=== PATIENT | male | born 1940 | race Caucasian/White ===

== ENCOUNTER 2019-09-15 11:15 | Inpatient (IN) | payer MEDICARE, OTHER, SELFPAY ==
[2019-09-15] VITALS (8 sets, daily range): BP systolic 120–158; BP diastolic 60–86; PULSE 70–95; RESP 17–22; TEMP 36.4–36.8; O2SAT 94–100; BMI 31.4; BMI 30.2
--- NOTE | 2019-09-15 12:03 | CT_ITS ---
STUDY: CT ABDOMEN AND PELVIS WITHOUT CONTRAST REASON FOR EXAM: Male, 79 years old. ABD PAIN, DISTENTION, WEAKNESS -- DIARRHEA X1 WEEK AGO, NOW HAS CONSTIPATION X3 DAYS -- FELL X1 WEEK AGO- LARGE CONTUSION MID BACK -- HX-TIA,AFIB,HTN,DIAB,GERD RADIATION DOSAGE (If Supplied By Facility): CTDIvol = ( 17.98 ) mGy, DLP = ( 875.73 ) mGycm TECHNIQUE: Transaxial images were obtained from the dome of the diaphragm to the symphysis pubis without oral contrast, and without intravenous contrast. Sagittal and coronal images were reconstructed. Individualized dose optimization techniques were used for this CT. COMPARISON: None. FINDINGS: The visualized lung bases are unremarkable. The visualized portions of the heart are within normal limits. Normal liver. There are multiple gallstones. Normal spleen. Normal pancreas. Normal bilateral adrenal glands. There is moderate to severe by the hydronephrosis is more prominent on the left side most likely due to urinary bladder outlet obstruction. There is peritoneal fat stranding bilaterally more prominent on the left side suggesting pyelonephritis. Normal visualized stomach. Normal small intestine. There are multiple colonic diverticula consistent with diverticulosis. There is non-visualization of the appendix. There is diffuse atherosclerotic calcification of the abdominal aorta, without a demonstrated aneurysm. Normal inferior vena cava. Normal retroperitoneum. Normal urinary bladder. Normal abdominal wall. There are diffuse degenerative changes of the visualized lumbar spine. CT/Abdomen/Pelvis without Cont IMPRESSION: There is moderate to severe by the hydronephrosis is more prominent on the left side most likely due to urinary bladder outlet obstruction. There is peritoneal fat stranding bilaterally more prominent on the left side suggesting pyelonephritis. Cholelithiasis. Electronically Signed: Benjamín Young, at 13:08 EDT Tel , Service support ,
--- NOTE | 2019-09-15 12:04 | EKG12_ITS ---
Test Reason : SYNC Blood Pressure : / mmHG Vent. Rate : 082 BPM Atrial Rate : 090 BPM P-R Int : 000 ms QRS Dur : 082 ms QT Int : 382 ms P-R-T Axes : 000 052 059 degrees QTc Int : 446 ms Atrial fibrillation with premature ventricular or aberrantly conducted complexes Abnormal ECG Confirmed by FRANK CLARKE, KYLEE ([id number]), editor in chief newspaper ERICK RED ([id number]) on 09/16/2019 3:43:40 PM Referred By: DORIAN Confirmed By:KYLEE MARIE MD
--- NOTE | 2019-09-15 12:04 | ED.VIS.GEN ---
History of Present Illness Chief Complaint: Weakness Informant: Patient Onset: Days - 4- Context: Gradual Onset Timing: Continuous Quality: weak Location: all over, nonfocal Current Severity: Severe Maximum Severity: Severe Worsened by: nothing in particular Relieved by: nothing Associated Symptoms: abd distension, no BM x 4d Narrative: Patient states he started having diarrhea about a week ago, it lasted 3 or 4 days and was fairly intense, he had some nausea but no vomiting. Afterward she started having abdominal distention and feeling weaker and weaker despite resolution of the diarrhea. He has had 3 falls recently as a result, 1 of them was today just prior to arrival, after getting out of the shower. He states he never felt lightheaded or had any near syncopal or syncopal episodes, simply just weakness in his legs to the point of falling. He states he sustained a scrape to his left knee but no other injuries. He states weakness is the same bilaterally and in his lower and upper extremities, no back pain associated with this or any of the falls. - Past Medical History (1) GERD (gastroesophageal reflux disease) Status: Chronic (2) Osteoarthritis Status: Chronic (3) HTN (hypertension) Status: Chronic (4) Hyperlipidemia Status: Chronic (5) Type 2 diabetes mellitus with diabetic nephropathy, without long-term current use of insulin Status: Chronic (6) BPH (benign prostatic hyperplasia) Status: Chronic (7) GOLDEN treated with BiPAP Status: Chronic (8) CVA (cerebral vascular accident) Status: Chronic (9) Multiple thyroid nodules Status: Chronic (10) Periodic limb movement disorder Status: Chronic (11) PAF (paroxysmal atrial fibrillation) Status: Chronic Past Medical History - Allergies and Home Meds Allergies/Adverse Reactions: Allergies Penicillins Allergy (Verified 09/15/19 11:16) Hives Primary Care Physician: Brady Drake MD [Primary Care Provider] - Smoking Status: Former smoker Review of Systems General: Reports: Malaise. Denies: Chills, Fever, Sweats Eyes: Denies: Visual changes - bilaterally, Diplopia ENT: Denies: Rhinorrhea, Sore throat Cardiovascular: Denies: Chest pain, Palpitations Respiratory: Denies: Dyspnea, Cough, Dyspnea on exertion Gastrointestinal: Reports: Abdominal pain, Constipation - ? -- no BM in 4d. Denies: Nausea, Vomiting, Diarrhea, Melena, Hematochezia Genitourinary: Denies: Dysuria, Hematuria, Frequency Musculoskeletal: Denies: Neck pain, Back pain, Swelling, Extremity Pain Skin: Reports: Abrasions - left knee. Denies: Rash Neurological: Reports: Weakness - all over, nonfocal, including BUE, Parasthesia - BLE chronic. Denies: Headache Physical Exam Vital Signs/Narrative: Vital Signs Temp Pulse Resp BP Pulse Ox 09/15/19 11:17 97.6 F L 70 17 120/71 100 Inital Vital Signs reviewed: Yes General: Well nourished, Well developed, No Acute Distress - keenly alert, conversive, GCS 15 Head: Normocephalic, Atraumatic Eyes: Perrl, EOMI ENT: Moist mucous membranes, No rhinorrhea, TM's clear Neck: Supple, Nontender, No lymphadenopathy Cardiovascular: Regular rate, Regular rhythm, No murmurs Respiratory: No distress, CTA bilaterally, Chest nontender Abdomen: Soft, Normal bowel sounds, No masses, Tender - LLQ, - - Distended. Negative for: Guarding, Rebound tenderness Back: Nontender, Normal Inspection. Negative for: CVA tenderness Extremities: Nontender, No edema. Negative for: Calf Tenderness Skin: Normal color, No rash, No Trauma Neurological: Alert, Oriented x3, Cranial nerves II-XII grossly intact, Normal Strength, Parasthesia - both feet Psychological: Normal affect, Normal Mood Diagnostic/Tx/Re-eval Impressions Abdomen/Pelvis CT 09/15/19 12:03 IMPRESSION: There is moderate to severe by the hydronephrosis is more prominent on the left side most likely due to urinary bladder outlet obstruction. There is peritoneal fat stranding bilaterally more prominent on the left side suggesting pyelonephritis. Cholelithiasis. Electronically Signed: Benjamín Young, at 13:08 EDT Tel , Service support , 09/15/19 12:03 Abdomen/Pelvis without Cont [CT] Stat Laboratory Results 09/15/19 09/15/19 09/15/19 11:20 11:20 12:25 WBC 13.7 H RBC 3.49 L Hgb 10.7 L Hct 31.6 L MCV 90.5 MCH 30.7 MCHC 33.9 RDW Std Deviation 41.1 RDW Coeff of Vera 12.6 Plt Count 298 MPV 10.0 Immature Gran % (Auto) 0.300 Neut % (Auto) 74.5 H Lymph % (Auto) 11.3 L [place] % (Auto) 13.7 H Eos % (Auto) 0.1 Baso % (Auto) 0.1 Absolute Neuts (auto) 10.2 H Absolute Lymphs (auto) 1.55 Nucleated RBC % 0 Differential Comment COMMENT Diff Path Review May foll Sodium 130 L Potassium 5.2 H Chloride 99 Carbon Dioxide 16.0 L Anion Gap 15 BUN 98 H Creatinine 5.72 H Estim Creat Clear Calc 10.81 Est GFR (MDRD) Af Amer 12 L Est GFR (MDRD) Non-Af 10 L BUN/Creatinine Ratio 17.1 Glucose 122 H Calcium 8.5 Total Bilirubin 0.40 AST 31 ALT 42 Alkaline Phosphatase 151 H Troponin I 0.129 H Total Protein 7.8 Albumin 3.3 Globulin 4.5 H Albumin/Globulin Ratio 0.7 L Lipase 1035 H Urine Color Yellow Urine Clarity Sl. Cloudy Urine pH 6.0 Ur Specific [place] 1.010 Urine Protein 30 H Urine Glucose (UA) Normal Urine Ketones Negative Urine Occult Blood 25 H Urine Nitrite Negative Urine Bilirubin Negative Urine Urobilinogen Normal Ur Leukocyte Esterase Negative Urine RBC 0-5 SEEN Urine WBC 0 SEEN Ur Squamous Epith Cells 0 SEEN Urine Bacteria 1+ Urine Mucus 0 SEEN - Rhythm Strip Rhythm Strip: A-fib Rate: 80 Ectopy: None - EKG Initial EKG Interpretation: No Acute Injury Pattern, Atrial Fibrillation - Rate controlled in the 80s - Medical Decision Making Patient has significant renal failure. He does not have any old labs here available for comparison, but he has a list of diagnoses from the [facility], and there is no renal issues there. This may be why he is feeling so poorly, in addition to the fact that he is borderline uremic. His troponin is nonspecifically elevated. He has a leukocytosis of unknown significance, he has an elevated lipase around the thousand. His abdominal CT does not show obvious etiology of the lipase elevation, he has findings that are consistent with bladder outlet obstruction and possibly bilateral pyelonephritis but his urine does not show signs of infection and he does not have CVA tenderness, also of unknown significance. I discussed with Dr. toth who looked at his scan. It appears he may have a mass in his bladder, and he likely has urinary retention since he is urinating frequently, relatively small amounts, and looks like he has a liter or more of urine in his bladder. He recommends a Hernandes catheter which is placed after we bladder scanned him post void for over 1000 cc. I suspect his elevated troponin is due to his renal failure, he does not have any symptoms of angina or signs of injury on the EKG which shows chronic rate controlled atrial fibrillation. Plan is for admission and further evaluation/testing/treatment. ED Disposition - Plan for ED Patient: Disposition: Acute Care Hospital [facility] Diagnosis: Acute renal failure, Elevated lipase, Atrial fibrillation, Acute urinary retention Referrals: Brady Drake MD [Primary Care Provider] -
[2019-09-15 12:27] LABS: Absolute Lymphocyte Count 1.55 X10^3/uL (0.83-4.51); Absolute Neutrophil Count 10.2 X10^3/uL (2.0-7.7); Basophil# 0.02 X10^3/uL; Basophil% 0.1 % (0-1); Eosinophil# 0.01 X10^3/uL; Eosinophils% 0.1 % (0-5); Hematocrit 31.6 % (40-54); Hemoglobin 10.7 g/dL (13.0-16.5); Lymphocyte # 1.55 X10^3/ul (4.0); Lymphocyte % 11.3 % (19-41); Mean Corp Hgb Conc 33.9 g/dL (32-36); Mean Corpuscular Hgb 30.7 pg (27.0-32.0); Mean Corpuscular Volume 90.5 fL (80-94); Monocyte# 1.87 X10^3/uL; Monocyte% 13.7 % (0-10); NRBC Flagged by Analyzer 0 % (0-5); Neutrophil # 10.17 X10^3/uL (2.7-7.7); Neutrophil % 74.5 % (47-70); POSITIVE DIFFERENTIAL YES; Platelet Count 298 K/mm3 (150-450); RBC Distribution Width CV 12.6 % (11.6-14.6); RBC Distribution Width SD 41.1 fl (35.1-43.9); Red Blood Count 3.49 M/mm3 (4.6-6.2); White Blood Count 13.7 K/mm3 (4.4-11.0)
[2019-09-15] MEDS: 0.9% Normal Saline 1,000 ML 125 ML IV ×2 (12:31→20:08)
[2019-09-15 12:35] LABS: Differential Indicated SCAN CRITERIA MET
[2019-09-15 12:41] LABS: Mucous, Urine 0 SEEN /hpf (<or=2+); Squamous Epithelial Cells - UA 0 SEEN /hpf (0-5); White Blood Cells 0 SEEN /hpf (0-5)
[2019-09-15 12:41] LABS: Albumin, Serum 3.3 g/dL (3.2-5.0); BUN 98 mg/dL (7-18); BUN/Creat Ratio 17.1 RATIO (10-20); Creatinine, Serum 5.72 mg/dL (0.70-1.30); EST Glomerular Filtration Rate 10 mL/min (>60); Est Glom Filt Rate - Afr Amer 12 mL/min (>60); Estimated Creatinine Clearance 10.81 ml/min; Glucose 122 mg/dL (74-106); Protein, Total 7.8 g/dL (6.4-8.2)
[2019-09-15 12:42] LABS: ALB/GLOB Ratio 0.7 RATIO (0.9-2.4); AST(SGOT) 31 U/L (15-37); Alanine Aminotransfer ALT/SGPT 42 U/L (16-61); Alkaline Phosphatase 151 U/L (45-117); Anion Gap 15 (5-15); Calcium,Total 8.5 mg/dL (8.5-10.1); Chloride 99 mmol/L (98-107); Globulin 4.5 g/dL (2.2-4.2); Lipase 1035 U/L (73-393); Potassium 5.2 mmol/L (3.5-5.1); Sodium Level 130 mmol/L (136-145)
[2019-09-15 12:44] LABS: Color, Urine Yellow (Yellow); Glucose, Dipstick Normal (Normal); Ketone-Dipstick Negative (Negative); Leukocyte Esterase-Dipstick Negative /ul (Negative); Nitrite-Dipstick Negative (Negative); Occult Blood-Urine 25 /ul (Negative); Protein-Dipstick 30 mg/dl (Negative); Urine Bilirubin Dipstick Negative (Negative); Urine Clarity Sl. Cloudy (Clear); Urine Urobilinogen Normal (Normal)
[2019-09-15 12:49] LABS: Bacteria 1+ /hpf (None Seen); Red Blood Cells-Urine 0-5 SEEN /hpf (0-5)
--- NOTE | 2019-09-15 15:04 | HP.PCM_ITS ---
Problem List (1) Acute pancreatitis Status: Acute (2) Bladder outlet obstruction Status: Acute (3) Acute kidney injury Status: Acute (4) GERD (gastroesophageal reflux disease) Status: Chronic (5) Osteoarthritis Status: Chronic (6) HTN (hypertension) Status: Chronic (7) Hyperlipidemia Status: Chronic (8) Type 2 diabetes mellitus with diabetic nephropathy, without long-term current use of insulin Status: Chronic (9) BPH (benign prostatic hyperplasia) Status: Chronic (10) GOLDEN treated with BiPAP Status: Chronic (11) CVA (cerebral vascular accident) Status: Chronic (12) Multiple thyroid nodules Status: Chronic (13) Periodic limb movement disorder Status: Chronic (14) PAF (paroxysmal atrial fibrillation) Status: Chronic (15) Acute urinary retention Status: Acute History of Present Illness Date of Admission: 09/15/19 Chief Complaint: Abdominal distention and diarrhea for 4 days The patient is a 79 year old M with multiple comorbidities as listed above for abdominal distention. Prior to that he had diarrhea about a week ago for which he took [id number] Lomotil which resulted into constipation and he did not move bowel for 3 to 4 days. Patient had distention along with mid abdominal pain which migrated to flanks and on the back mainly on left upper back. Patient denies fever, chills, cough, chest pain or pressure. Denies GI bleed. Patient has increased frequency and urgency with incomplete emptying of bladder. Has chronic bladder incontinence and BPH. Denies burning micturition or fever. In ED, vitals are stable. Initial labs in ER shows BUN/creatinine 98/5.72, leukocytosis with left shift. Sodium 130, K5.2, bicarb 16 with anion gap 15. UA 0 WBC, negative nitrite and leukocyte esterase. CT abdomen and pelvis without contrast was done. Reported moderate to severe bilateral hydronephrosis left more than right due to bladder outlet obstruction. [] 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) BPH (benign prostatic hyperplasia) (Chronic) GOLDEN treated with BiPAP (Chronic) CVA (cerebral vascular accident) (Chronic) Multiple thyroid nodules (Chronic) Periodic limb movement disorder (Chronic) PAF (paroxysmal atrial fibrillation) (Chronic) Allergies Penicillins Allergy (Verified 09/15/19 11:16) Hives Home Medications: Ambulatory Orders Medication Instructions Recorded Apixaban [Eliquis] 5 mg PO BID 09/15/19 Hydrochlorothiazide 12.5 mg PO DAILY 09/15/19 Lisinopril [Zestril] 20 mg PO DAILY 09/15/19 Metformin HCl 500 mg PO DAILY 09/15/19 Pantoprazole Sodium [Protonix] 20 mg PO DAILY 09/15/19 Rosuvastatin Calcium [Crestor] 40 mg PO DAILY 09/15/19 Tamsulosin HCl 0.4 mg PO QHS 09/15/19 Smoking Status: Former smoker Review of Systems Constitutional: Reports: Anorexia, Malaise, Weakness. Denies: Chills, Fever HEENT: Denies: Head Aches, Sinus Congestion, Sinus Drainage Cardiovascular: Denies: Chest Pain, Palpitations Respiratory: Reports: Shortness of breath upon exertion. Denies: Cough, Shortness of breath at rest, Sputum production Gastrointestinal: Denies: Abdominal Pain, Nausea, Vomiting Genitourinary: Reports: Frequency, Hesitancy, Incontinence, Retention, Urgency. Denies: Dysuria Musculoskeletal: Reports: Joint Pain. Denies: Joint Tenderness Skin: Denies: Rash, Wounds Neurological: Reports: Balance problems. Denies: Focal weakness, Numbness, Tingling Psychiatric: Denies: Anxiety, Depression, Homicidal Ideations, Suicidal Ideations Hematologic/ Lymphatic: Denies: Easy Bruising, Easy Bleeding VTE Information - Inpt Only VTE Present on Admission: No VTE Mechan Device Prophylaxis: None VTE Pharm Prophylaxis ordered?: Yes Patient Problems: Active and Suspected Problems Acute urinary retention (Acute) Acute pancreatitis (Acute) Bladder outlet obstruction (Acute) Acute kidney injury (Acute) - Physical Exam Vitals/I&O's: Vital Signs Temp Pulse Resp BP Pulse Ox 97.6 F L 82 22 H 158/74 H 96 09/15/19 11:17 09/15/19 13:25 09/15/19 13:25 09/15/19 13:25 09/15/19 13:25 Oxygen Delivery Method Room Air Weight: 222 lb 7.143 oz Body Mass Index (BMI) 31.4 General: Alert, Oriented x3, Cooperative HEENT: Atraumatic, PERRLA, EOMI, Normocephalic Oral: No Gingival or Mucosal Lesions/ Ulcerations, Dry Mucosa Neck: Supple, No JVD, Negative Carotid Bruits Lungs: Clear to auscultation, Normal air movement, No rhonchi, No wheeze, No rales Cardiovascular: Regular rate, No murmurs Abdomen: Bowel Sounds Present, Soft, Hypoactive Bowel Sounds, Distended - Generalized abdominal distention mainly in the mid abdomen., Tender - Mild tenderness present around mid abdomen. Tenderness also present on the left renal angle/left paravertebral region Extremities: No edema, Capillary Refill Less than 3 Seconds Skin: No rashes, No breakdown Musculoskeletal: No Tenderness to Palpation of Joints or Extremities Neurological: Cranial nerves II-XII grossly intact Psych/Mental Status: Normal Affect, Appropriate Laboratory Results 09/15/19 11:20: WBC 13.7 H, RBC 3.49 L, Hgb 10.7 L, Hct 31.6 L, MCV 90.5, MCH 30.7, MCHC 33.9, RDW Std Deviation 41.1, RDW Coeff of Vera 12.6, Plt Count 298, MPV 10.0, Immature Gran % (Auto) 0.300, Neut % (Auto) 74.5 H, Lymph % (Auto) 11.3 L, [place] % (Auto) 13.7 H, Eos % (Auto) 0.1, Baso % (Auto) 0.1, Absolute Neuts (auto) 10.2 H, Absolute Lymphs (auto) 1.55, Nucleated RBC % 0, Differential Comment COMMENT, Diff Path Review August09/15/19 11:20: Sodium 130 L, Potassium 5.2 H, Chloride 99, Carbon Dioxide 16.0 L, Anion Gap 15, BUN 98 H, Creatinine 5.72 H, Estim Creat Clear Calc 10.81, Est GFR (MDRD) Af Amer 12 L, Est GFR (MDRD) Non-Af 10 L, BUN/Creatinine Ratio 17.1, Glucose 122 H, Calcium 8.5, Total Bilirubin 0.40, AST 31, ALT 42, Alkaline Phosphatase 151 H, Troponin I 0.129 H, Total Protein 7.8, Albumin 3.3, Globulin 4.5 H, Albumin/Globulin Ratio 0.7 L, Lipase 1035 H 09/15/19 12:25: Urine Color Yellow, Urine Clarity Sl. Cloudy, Urine pH 6.0, Ur Specific [place] 1.010, Urine Protein 30 H, Urine Glucose (UA) Normal, Urine Ketones Negative, Urine Occult Blood 25 H, Urine Nitrite Negative, Urine Bilirubin Negative, Urine Urobilinogen Normal, Ur Leukocyte Esterase Negative, Urine RBC 0-5 SEEN, Urine WBC 0 SEEN, Ur Squamous Epith Cells 0 SEEN, Urine Ba cteria 1+, Urine Mucus 0 SEEN Current Medications Sodium Chloride () 1,000 mls @ 125 mls/hr IV .Q8H SANDER Last Admin: 09/15/19 12:31 Dose: 125 mls/hr Documented by: Assessment/Plan All Active Problems Acute urinary retention (Acute) Acute pancreatitis (Acute) Bladder outlet obstruction (Acute) Acute kidney injury (Acute) The patient is a 79 year old M with multiple comorbidities as listed above for abdominal distention and abdominal pain. Patient has increased frequency and urgency with incomplete emptying of bladder. Has chronic bladder incontinence and BPH. Denies burning micturition or fever. In ED, vitals are stable. Initial labs in ER shows BUN/creatinine 98/5.72, leukocytosis with left shift. Sodium 130, K5.2, bicarb 16 with anion gap 15. UA 0 WBC, negative nitrite and leukocyte esterase. CT abdomen and pelvis without contrast was done. Reported moderate to severe bilateral hydronephrosis left more than right due to bladder outlet obstruction. 1. Acute kidney injury on CKD stage III secondary to bladder outlet obstruction/BPH/neurogenic bladder and bilateral pyelonephritis predominantly left-sided: Patient is being admitted in PCU. IV fluid normal saline 125 mils per hour. Monitor intake and output, electrolytes and kidney function. Patient had Hernandes catheter inserted in the ED. 1000 mL clear urine came out spontaneously. Urologist Dr. Couch is been consulted from ER physician. CT reported mild peritoneal fat stranding bilaterally more prominent left side suggesting pyonephritis. UA is bland.. Urine culture ordered. Empirically started on IV ceftriaxone. Patient had hives many years ago after penicillin. Solu-Medrol 60 mg IV 1 dose half an hour prior to ceftriaxone. Hold nephrotoxic medications including HCTZ, metformin, lisinopril and Crestor. 2. Acute pancreatitis, exact etiology unclear: Lipase is elevated. CT abdomen shows multiple gallstones probably asymptomatic as patient does not have right upper quadrant or epigastric tenderness. Patient has retroperitoneal inflammation/infiltrates on the CT abdomen probably from left pyelonephritis. Discussed with the surgeon. He agreed to see patient. Keep the patient n.p.o. except medications IV fluid normal saline. 3. Electrolyte abnormality: Hyponatremia and hypokalemia most likely secondary to hypovolemia/volume depletion: IV fluid normal saline. Repeat electrolytes. EKG shows A. fib with PVCs at 82 bpm. 4. Paroxysmal A. fib on heart rate is controlled. Hold Eliquis as creatinine clearance about 10 mL/min. 5. Type 2 diabetes mellitus with diabetic nephropathy: Accu-Chek SHS cover with blood sliding scale. 6. Old CVA with residual gait disorder cream: PT and OT ordered. 7. Other comorbidities include hypertension, dyslipidemia, obstructive sleep apnea on BiPAP, periodic limb movement disorder: Patient abdominal distention may be partially from BiPAP. Hold on BiPAP for few days until abdominal distention resolved. Multiple comorbidities complicates the present care and expect difficult and delay recovery DVT prophylaxis: On heparin 5000 units cutaneous twice daily Living will/advanced directive/end of life care: Patient does have living will or advanced directive. After discussion of procedures involved with full code, DNR CC arrest and DNR CC, the patient opted for DNR-CC Arrest Patient does not want artificial life support including intubation, tube feed, ventilator and/chest compression, central venous catheter, vasopressor and DC shock if needed DNR CC arrest. Total time spent in [id number] encounter in discussion of advanced directive 16 minutes. Clinical Impression(s) from Imaging Studies Abdomen/Pelvis CT 09/15/19 12:03 IMPRESSION: There is moderate to severe by the hydronephrosis is more prominent on the left side most likely due to urinary bladder outlet obstruction. There is peritoneal fat stranding bilaterally more prominent on the left side suggesting pyelonephritis. Cholelithiasis. Inpatient E&M: 50724 Init Hosp L3 Procedures: 38994 Advncd Care Plan 30 Min
--- NOTE | 2019-09-15 16:47 | PCM.CONS.U ---
Problem List (1) BPH (benign prostatic hyperplasia) Status: Chronic Qualifiers: Lower urinary tract symptom detail: urinary retention Qualified Code(s): N40.1 - Benign prostatic hyperplasia with lower urinary tract symptoms; R33.8 - Other retention of urine Comment: Bilateral hydronephrosis Reason for Consult Date of Consultation: 09/15/19 Reason for Consultation: Bilateral hydronephrosis acute urinary retention and BPH with obstruction History of Present Illness: The patient is a 79 year old male who presented to the hospital with abdominal pain and had been urinating frequently small volumes now for quite some time could not really remember how long, he did see a urologist long time ago but has not seen one in a while. No history of prostate cancer. No history of prior prostate surgery. Presented with abdominal pain CAT scan was done that demonstrated bilateral hydronephrosis and a distended bladder catheter was put in a significant volume of urine was drained out another urine is slightly bloody but clearing. He does have an elevated creatinine on admission with acute kidney injury. 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) BPH (benign prostatic hyperplasia) (Chronic) Bilateral hydronephrosis GOLDEN treated with BiPAP (Chronic) CVA (cerebral vascular accident) (Chronic) Multiple thyroid nodules (Chronic) Periodic limb movement disorder (Chronic) PAF (paroxysmal atrial fibrillation) (Chronic) Allergies Penicillins Allergy (Verified 09/15/19 11:16) Hives Home Medications: Ambulatory Orders Medication Instructions Recorded Apixaban [Eliquis] 5 mg PO BID 09/15/19 Hydrochlorothiazide 12.5 mg PO DAILY 09/15/19 Lisinopril [Zestril] 20 mg PO DAILY 09/15/19 Metformin HCl 500 mg PO DAILY 09/15/19 Pantoprazole Sodium [Protonix] 20 mg PO DAILY 09/15/19 Rosuvastatin Calcium [Crestor] 40 mg PO DAILY 09/15/19 Tamsulosin HCl 0.4 mg PO QHS 09/15/19 Surgical History: no surgical history Smoking Status: Former smoker Review of Systems Constitutional: Denies: Chills, Fever, Weight Change HEENT: Denies: Head Aches, Sinus Congestion, Sinus Drainage Cardiovascular: Denies: Chest Pain, Palpitations Respiratory: Denies: Cough, Shortness of breath at rest, Sputum production Gastrointestinal: Denies: Abdominal Pain, Nausea, Vomiting Genitourinary: Denies: Dysuria Musculoskeletal: Denies: Joint Pain, Joint Tenderness Skin: Denies: Rash, Wounds Neurological: Denies: Numbness, Tingling, Focal weakness Psychiatric: Denies: Anxiety, Depression, Homicidal Ideations, Suicidal Ideations Hematologic/ Lymphatic: Denies: Easy Bruising, Easy Bleeding Physical Exam - Physical Exam Vital Signs Temp 98 F 09/15/19 15:40 Pulse 77 09/15/19 16:00 Resp 18 09/15/19 15:40 BP 153/71 H 09/15/19 15:40 Pulse Ox 94 09/15/19 15:40 Intake & Output 09/13/19 09/14/19 09/15/19 23:59 23:59 23:59 Weight: 95.5 kg General: Alert, Oriented x3 HEENT: Atraumatic Oral: Moist Mucosa Neck: Supple Lungs: Normal air movement Cardiovascular: Regular Rhythm Abdomen: Soft, Obese Laboratory Tests Past 24 Hrs 09/15/19 09/15/19 09/15/19 11:20 11:20 12:25 WBC 13.7 H RBC 3.49 L Hgb 10.7 L Hct 31.6 L MCV 90.5 MCH 30.7 MCHC 33.9 RDW Std Deviation 41.1 RDW Coeff of Vera 12.6 Plt Count 298 MPV 10.0 Immature Gran % (Auto) 0.300 Neut % (Auto) 74.5 H Lymph % (Auto) 11.3 L [place] % (Auto) 13.7 H Eos % (Auto) 0.1 Baso % (Auto) 0.1 Absolute Neuts (auto) 10.2 H Absolute Lymphs (auto) 1.55 Nucleated RBC % 0 Differential Comment COMMENT Diff Path Review May foll Sodium 130 L Potassium 5.2 H Chloride 99 Carbon Dioxide 16.0 L Anion Gap 15 BUN 98 H Creatinine 5.72 H Estim Creat Clear Calc 10.81 Est GFR (MDRD) Af Amer 12 L Est GFR (MDRD) Non-Af 10 L BUN/Creatinine Ratio 17.1 Glucose 122 H Calcium 8.5 Total Bilirubin 0.40 GGT AST 31 ALT 42 Alkaline Phosphatase 151 H Troponin I 0.129 H Total Protein 7.8 Albumin 3.3 Globulin 4.5 H Albumin/Globulin Ratio 0.7 L Lipase 1035 H Urine Color Yellow Urine Clarity Sl. Cloudy Urine pH 6.0 Ur Specific [place] 1.010 Urine Protein 30 H Urine Glucose (UA) Normal Urine Ketones Negative Urine Occult Blood 25 H Urine Nitrite Negative Urine Bilirubin Negative Urine Urobilinogen Normal Ur Leukocyte Esterase Negative Urine RBC 0-5 SEEN Urine WBC 0 SEEN Ur Squamous Epith Cells 0 SEEN Urine Bacteria 1+ Urine Mucus 0 SEEN 09/15/19 09/15/19 15:57 15:57 WBC RBC Hgb Hct MCV MCH MCHC RDW Std Deviation RDW Coeff of Vera Plt Count MPV Immature Gran % (Auto) Neut % (Auto) Lymph % (Auto) [place] % (Auto) Eos % (Auto) Baso % (Auto) Absolute Neuts (auto) Absolute Lymphs (auto) Nucleated RBC % Differential Comment Diff Path Review Sodium Potassium Chloride Carbon Dioxide Anion Gap BUN Creatinine Estim Creat Clear Calc Est GFR (MDRD) Af Amer Est GFR (MDRD) Non-Af BUN/Creatinine Ratio Glucose Calcium Total Bilirubin GGT Pending AST ALT Alkaline Phosphatase Troponin I 0.147 H Total Protein Albumin Globulin Albumin/Globulin Ratio Lipase Urine Color Urine Clarity Urine pH Ur Specific [place] Urine Protein Urine Glucose (UA) Urine Ketones Urine Occult Blood Urine Nitrite Urine Bilirubin Urine Urobilinogen Ur Leukocyte Esterase Urine RBC Urine WBC Ur Squamous Epith Cells Urine Bacteria Urine Mucus Assessment/Plan All Active Problems Acute urinary retention (Acute) Acute pancreatitis (Acute) Bladder outlet obstruction (Acute) Acute kidney injury (Acute) 79-year-old male who presents with bladder outlet obstruction, BPH with obstruction, distended urinary bladder retention of urine, bilateral hydronephrosis. Very large prostate. He will need to continue with Hernandes catheter drainage. The urine slightly bloody today so continue with gentle irrigation manually as needed also gentle hydration. Follow creatinines hopefully his kidney function will improve to normal but will see where it nadirs at. I spoke to the patient regarding this condition today I told him most likely he will need prostate surgery and a prostate biopsy make sure he does not prostate cancer. For now continue with catheter drainage. I will follow him while he is in the hospital.
[2019-09-15 17:00] LABS: GGTP 185 U/L (15-85)
[2019-09-15 18:15] LABS: Bedside Glucose 98 mg/dL (70-110)
[2019-09-15] MEDS: Tamsulosin HCl 0.4 MG Capsule PO (22:09)
[2019-09-15] MEDS: Heparin Injection (Vial) 5,000 UNIT/ML VIAL 5000 UNIT SC (22:09)
[2019-09-16] VITALS (14 sets, daily range): BP systolic 76–104; BP diastolic 41–60; PULSE 63–87; RESP 16–18; TEMP 36.2–36.9; O2SAT 95–100
[2019-09-16 00:01] LABS: Bedside Glucose 120 mg/dL (70-110)
[2019-09-16 05:25] LABS: Absolute Lymphocyte Count 0.72 X10^3/uL (0.83-4.51); Absolute Neutrophil Count 7.7 X10^3/uL (2.0-7.7); Basophil# 0.01 X10^3/uL; Basophil% 0.1 % (0-1); Hematocrit 30.4 % (40-54); Lymphocyte # 0.72 X10^3/ul (4.0); Lymphocyte % 8.1 % (19-41); Mean Corp Hgb Conc 32.9 g/dL (32-36); Mean Corpuscular Hgb 30.5 pg (27.0-32.0); Mean Corpuscular Volume 92.7 fL (80-94); Mean Platelet Vol. 9.9 fl (6.2-12.0); Monocyte# 0.43 X10^3/uL; Monocyte% 4.8 % (0-10); NRBC Flagged by Analyzer 0 % (0-5); Neutrophil # 7.72 X10^3/uL (2.7-7.7); Neutrophil % 86.6 % (47-70); POSITIVE MORPHOLOGY YES; Platelet Count 280 K/mm3 (150-450); RBC Distribution Width CV 12.9 % (11.6-14.6); RBC Distribution Width SD 43.4 fl (35.1-43.9); Red Blood Count 3.28 M/mm3 (4.6-6.2); White Blood Count 8.9 K/mm3 (4.4-11.0)
[2019-09-16 05:30] LABS: Differential Indicated SCAN CRITERIA MET
[2019-09-16 05:46] LABS: ALB/GLOB Ratio 0.6 RATIO (0.9-2.4); AST(SGOT) 33 U/L (15-37); Alanine Aminotransfer ALT/SGPT 42 U/L (16-61); Albumin, Serum 2.7 g/dL (3.2-5.0); Alkaline Phosphatase 142 U/L (45-117); Anion Gap 16 (5-15); BUN 96 mg/dL (7-18); BUN/Creat Ratio 18.8 RATIO (10-20); Calcium,Total 7.7 mg/dL (8.5-10.1); Chloride 109 mmol/L (98-107); Creatinine, Serum 5.12 mg/dL (0.70-1.30); EST Glomerular Filtration Rate 12 mL/min (>60); Est Glom Filt Rate - Afr Amer 14 mL/min (>60); Estimated Creatinine Clearance 12.08 ml/min; Globulin 4.2 g/dL (2.2-4.2); Glucose 127 mg/dL (74-106); Lipase 660 U/L (73-393); Magnesium 1.2 mg/dL (1.6-2.6); Phosphorus 6.2 mg/dL (2.5-4.9); Potassium 5.5 mmol/L (3.5-5.1); Protein, Total 6.9 g/dL (6.4-8.2); Sodium Level 135 mmol/L (136-145)
[2019-09-16 06:41] LABS: Bedside Glucose 118 mg/dL (70-110)
--- NOTE | 2019-09-16 07:10 | PCM.PROGNOTE ---
Patient Problems: Active and Suspected Problems Acute urinary retention (Acute) Acute pancreatitis (Acute) Bladder outlet obstruction (Acute) Acute kidney injury (Acute) Subjective: 79-year-old male admitted for retention of urine bilateral hydronephrosis elevated creatinine, creatinine today is still fairly high at 5.1 he still making urine, the urine is clearing and less bloody today. Is hoping that the creatinine would come down little further but still fairly high. Also in reviewing his records his troponin was elevated I explained to the patient probably would not be able to do any surgery on him until he gets cardiac clearance with an elevated troponin. He denies any chest pain or shortness of breath etc. but may be prudent to have him see cardiology here for clearance. He is in agreement with that. - Physical Exam Vitals/I&O's: Vital Signs Temp Pulse Resp BP Pulse Ox 98.2 F 77 18 95/60 99 09/16/19 03:40 09/16/19 03:40 09/16/19 03:40 09/16/19 03:40 09/16/19 03:40 Oxygen Delivery Method Room Air Weight: 95.5 kg Body Mass Index (BMI) 30.2 Intake and Output for Last 24 Hours 09/14/19 09/15/19 09/16/19 23:59 23:59 23:59 Intake Total 1070.41 / 1070.41 1000 / 1000 Output Total 3050 / 3050 1000 / 1000 Balance -1978.59 / -1978.59 0 / 0 General: Alert, Oriented x3, Cooperative HEENT: Atraumatic, PERRLA, EOMI, Normocephalic Neck: Supple, No JVD, Negative Carotid Bruits Lungs: Clear to auscultation, Normal air movement Cardiovascular: Regular rate, No murmurs Abdomen: Bowel Sounds Present, Soft, Non Tender Extremities: No edema, Capillary Refill Less than 3 Seconds Skin: No rashes, No breakdown Musculoskeletal: No Tenderness to Palpation of Joints or Extremities Neurological: Cranial nerves II-XII grossly intact Psych/Mental Status: Normal Affect, Appropriate Laboratory Results 09/15/19 11:20: WBC 13.7 H, RBC 3.49 L, Hgb 10.7 L, Hct 31.6 L, MCV 90.5, MCH 30.7, MCHC 33.9, RDW Std Deviation 41.1, RDW Coeff of Vera 12.6, Plt Count 298, MPV 10.0, Immature Gran % (Auto) 0.300, Neut % (Auto) 74.5 H, Lymph % (Auto) 11.3 L, [place] % (Auto) 13.7 H, Eos % (Auto) 0.1, Baso % (Auto) 0.1, Absolute Neuts (auto) 10.2 H, Absolute Lymphs (auto) 1.55, Nucleated RBC % 0, Differential Comment COMMENT, Diff Path Review August09/15/19 11:20: Sodium 130 L, Potassium 5.2 H, Chloride 99, Carbon Dioxide 16.0 L, Anion Gap 15, BUN 98 H, Creatinine 5.72 H, Estim Creat Clear Calc 10.81, Est GFR (MDRD) Af Amer 12 L, Est GFR (MDRD) Non-Af 10 L, BUN/Creatinine Ratio 17.1, Glucose 122 H, Calcium 8.5, Total Bilirubin 0.40, AST 31, ALT 42, Alkaline Phosphatase 151 H, Troponin I 0.129 H, Total Protein 7.8, Albumin 3.3, Globulin 4.5 H, Albumin/Globulin Ratio 0.7 L, Lipase 1035 H 09/15/19 12:25: Urine Color Yellow, Urine Clarity Sl. Cloudy, Urine pH 6.0, Ur Specific [place] 1.010, Urine Protein 30 H, Urine Glucose (UA) Normal, Urine Ketones Negative, Urine Occult Blood 25 H, Urine Nitrite Negative, Urine Bilirubin Negative, Urine Urobilinogen Normal, Ur Leukocyte Esterase Negative, Urine RBC 0-5 SEEN, Urine WBC 0 SEEN, Ur Squamous Epith Cells 0 SEEN, Urine Bacteria 1+, Urine Mucus 0 SEEN 09/15/19 15:57: Troponin I 0.147 H 09/15/19 15:57: GGT 185 H 09/15/19 18:10: POC Glucose 98 09/15/19 18:40: Troponin I 0.134 H 09/15/19 23:53: POC Glucose 120 H 09/16/19 05:00: WBC 8.9, RBC 3.28 L, Hgb 10.0 L, Hct 30.4 L, MCV 92.7, MCH 30.5, MCHC 32.9, RDW Std Deviation 43.4, RDW Coeff of Vera 12.9, Plt Count 280, MPV 9.9, Immature Gran % (Auto) 0.400, Neut % (Auto) 86.6 H, Lymph % (Auto) 8.1 L, [place] % (Auto) 4.8, Eos % (Auto) 0.0, Baso % (Auto) 0.1, Absolute Neuts (auto) 7.7, Absolute Lymphs (auto) 0.72 L, Nucleated RBC % 0, Differential Comment COMMENT 09/16/19 05:00: Sodium 135 L, Potassium 5.5 H, Chloride 109 H, Carbon Dioxide 10.0 L, Anion Gap 16 H, BUN 96 H, Creatinine 5.12 H, Estim Creat Clear Calc 12.08, Est GFR (MDRD) Af Amer 14 L, Est GFR (MDRD) Non-Af 12 L, BUN/Creatinine Ratio 18.8, Glucose 127 H, Calcium 7.7 L, Phosphorus 6.2 H, Magnesium 1.2 L, Total Bilirubin 0.30, AST 33, ALT 42, Alkaline Phosphatase 142 H, Total Protein 6.9, Albumin 2.7 L, Globulin 4.2, Albumin/Globulin Ratio 0.6 L, Lipase 660 H 09/16/19 05:50: POC Glucose 118 H Current Medications Acetaminophen (Tylenol) 650 mg PO Q6H PRN PRN PRN Reason: Pain Score 1-10/Temp > 100.7 F Albuterol Sulfate (Ventolin Aerosols) 2.5 mg INHALATION Q2H PRN PRN PRN Reason: SOB/Wheezing Dextrose (D50w Syringe) 0 gm IV X1 PRN; Protocol PRN Reason: Hypoglycemia Glucagon () 1 mg IM .X1 PRN PRN Reason: Hypoglycemia Heparin Sodium (Porcine) (Heparin Na) 5,000 unit SC Q12 [facility] Last Admin: 09/15/19 22:09 Dose: 5,000 unit Documented by: Sodium Chloride () 250 mls @ 15 mls/hr IV .[id number] PRN PRN Reason: Saline Flush Sodium Chloride () 250 mls @ 15 mls/hr IV .[id number] PRN PRN Reason: Additional IVPB Infusion Ceftriaxone Sodium 2 gm/ (Sodium Chloride) 50 mls @ 100 mls/hr IV Q24 [facility] Last Infusion: 09/15/19 18:31 Dose: Infused Documented by: Pantoprazole Sodium 40 mg/ (Sodium Chloride) 110 mls @ 330 mls/hr IV Q24 [facility] Last Infusion: 09/15/19 18:27 Dose: Infused Documented by: Insulin Human Lispro (Humalog Kwikpen (Bkc)) 0 unit SC Q6 [facility]; Protocol Last Admin: 09/16/19 06:17 Dose: Not Given Documented by: Morphine Sulfate () 2 mg IV Q3H PRN PRN PRN Reason: Pain Score 4-10/10 Nitroglycerin (Nitrostat) 0.4 mg SUBLINGUAL Q5M PRN PRN Reason: CARDIAC/CHEST PAIN Nutritional Formula (Lactose Free) (Glucerna Shake) 120 ml PO TIDCM [facility] Last Admin: 09/15/19 17:18 Dose: Not Given Documented by: Ondansetron HCl (Zofran) 4 mg IV Q8H PRN PRN PRN Reason: NAUSEA/VOMITING Prochlorperazine Edisylate (Compazine Iv) 5 mg IV Q4H PRN PRN PRN Reason: Breakthrough Nausea/Vomiting Sodium Chloride () 10 - 40 ml IV UD PRN PRN Reason: SALINE FLUSH Tamsulosin HCl (Flomax) 0.4 mg PO QHS [facility] Last Admin: 09/15/19 22:09 Dose: 0.4 mg Documented by: Medical Necessity - Tobacco Use Smoking Status: Former smoker Assessment/Plan All Active Problems Acute urinary retention (Acute) Acute pancreatitis (Acute) Bladder outlet obstruction (Acute) Acute kidney injury (Acute) 79-year-old male multiple medical problems presented to hospital with retention of urine bilateral hydronephrosis elevated creatinine acute kidney injury, hopefully his creatinine will improve with constant drainage some little improvement but not as much as I would anticipate he may have chronic renal sufficiency but time will tell as he continues to recover from his obstruction. He did have an elevated troponin on admission and explained to the patient that I will need cardiac clearance before considering prostate surgery we will see if hospitalist will be willing to do a work-up for him cardiology plasencia? Continue with catheter drainage the urine is clearing and after discharge he can follow-up with me.
--- NOTE | 2019-09-16 07:50 | CON.PCM_ITS ---
Problem List (1) Acute pancreatitis Status: Acute Reason for Consult Date of Consultation: 09/16/19 History of Present Illness: The patient is a 79 year old M who presented with obstructive uropathy. The patient was admitted with abdominal pain and found to have bladder outlet obstruction with elevated creatinine and he was found to have an elevated lipase at 1000. The patient was having pain yesterday but currently is having no abdominal pain. He is having no nausea or vomiting. 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) BPH (benign prostatic hyperplasia) (Chronic) Bilateral hydronephrosis GOLDEN treated with BiPAP (Chronic) CVA (cerebral vascular accident) (Chronic) Multiple thyroid nodules (Chronic) Periodic limb movement disorder (Chronic) PAF (paroxysmal atrial fibrillation) (Chronic) Allergies Penicillins Allergy (Verified 09/15/19 11:16) Hives Home Medications: Ambulatory Orders Medication Instructions Recorded Apixaban [Eliquis] 5 mg PO BID 09/15/19 Hydrochlorothiazide 12.5 mg PO DAILY 09/15/19 Lisinopril [Zestril] 20 mg PO DAILY 09/15/19 Metformin HCl 500 mg PO DAILY 09/15/19 Pantoprazole Sodium [Protonix] 20 mg PO DAILY 09/15/19 Rosuvastatin Calcium [Crestor] 40 mg PO DAILY 09/15/19 Tamsulosin HCl 0.4 mg PO QHS 09/15/19 Surgical History: no surgical history Smoking Status: Former smoker Review of Systems Constitutional: Denies: Anorexia, Fever Eyes: Denies: Blurred vision Cardiovascular: Denies: Chest Pain Respiratory: Denies: Cough, Shortness of Breath Gastrointestinal: Denies: Abdominal Pain, Nausea, Vomiting Genitourinary: Reports: Retention Skin: Denies: Jaundice Hematologic/ Lymphatic: Denies: Anemia Patient Problems: Active and Suspected Problems Acute urinary retention (Acute) Acute pancreatitis (Acute) Bladder outlet obstruction (Acute) Acute kidney injury (Acute) - Physical Exam Vitals/I&O's: Vital Signs Temp Pulse Resp BP Pulse Ox 98.2 F 77 18 95/60 99 09/16/19 03:40 09/16/19 03:40 09/16/19 03:40 09/16/19 03:40 09/16/19 03:40 Oxygen Delivery Method Room Air Weight: 210 lb 8.663 oz Body Mass Index (BMI) 30.2 Intake and Output for Last 24 Hours 09/14/19 09/15/19 09/16/19 23:59 23:59 23:59 Intake Total 1070.41 / 1070.41 1000 / 1000 Output Total 3050 / 3050 1000 / 1000 Balance -1978.59 / - 0 / 0 General: Alert, Oriented x3, Cooperative HEENT: PERRLA Lungs: Normal air movement Cardiovascular: Regular rate, Regular Rhythm Abdomen: Soft, Non Tender, Non-Distended Extremities: No clubbing Musculoskeletal: No Muscle Wasting Laboratory Results 09/15/19 11:20: WBC 13.7 H, RBC 3.49 L, Hgb 10.7 L, Hct 31.6 L, MCV 90.5, MCH 30.7, MCHC 33.9, RDW Std Deviation 41.1, RDW Coeff of Vera 12.6, Plt Count 298, MPV 10.0, Immature Gran % (Auto) 0.300, Neut % (Auto) 74.5 H, Lymph % (Auto) 11.3 L, [place] % (Auto) 13.7 H, Eos % (Auto) 0.1, Baso % (Auto) 0.1, Absolute Neuts (auto) 10.2 H, Absolute Lymphs (auto) 1.55, Nucleated RBC % 0, Differential Comment COMMENT, Diff Path Review August09/15/19 11:20: Sodium 130 L, Potassium 5.2 H, Chloride 99, Carbon Dioxide 16.0 L, Anion Gap 15, BUN 98 H, Creatinine 5.72 H, Estim Creat Clear Calc 10.81, Est GFR (MDRD) Af Amer 12 L, Est GFR (MDRD) Non-Af 10 L, BUN/Creatinine Ratio 17.1, Glucose 122 H, Calcium 8.5, Total Bilirubin 0.40, AST 31, ALT 42, Alkaline Phosphatase 151 H, Troponin I 0.129 H, Total Protein 7.8, Albumin 3.3, Globulin 4.5 H, Albumin/Globulin Ratio 0.7 L, Lipase 1035 H 09/15/19 12:25: Urine Color Yellow, Urine Clarity Sl. Cloudy, Urine pH 6.0, Ur Specific [place] 1.010, Urine Protein 30 H, Urine Glucose (UA) Normal, Urine Ketones Negative, Urine Occult Blood 25 H, Urine Nitrite Negative, Urine Bilirubin Negative, Urine Urobilinogen Normal, Ur Leukocyte Esterase Negative, Urine RBC 0-5 SEEN, Urine WBC 0 SEEN, Ur Squamous Epith Cells 0 SEEN, Urine Bacteria 1+, Urine Mucus 0 SEEN 09/15/19 15:57: Troponin I 0.147 H 09/15/19 15:57: GGT 185 H 09/15/19 18:10: POC Glucose 98 09/15/19 18:40: Troponin I 0.134 H 09/15/19 23:53: POC Glucose 120 H 09/16/19 05:00: WBC 8.9, RBC 3.28 L, Hgb 10.0 L, Hct 30.4 L, MCV 92.7, MCH 30.5, MCHC 32.9, RDW Std Deviation 43.4, RDW Coeff of Vera 12.9, Plt Count 280, MPV 9.9, Immature Gran % (Auto) 0.400, Neut % (Auto) 86.6 H, Lymph % (Auto) 8.1 L, [place] % (Auto) 4.8, Eos % (Auto) 0.0, Baso % (Auto) 0.1, Absolute Neuts (auto) 7.7, Absolute Lymphs (auto) 0.72 L, Nucleated RBC % 0, Differential Comment COMMENT 09/16/19 05:00: Sodium 135 L, Potassium 5.5 H, Chloride 109 H, Carbon Dioxide 10.0 L, Anion Gap 16 H, BUN 96 H, Creatinine 5.12 H, Estim Creat Clear Calc 12.08, Est GFR (MDRD) Af Amer 14 L, Est GFR (MDRD) Non-Af 12 L, BUN/Creatinine Ratio 18.8, Glucose 127 H, Calcium 7.7 L, Phosphorus 6.2 H, Magnesium 1.2 L, Total Bilirubin 0.30, AST 33, ALT 42, Alkaline Phosphatase 142 H, Total Protein 6.9, Albumin 2.7 L, Globulin 4.2, Albumin/Globulin Ratio 0.6 L, Lipase 660 H 09/16/19 05:50: POC Glucose 118 H Current Medications Acetaminophen (Tylenol) 650 mg PO Q6H PRN PRN PRN Reason: Pain Score 1-10/Temp > 100.7 F Albuterol Sulfate (Ventolin Aerosols) 2.5 mg INHALATION Q2H PRN PRN PRN Reason: SOB/Wheezing Dextrose (D50w Syringe) 0 gm IV X1 PRN; Protocol PRN Reason: Hypoglycemia Glucagon () 1 mg IM .X1 PRN PRN Reason: Hypoglycemia Heparin Sodium (Porcine) (Heparin Na) 5,000 unit SC Q12 [facility] Last Admin: 09/15/19 22:09 Dose: 5,000 unit Documented by: Sodium Chloride () 250 mls @ 15 mls/hr IV .[id number] PRN PRN Reason: Saline Flush Sodium Chloride () 250 mls @ 15 mls/hr IV .[id number] PRN PRN Reason: Additional IVPB Infusion Ceftriaxone Sodium 2 gm/ (Sodium Chloride) 50 mls @ 100 mls/hr IV Q24 [facility] Last Infusion: 09/15/19 18:31 Dose: Infused Documented by: Pantoprazole Sodium 40 mg/ (Sodium Chloride) 110 mls @ 330 mls/hr IV Q24 [facility] Last Infusion: 09/15/19 18:27 Dose: Infused Documented by: Insulin Human Lispro (Humalog Kwikpen (Bkc)) 0 unit SC Q6 [facility]; Protocol Last Admin: 09/16/19 06:17 Dose: Not Given Documented by: Morphine Sulfate () 2 mg IV Q3H PRN PRN PRN Reason: Pain Score 4-10/10 Nitroglycerin (Nitrostat) 0.4 mg SUBLINGUAL Q5M PRN PRN Reason: CARDIAC/CHEST PAIN Nutritional Formula (Lactose Free) (Glucerna Shake) 120 ml PO TIDCM [facility] Last Admin: 09/15/19 17:18 Dose: Not Given Documented by: Ondansetron HCl (Zofran) 4 mg IV Q8H PRN PRN PRN Reason: NAUSEA/VOMITING Prochlorperazine Edisylate (Compazine Iv) 5 mg IV Q4H PRN PRN PRN Reason: Breakthrough Nausea/Vomiting Sodium Chloride () 10 - 40 ml IV UD PRN PRN Reason: SALINE FLUSH Tamsulosin HCl (Flomax) 0.4 mg PO QHS [facility] Last Admin: 09/15/19 22:09 Dose: 0.4 mg Documented by: Assessment/Plan All Active Problems Acute urinary retention (Acute) Acute pancreatitis (Acute) Bladder outlet obstruction (Acute) Acute kidney injury (Acute) 79-year-old male with urinary retention 1. The patient had urinary retention which was resolved with a Hernandes catheter. The patient is having red bloody urine. The patient is currently having no abdominal pain and repeat labs show that his lipase is decreasing. He is not having any right upper quadrant pain despite cholelithiasis. On the CT scan the patient did not have any stranding around the gallbladder. I believe that the inflammation around his kidneys is causing inflammation of the pancreas. I do not believe the patient is having any gallstone pancreatitis. 2. Okay for diet from my standpoint if not having any procedures per Dr. Thayer. Desean Luo MD Pager: [facility] [address] [place] [address], [address] [place] [phone] Office:
[2019-09-16] MEDS: Sodium Polystyrene Sulfonate 15 GM/60 ML UDC 30 GM PO (10:11)
[2019-09-16] MEDS: Lactated Ringers 1,000 ML 125 ML IV (10:11)
[2019-09-16] MEDS: 0.9% Saline Lock 10 ML Syringe IV (10:12)
[2019-09-16] MEDS: Heparin Injection (Vial) 5,000 UNIT/ML VIAL 5000 UNIT SC (10:25)
--- NOTE | 2019-09-16 10:30 | CASEMGMT ---
RN CM POEM WRITER CM to room to meet with patient for initial transition planning/care coordination assessment. RN BUBBA introduced self and role at [facility]. Pt voices understanding and consents to assessment at this time. Pt resting in bed in no distress at this time. Pt is A/O at this time and answers all questions appropriately. Care providers, pharmacy, and demographics verified/updated at this time. PCP: Dr Drake Specialists: None Preferred Pharmacy: [facility] Retail Insurance: [facility], [facility] Prescription Benefit: Yes Living Will/HPOA: Has both LW and Deja GUTHRIE, who is his son, Gurdeep Paez. Pt aware these are not on file @ [facility] LNOK: , Chanel. 2 sons and 1 daughter. Living Arrangements: Lives @ home w/his in one-story home. 2 steps to enter. Independent w/ADL's/self care. manages most home tasks. Transportation: Pt states drives self and states no transportation concerns at this time. also drives. DME: States has the following DME: built-in shower seat, cane, walker, grab bars, hand-held shower, BIPAP. Pt states no need for further DME at this time. HHC/SNF: No history of either. Has went to OP therapy in the past @ [facility]. Pt wishes to return home and states has no concerns with going home at time of discharge. Pt states he does not think he will need HHC at discharge, that he prefers to do OP therapy and would want to go to [facility]. Pt made aware, that if he does feel like he would want/need HHC at discharge to ask to talk with CM. CM to follow for any further discharge planning/needs. Pt voices no further concerns/needs at this time. Advised pt to ask for CM if any further questions/concerns/needs arise. Voices understanding. PLAN: Home w/OP therapy @ [facility]. Will need script for OP therapy. PT/OT ginnyals pending. Chani ZHANG RN, CM
[2019-09-16 10:55] LABS: Pathologist Review Reviewed
[2019-09-16] MEDS: levoFLOXacin IV 500 MG/100 ML BAG 100 MG IV (11:17)
[2019-09-16] MEDS: Insulin Lispro 100 UNIT/ML INSULN.PEN SC (11:27)
[2019-09-16] MEDS: Glucerna Shake 120 ML LIQUID PO ×2 (11:30→17:10)
[2019-09-16 11:50] LABS: Bedside Glucose 152 mg/dL (70-110)
--- NOTE | 2019-09-16 12:44 | CON.PCM_ITS ---
Consultation - Renal 09/16/19 PCP/ Referring MD: Requesting physician: [] Primary care physician: Dr. Brady Drake MD Reason for Consultation:: ruby - History of Present Illness History of Present Illness: The patient is a 79 year old M [with past medical history as below who presented with a chief complaint of diarrhea for about 1 week prior to admission for which he took Lomotil which resulted into constipation so he had a last bowel movement 3 days prior to admission. He also felt distended and had abdominal pain on the sides mostly radiating to the back. He denies fever chills cough chest pain shortness of breath dysuria hematuria hematochezia melena. He had some increased frequency and urgency with a sensation of incomplete emptying of the bladder. He has a history of chronic bladder incontinence and BPH. He was found to have 2 with moderate to severe bilateral hydronephrosis left more than right due to bladder outlet obstruction. Catheter was placed with return of urine and currently the patient has some gross hematuria and has been seen by urology. His initial creatinine was 5.7 and today is 5.12. - Allergies Allergies: Allergies Penicillins Allergy (Verified 09/15/19 11:16) Hives - Current Medications Current Medications: Current Medications Acetaminophen (Tylenol) 650 mg PO Q6H PRN PRN PRN Reason: Pain Score 1-10/Temp > 100.7 F Albuterol Sulfate (Ventolin Aerosols) 2.5 mg INHALATION Q2H PRN PRN PRN Reason: SOB/Wheezing Dextrose (D50w Syringe) 0 gm IV X1 PRN; Protocol PRN Reason: Hypoglycemia Glucagon () 1 mg IM .X1 PRN PRN Reason: Hypoglycemia Heparin Sodium (Porcine) (Heparin Na) 5,000 unit SC Q12 [facility] Last Admin: 09/16/19 10:25 Dose: 5,000 unit Documented by: Sodium Chloride () 250 mls @ 15 mls/hr IV .[id number] PRN PRN Reason: Saline Flush Sodium Chloride () 250 mls @ 15 mls/hr IV .[id number] PRN PRN Reason: Additional IVPB Infusion Pantoprazole Sodium 40 mg/ (Sodium Chloride) 110 mls @ 330 mls/hr IV Q24 [facility] Last Admin: 09/16/19 10:19 Dose: 330 mls/hr Documented by: Lactated Ringer's () 1,000 mls @ 125 mls/hr IV .Q8H [facility] Last Admin: 09/16/19 10:11 Dose: 125 mls/hr Documented by: Levofloxacin (Levaquin Iv) 500 mg in 100 mls @ 100 mls/hr IV Q48 [facility] Last Admin: 09/16/19 11:17 Dose: 100 mls/hr Documented by: Insulin Human Lispro (Humalog Kwikpen (Bkc)) 0 unit SC ACHS [facility]; Protocol Last Admin: 09/16/19 11:27 Dose: 2 units Documented by: Morphine Sulfate () 2 mg IV Q3H PRN PRN PRN Reason: Pain Score 4-10/10 Nitroglycerin (Nitrostat) 0.4 mg SUBLINGUAL Q5M PRN PRN Reason: CARDIAC/CHEST PAIN Nutritional Formula (Lactose Free) (Glucerna Shake) 120 ml PO TIDCM [facility] Last Admin: 09/16/19 11:30 Dose: 120 ml Documented by: Ondansetron HCl (Zofran) 4 mg IV Q8H PRN PRN PRN Reason: NAUSEA/VOMITING Prochlorperazine Edisylate (Compazine Iv) 5 mg IV Q4H PRN PRN PRN Reason: Breakthrough Nausea/Vomiting Sodium Chloride () 10 - 40 ml IV UD PRN PRN Reason: SALINE FLUSH Last Admin: 09/16/19 10:12 Dose: 10 ml Documented by: Tamsulosin HCl (Flomax) 0.4 mg PO QHS [facility] Last Admin: 09/15/19 22:09 Dose: 0.4 mg Documented by: - 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) BPH (benign prostatic hyperplasia) (Chronic) Bilateral hydronephrosis GOLDEN treated with BiPAP (Chronic) CVA (cerebral vascular accident) (Chronic) Multiple thyroid nodules (Chronic) Periodic limb movement disorder (Chronic) PAF (paroxysmal atrial fibrillation) (Chronic) - Past Surgical History Surgical History: no surgical history - Social History Smoking Status: Former smoker Review of Systems Eyes: Reports: - - Review of systems is otherwise negative unless noted in HPI Patient Problems: Active and Suspected Problems Acute urinary retention (Acute) Acute pancreatitis (Acute) Bladder outlet obstruction (Acute) Acute kidney injury (Acute) - Physical Exam Vitals/I&O's: Vital Signs Temp Pulse Resp BP Pulse Ox 98.3 F 78 18 96/41 L 96 09/16/19 10:05 09/16/19 10:05 09/16/19 10:05 09/16/19 10:05 09/16/19 10:05 Oxygen Delivery Method Room Air Weight: 95.5 kg Body Mass Index (BMI) 30.2 Intake and Output for Last 24 Hours 09/14/19 09/15/19 09/16/19 23:59 23:59 23:59 Intake Total 1070.41 / 1070.41 1000 / 1000 Output Total 3050 / 3050 1000 / 1000 Balance -1978.59 / -1978.59 0 / 0 General: Alert, Cooperative HEENT: Atraumatic, Normocephalic Oral: Moist Mucosa Neck: Supple, Trachea Midline Lungs: Clear to auscultation, Normal air movement Cardiovascular: Regular rate, Regular Rhythm, Normal S1, Normal S2 Abdomen: Bowel Sounds Present, Soft Extremities: No edema Laboratory Results 09/15/19 11:20: Differential Comment COMMENT, Diff Path Review Reviewed 09/15/19 12:25: Urine Color Yellow, Urine Clarity Sl. Cloudy, Urine pH 6.0, Ur Specific [place] 1.010, Urine Protein 30 H, Urine Glucose (UA) Normal, Urine Ketones Negative, Urine Occult Blood 25 H, Urine Nitrite Negative, Urine Bilirubin Negative, Urine Urobilinogen Normal, Ur Leukocyte Esterase Negative, Urine RBC 0-5 SEEN, Urine WBC 0 SEEN, Ur Squamous Epith Cells 0 SEEN, Urine Bacteria 1+, Urine Mucus 0 SEEN 09/15/19 15:57: Troponin I 0.147 H 09/15/19 15:57: GGT 185 H 09/15/19 18:10: POC Glucose 98 09/15/19 18:40: Troponin I 0.134 H 09/15/19 23:53: POC Glucose 120 H 09/16/19 05:00: WBC 8.9, RBC 3.28 L, Hgb 10.0 L, Hct 30.4 L, MCV 92.7, MCH 30.5, MCHC 32.9, RDW Std Deviation 43.4, RDW Coeff of Vera 12.9, Plt Count 280, MPV 9.9, Immature Gran % (Auto) 0.400, Neut % (Auto) 86.6 H, Lymph % (Auto) 8.1 L, [place] % (Auto) 4.8, Eos % (Auto) 0.0, Baso % (Auto) 0.1, Absolute Neuts (auto) 7.7, Absolute Lymphs (auto) 0.72 L, Nucleated RBC % 0, Differential Comment COMMENT 09/16/19 05:00: Sodium 135 L, Potassium 5.5 H, Chloride 109 H, Carbon Dioxide 10.0 L, Anion Gap 16 H, BUN 96 H, Creatinine 5.12 H, Estim Creat Clear Calc 12.08, Est GFR (MDRD) Af Amer 14 L, Est GFR (MDRD) Non-Af 12 L, BUN/Creatinine Ratio 18.8, Glucose 127 H, Calcium 7.7 L, Phosphorus 6.2 H, Magnesium 1.2 L, Total Bilirubin 0.30, AST 33, ALT 42, Alkaline Phosphatase 142 H, Total Protein 6.9, Albumin 2.7 L, Globulin 4.2, Albumin/Globulin Ratio 0.6 L, Lipase 660 H 09/16/19 05:50: POC Glucose 118 H 09/16/19 11:27: POC Glucose 152 H Current Medications Acetaminophen (Tylenol) 650 mg PO Q6H PRN PRN PRN Reason: Pain Score 1-10/Temp > 100.7 F Albuterol Sulfate (Ventolin Aerosols) 2.5 mg INHALATION Q2H PRN PRN PRN Reason: SOB/Wheezing Dextrose (D50w Syringe) 0 gm IV X1 PRN; Protocol PRN Reason: Hypoglycemia Glucagon () 1 mg IM .X1 PRN PRN Reason: Hypoglycemia Heparin Sodium (Porcine) (Heparin Na) 5,000 unit SC Q12 [facility] Last Admin: 09/16/19 10:25 Dose: 5,000 unit Documented by: Sodium Chloride () 250 mls @ 15 mls/hr IV .[id number] PRN PRN Reason: Saline Flush Sodium Chloride () 250 mls @ 15 mls/hr IV .[id number] PRN PRN Reason: Additional IVPB Infusion Pantoprazole Sodium 40 mg/ (Sodium Chloride) 110 mls @ 330 mls/hr IV Q24 [facility] Last Admin: 09/16/19 10:19 Dose: 330 mls/hr Documented by: Lactated Ringer's () 1,000 mls @ 125 mls/hr IV .Q8H [facility] Last Admin: 09/16/19 10:11 Dose: 125 mls/hr Documented by: Levofloxacin (Levaquin Iv) 500 mg in 100 mls @ 100 mls/hr IV Q48 [facility] Last Admin: 09/16/19 11:17 Dose: 100 mls/hr Documented by: Insulin Human Lispro (Humalog Kwikpen (Bkc)) 0 unit SC ACHS [facility]; Protocol Last Admin: 09/16/19 11:27 Dose: 2 units Documented by: Morphine Sulfate () 2 mg IV Q3H PRN PRN PRN Reason: Pain Score 4-10/10 Nitroglycerin (Nitrostat) 0.4 mg SUBLINGUAL Q5M PRN PRN Reason: CARDIAC/CHEST PAIN Nutritional Formula (Lactose Free) (Glucerna Shake) 120 ml PO TIDCM [facility] Last Admin: 09/16/19 11:30 Dose: 120 ml Documented by: Ondansetron HCl (Zofran) 4 mg IV Q8H PRN PRN PRN Reason: NAUSEA/VOMITING Prochlorperazine Edisylate (Compazine Iv) 5 mg IV Q4H PRN PRN PRN Reason: Breakthrough Nausea/Vomiting Sodium Chloride () 10 - 40 ml IV UD PRN PRN Reason: SALINE FLUSH Last Admin: 09/16/19 10:12 Dose: 10 ml Documented by: Tamsulosin HCl (Flomax) 0.4 mg PO QHS [facility] Last Admin: 09/15/19 22:09 Dose: 0.4 mg Documented by: Assessment/Plan All Active Problems Acute urinary retention (Acute) Acute pancreatitis (Acute) Bladder outlet obstruction (Acute) Acute kidney injury (Acute) RUBY likely secondary to bilateral obstructive uropathy Hyperkalemia Metabolic acidosis\ Hyperphosphatemia Bilateral hydronephrosis with bladder outlet obstruction status post Hernandes insertion The patient received Kayexalate 30 g today. Stop LR changed to IV fluids with bicarb for now reevaluate tomorrow. Creatinine is 5.1 from 5.7 improving after relief of obstruction. Avoid nephrotoxins and hypotension Urology is seeing the patient further work-up as indicated by clinical course. Monitor phos binders prn should improve with improvement in renal failure. The above assessment and plan was discussed at length with the patient who voiced understanding and agrees to proceed with the plan as outlined above. He was given the opportunity to ask questions and stated that those were answered to his satisfaction. Thank you very much for allowing me to participate in the care of this patient. Please do not hesitate to call if you have any questions or concerns.
[2019-09-16] MEDS: Sodium Bicarbonate 75 MEQ in 0.45% Normal Saline 1,000 ML 100 ML IV (14:26)
--- NOTE | 2019-09-16 16:37 | PCM.PN.HOSP ---
Patient Problems: Active and Suspected Problems Acute urinary retention (Acute) Acute pancreatitis (Acute) Bladder outlet obstruction (Acute) Acute kidney injury (Acute) Reason for Visit: Acute radiation of urine with bladder outlet restriction with hematuria. Vitals/I&O's: Vital Signs Temp Pulse Resp BP Pulse Ox 97.6 F L 82 16 103/47 L 98 09/16/19 14:40 09/16/19 14:40 09/16/19 14:40 09/16/19 14:40 09/16/19 14:40 Oxygen Delivery Method Room Air Weight: 210 lb 8.663 oz Body Mass Index (BMI) 30.2 Intake and Output for Last 24 Hours 09/14/19 09/15/19 09/16/19 23:59 23:59 23:59 Intake Total 1070.41 / 1070.41 2143.33 / 2143.33 Output Total 3050 / 3050 2250 / 2250 Balance -1979.59 / -1979.59 -106.67 / -106.67 General: Alert, Oriented x3, Cooperative HEENT: Atraumatic, PERRLA, EOMI, Normocephalic Neck: Supple, No JVD, Negative Carotid Bruits Lungs: Clear to auscultation, No rhonchi, No wheeze, No rales, Diminished Cardiovascular: Regular rate, Regular Rhythm, Normal S1, Normal S2, No murmurs Abdomen: Bowel Sounds Present, Soft, Non Tender, Distended - Mild gaseous distention but much improved since yesterday, - - Patient has Hernandes catheter. Mild hematuria. No suprapubic tenderness. Mild left renal angle tenderness Extremities: No edema, Capillary Refill Less than 3 Seconds Skin: No rashes, No breakdown Musculoskeletal: No Tenderness to Palpation of Joints or Extremities, Arthritic Changes Neurological: Cranial nerves II-XII grossly intact Psych/Mental Status: Normal Affect, Appropriate Laboratory Results 09/15/19 11:20: Diff Path Review Reviewed 09/15/19 15:57: GGT 185 H 09/15/19 18:10: POC Glucose 98 09/15/19 18:40: Troponin I 0.134 H 09/15/19 23:53: POC Glucose 120 H 09/16/19 05:00: WBC 8.9, RBC 3.28 L, Hgb 10.0 L, Hct 30.4 L, MCV 92.7, MCH 30.5, MCHC 32.9, RDW Std Deviation 43.4, RDW Coeff of Vera 12.9, Plt Count 280, MPV 9.9, Immature Gran % (Auto) 0.400, Neut % (Auto) 86.6 H, Lymph % (Auto) 8.1 L, [place] % (Auto) 4.8, Eos % (Auto) 0.0, Baso % (Auto) 0.1, Absolute Neuts (auto) 7.7, Absolute Lymphs (auto) 0.72 L, Nucleated RBC % 0, Differential Comment COMMENT 09/16/19 05:00: Sodium 135 L, Potassium 5.5 H, Chloride 109 H, Carbon Dioxide 10.0 L, Anion Gap 16 H, BUN 96 H, Creatinine 5.12 H, Estim Creat Clear Calc 12.08, Est GFR (MDRD) Af Amer 14 L, Est GFR (MDRD) Non-Af 12 L, BUN/Creatinine Ratio 18.8, Glucose 127 H, Calcium 7.7 L, Phosphorus 6.2 H, Magnesium 1.2 L, Total Bilirubin 0.30, AST 33, ALT 42, Alkaline Phosphatase 142 H, Total Protein 6.9, Albumin 2.7 L, Globulin 4.2, Albumin/Globulin Ratio 0.6 L, Lipase 660 H 09/16/19 05:50: POC Glucose 118 H 09/16/19 11:27: POC Glucose 152 H Current Medications Acetaminophen (Tylenol) 650 mg PO Q6H PRN PRN PRN Reason: Pain Score 1-10/Temp > 100.7 F Albuterol Sulfate (Ventolin Aerosols) 2.5 mg INHALATION Q2H PRN PRN PRN Reason: SOB/Wheezing Dextrose (D50w Syringe) 0 gm IV X1 PRN; Protocol PRN Reason: Hypoglycemia Glucagon () 1 mg IM .X1 PRN PRN Reason: Hypoglycemia Heparin Sodium (Porcine) (Heparin Na) 5,000 unit SC Q12 [facility] Last Admin: 09/16/19 10:25 Dose: 5,000 unit Documented by: Sodium Chloride () 250 mls @ 15 mls/hr IV .[id number] PRN PRN Reason: Saline Flush Sodium Chloride () 250 mls @ 15 mls/hr IV .[id number] PRN PRN Reason: Additional IVPB Infusion Pantoprazole Sodium 40 mg/ (Sodium Chloride) 110 mls @ 330 mls/hr IV Q24 [facility] Last Infusion: 09/16/19 10:39 Dose: Infused Documented by: Levofloxacin (Levaquin Iv) 500 mg in 100 mls @ 100 mls/hr IV Q48 [facility] Last Infusion: 09/16/19 12:17 Dose: Infused Documented by: Sodium Bicarbonate 75 meq/ (Sodium Chloride) 1,075 mls @ 100 mls/hr IV .[id number] [facility] Last Admin: 09/16/19 14:26 Dose: 100 mls/hr Documented by: Insulin Human Lispro (Humalog Kwikpen (Bkc)) 0 unit SC ACHS [facility]; Protocol Last Admin: 09/16/19 11:27 Dose: 2 units Documented by: Morphine Sulfate () 2 mg IV Q3H PRN PRN PRN Reason: Pain Score 4-10/10 Nitroglycerin (Nitrostat) 0.4 mg SUBLINGUAL Q5M PRN PRN Reason: CARDIAC/CHEST PAIN Nutritional Formula (Lactose Free) (Glucerna Shake) 120 ml PO TIDCM [facility] Last Admin: 09/16/19 11:30 Dose: 120 ml Documented by: Ondansetron HCl (Zofran) 4 mg IV Q8H PRN PRN PRN Reason: NAUSEA/VOMITING Prochlorperazine Edisylate (Compazine Iv) 5 mg IV Q4H PRN PRN PRN Reason: Breakthrough Nausea/Vomiting Sodium Chloride () 10 - 40 ml IV UD PRN PRN Reason: SALINE FLUSH Last Admin: 09/16/19 10:12 Dose: 10 ml Documented by: Tamsulosin HCl (Flomax) 0.4 mg PO QHS [facility] Last Admin: 09/15/19 22:09 Dose: 0.4 mg Documented by: STROKE Vital Signs/Narrative: Vital Signs Temp Pulse Resp BP Pulse Ox 09/16/19 14:40 97.6 F L 82 16 103/47 L 98 Medical Necessity - Tobacco Use Smoking Status: Former smoker Assessment/Plan All Active Problems Acute urinary retention (Acute) Acute pancreatitis (Acute) Bladder outlet obstruction (Acute) Acute kidney injury (Acute) The patient is a 79 year old M with multiple comorbidities as listed above for abdominal distention and abdominal pain. Patient has increased frequency and urgency with incomplete emptying of bladder. Has chronic bladder incontinence and BPH. Denies burning micturition or fever. In ED, vitals are stable. Initial labs in ER shows BUN/creatinine 98/5.72, leukocytosis with left shift. Sodium 130, K5.2, bicarb 16 with anion gap 15. UA 0 WBC, negative nitrite and leukocyte esterase. CT abdomen and pelvis without contrast was done. Reported moderate to severe bilateral hydronephrosis left more than right due to bladder outlet obstruction. 1. Acute kidney injury on CKD stage III secondary to bladder outlet obstruction/BPH/neurogenic bladder and bilateral pyelonephritis predominantly left-sided: Patient is being admitted in PCU. IV fluid normal saline 125 mils per hour. Monitor intake and output, electrolytes and kidney function. Patient had Hernandes catheter inserted in the ED. 1000 mL clear urine came out spontaneously. Urologist Dr. Couch is been consulted from ER physician. CT reported mild peritoneal fat stranding bilaterally more prominent left side suggesting pyonephritis. UA is bland. 09/15: Ceftriaxone discontinued and started on Levaquin for more effective clearance of infection. Medications dose adjusted as per creatinine clearance. 2. Acute pancreatitis, exact etiology unclear: Lipase is elevated. CT abdomen shows multiple gallstones probably asymptomatic as patient does not have right upper quadrant or epigastric tenderness. Discussed with the surgeon. Patient started on diet. Seen by surgeon and it seems as pancreatitis probably from contiguous spread from left pyonephritis. Asymptomatic cholelithiasis. No inflammation around the gallbladder region. 3. Electrolyte abnormality: Hyponatremia and hypokalemia most likely secondary to hypovolemia/volume depletion: IV fluid normal saline. Repeat electrolytes. EKG shows A. fib with PVCs at 82 bpm. Hyperkalemia, mild hyponatremia, high anion gap metabolic acidosis secondary to acute kidney injury: Scheduling Analyst consulted. IV fluid changed to bicarb drip. Kayexalate given. 4. Paroxysmal A. fib on heart rate is controlled. Hold Eliquis and other antithrombotic/antiplatelet agent secondary to hematuria. Mild troponin elevation from 0.129, 0.147 and 0.134 most probably from demand ischemia, from acute kidney injury and possible proximal A. fib. Started on metoprolol 12.5 mg twice daily. 2D echo is ordered. Patient has denies history of coronary artery disease/OR or CHF. 5. Type 2 diabetes mellitus with diabetic nephropathy: Accu-Chek SHS cover with blood sliding scale. 6. 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 Other comorbidities include hypertension, dyslipidemia, obstructive sleep apnea on BiPAP, periodic limb movement disorder: Patient abdominal distention may be partially from BiPAP. Hold on BiPAP for few days until abdominal distention resolved. Multiple comorbidities complicates the present care and expect difficult and delay recovery DVT prophylaxis: Heparin discontinued because of hematuria. Bilateral SCDs. Total time of the visit including total time spent in counseling or coordination of care, (more than 50% of the total time, spent in obtaining medical information from nurses and other ancillary care providers), discussion with different consultants, review of labs and imaging is 30 minutes Living will/advanced directive/end of life care: Patient does have living will or advanced directive. After discussion of procedures involved with full code, DNR CC arrest and DNR CC, the patient opted for DNR-CC Arrest Patient does not want artificial life support including intubation, tube feed, ventilator and/chest compression, central venous catheter, vasopressor and DC shock if needed DNR CC arrest. Total time spent in [id number] encounter in discussion of advanced directive 16 minutes. Clinical Impression(s) from Imaging Studies Abdomen/Pelvis CT 09/15/19 12:03 IMPRESSION: There is moderate to severe by the hydronephrosis is more prominent on the left side most likely due to urinary bladder outlet obstruction. There is peritoneal fat stranding bilaterally more prominent on the left side suggesting pyelonephritis. Cholelithiasis. Inpatient E&M: [id number] [facility] Hosp L3
[2019-09-16] MEDS: Metoprolol Tartrate 25 MG Tablet 12.5 MG PO (17:18)
[2019-09-16 18:10] LABS: Bedside Glucose 91 mg/dL (70-110)
[2019-09-16] MEDS: Tamsulosin HCl 0.4 MG Capsule PO (20:39)
[2019-09-16 22:00] LABS: Bedside Glucose 119 mg/dL (70-110)
[2019-09-17] VITALS (15 sets, daily range): BP systolic 70–122; BP diastolic 40–68; PULSE 58–90; RESP 16–18; TEMP 36.4–37.1; O2SAT 96–100
[2019-09-17] MEDS: Sodium Bicarbonate 75 MEQ in 0.45% Normal Saline 1,000 ML 100 ML IV ×2 (03:02→15:38)
[2019-09-17 05:42] LABS: Absolute Lymphocyte Count 2.02 X10^3/uL (0.83-4.51); Absolute Neutrophil Count 5.4 X10^3/uL (2.0-7.7); Basophil# 0.01 X10^3/uL; Basophil% 0.1 % (0-1); Eosinophil# 0.08 X10^3/uL; Eosinophils% 0.9 % (0-5); Hematocrit 24.9 % (40-54); Hemoglobin 8.2 g/dL (13.0-16.5); Lymphocyte # 2.02 X10^3/ul (4.0); Lymphocyte % 23.6 % (19-41); Mean Corp Hgb Conc 32.9 g/dL (32-36); Mean Corpuscular Volume 91.2 fL (80-94); Mean Platelet Vol. 9.6 fl (6.2-12.0); Monocyte# 1.02 X10^3/uL; Monocyte% 11.9 % (0-10); NRBC Flagged by Analyzer 0 % (0-5); Neutrophil # 5.39 X10^3/uL (2.7-7.7); Neutrophil % 63.1 % (47-70); Platelet Count 279 K/mm3 (150-450); RBC Distribution Width CV 12.9 % (11.6-14.6); RBC Distribution Width SD 42.3 fl (35.1-43.9); Red Blood Count 2.73 M/mm3 (4.6-6.2); White Blood Count 8.6 K/mm3 (4.4-11.0)
--- NOTE | 2019-09-17 05:55 | ECHOD_ITS ---
Version 2 Reason For Study: elevated troponins, RUBY, PAFib. Procedure This was a 2D Doppler, Color Flow transthoracic echocardiogram. Exam performed portable in ICU/CCU. Left Ventricle Normal LV size. The estimated ejection fraction is 60 %. No evidence for diastolic dysfunction. No regional wall motion abnormalities noted. Right Ventricle Normal RV size. Normal systolic function. Atria The left atrium is mildly enlarged. Normal right atrium. No doppler evidence for ASD. Mitral Valve There is no mitral valve stenosis. No mitral valve insufficiency. Tricuspid Valve There is no tricuspid stenosis. Mild tricuspid valve insufficiency. Pulmonary artery systolic pressure is 40 mmHg. Aortic Valve Trisinus/trileaflet aortic valve. Aortic sclerosis, no stenosis. There is no aortic stenosis. No aortic valve insufficiency. Pulmonic Valve There is no pulmonic valvular stenosis. No pulmonic valve insufficiency. Great Vessels Normal aortic root. Pericardium/Pleural No pericardial effusion. MMode/2D Measurements & Calculations LVIDd: 5.6 cm IVSd: 1.2 cm Ao root diam: 3.3 cm LVIDs: 4.4 cm LVPWd: 1.1 cm RVDd: 4.2 cm FS: 22.4 % LAV(MOD-bp): 123.4 ml LA A4 area: 32.3 cm2 LA dimension(2D): 4.6 cm LAV(MOD-bp) Indexed: 57.9 ml/m2 LAV(MOD-sp2): 112.1 ml LAV(MOD-sp4): 118.8 ml RA A4 area: 29.0 cm2 Doppler Measurements & Calculations MV E max eliu: 86.7 cm/sec Ao V2 max: 152.8 cm/sec LV V1 max: 97.0 cm/sec Ao max P.3 mmHg LV V1 max P.8 mmHg Ao V2 mean: 114.3 cm/sec LV V1 mean P.1 mmHg Ao mean P.6 mmHg LV V1 mean: 69.3 cm/sec Ao V2 VTI: 31.2 cm LV V1 VTI: 17.4 cm MR max eliu: 403.8 cm/sec PA V2 max: 107.3 cm/sec TR max eliu: 278.2 cm/sec MR max P.2 mmHg TR max P.0 mmHg Interpretation Summary The estimated ejection fraction is 60 %. No evidence for diastolic dysfunction. Mild tricuspid valve insufficiency. Pulmonary artery systolic pressure is 40 mmHg. The left atrium is mildly enlarged. Ordering Physician: Pankaj Stover Referring Physician: Brady Drake Performed By: Hortensia Willingham, [place]ASIA, RVT
[2019-09-17 06:11] LABS: ALB/GLOB Ratio 0.6 RATIO (0.9-2.4); AST(SGOT) 36 U/L (15-37); Alanine Aminotransfer ALT/SGPT 49 U/L (16-61); Albumin, Serum 2.2 g/dL (3.2-5.0); Alkaline Phosphatase 124 U/L (45-117); Anion Gap 12 (5-15); BUN 88 mg/dL (7-18); BUN/Creat Ratio 21.9 RATIO (10-20); Calcium,Total 6.6 mg/dL (8.5-10.1); Chloride 109 mmol/L (98-107); Creatinine, Serum 4.02 mg/dL (0.70-1.30); EST Glomerular Filtration Rate 15 mL/min (>60); Est Glom Filt Rate - Afr Amer 19 mL/min (>60); Estimated Creatinine Clearance 15.38 ml/min; Globulin 3.6 g/dL (2.2-4.2); Glucose 115 mg/dL (74-106); Potassium 3.8 mmol/L (3.5-5.1); Protein, Total 5.8 g/dL (6.4-8.2); Sodium Level 136 mmol/L (136-145)
[2019-09-17 06:50] LABS: Bedside Glucose 110 mg/dL (70-110)
[2019-09-17] MEDS: Glucerna Shake 120 ML LIQUID PO ×2 (08:03→12:00)
--- NOTE | 2019-09-17 09:35 | PN.RENAL_ITS ---
Patient Problems: Active and Suspected Problems Acute urinary retention (Acute) Acute pancreatitis (Acute) Bladder outlet obstruction (Acute) Acute kidney injury (Acute) Subjective: no sob/cp no c/o - Physical Exam Vitals/I&O's: Vital Signs Temp Pulse Resp BP Pulse Ox 97.6 F L 67 18 100/40 L 98 09/17/19 07:49 09/17/19 07:49 09/17/19 07:49 09/17/19 07:49 09/17/19 07:49 Oxygen Delivery Method Room Air Weight: 95.5 kg Body Mass Index (BMI) 30.2 Intake and Output for Last 24 Hours 09/15/19 09/16/19 09/17/19 23:59 23:59 23:59 Intake Total 1070.41 / 1070.41 3626.66 / 3626.66 2031.67 / 203.67 Output Total 3050 / 3050 3475 / 3475 1150 / 1150 Balance -1979.59 / -1978.59 151.66 / 151.66 881.67 / 881.67 General: Alert, Cooperative HEENT: Atraumatic, Normocephalic Oral: Moist Mucosa Neck: Supple, Trachea Midline Lungs: Clear to auscultation, Normal air movement Cardiovascular: Regular rate, Regular Rhythm, Normal S1, Normal S2 Abdomen: Bowel Sounds Present, Soft, Non Tender Extremities: No clubbing, No cyanosis Laboratory Results 09/15/19 11:20: Diff Path Review Reviewed 09/16/19 11:27: POC Glucose 152 H 09/16/19 17:03: POC Glucose 91 09/16/19 21:28: POC Glucose 119 H 09/17/19 05:22: WBC 8.6, RBC 2.73 L, Hgb 8.2 L, Hct 24.9 L, MCV 91.2, MCH 30.0, MCHC 32.9, RDW Std Deviation 42.3, RDW Coeff of Vera 12.9, Plt Count 279, MPV 9.6, Immature Gran % (Auto) 0.400, Neut % (Auto) 63.1, Lymph % (Auto) 23.6, [place] % (Auto) 11.9 H, Eos % (Auto) 0.9, Baso % (Auto) 0.1, Absolute Neuts (auto) 5.4, Absolute Lymphs (auto) 2.02, Nucleated RBC % 0 09/17/19 05:22: Sodium 136, Potassium 3.8, Chloride 109 H, Carbon Dioxide 15.0 L , Anion Gap 12, BUN 88 H, Creatinine 4.02 H, Estim Creat Clear Calc 15.38, Est GFR (MDRD) Af Amer 19 L, Est GFR (MDRD) Non-Af 15 L, BUN/Creatinine Ratio 21.9 H , Glucose 115 H, Calcium 6.6 L, Total Bilirubin 0.30, AST 36, ALT 49, Alkaline Phosphatase 124 H, Total Protein 5.8 L, Albumin 2.2 L, Globulin 3.6, Albumin/Globulin Ratio 0.6 L 09/17/19 06:22: POC Glucose 110 Current Medications Acetaminophen (Tylenol) 650 mg PO Q6H PRN PRN PRN Reason: Pain Score 1-10/Temp > 100.7 F Albuterol Sulfate (Ventolin Aerosols) 2.5 mg INHALATION Q2H PRN PRN PRN Reason: SOB/Wheezing Dextrose (D50w Syringe) 0 gm IV X1 PRN; Protocol PRN Reason: Hypoglycemia Glucagon () 1 mg IM .X1 PRN PRN Reason: Hypoglycemia Sodium Chloride () 250 mls @ 15 mls/hr IV .[id number] PRN PRN Reason: Saline Flush Sodium Chloride () 250 mls @ 15 mls/hr IV .[id number] PRN PRN Reason: Additional IVPB Infusion Pantoprazole Sodium 40 mg/ (Sodium Chloride) 110 mls @ 330 mls/hr IV Q24 [facility] Last Infusion: 09/16/19 10:39 Dose: Infused Documented by: Levofloxacin (Levaquin Iv) 500 mg in 100 mls @ 100 mls/hr IV Q48 [facility] Last Infusion: 09/16/19 12:17 Dose: Infused Documented by: Sodium Bicarbonate 75 meq/ (Sodium Chloride) 1,075 mls @ 100 mls/hr IV .[id number] [facility] Last Infusion: 09/17/19 04:58 Dose: 100 mls/hr Documented by: Insulin Human Lispro (Humalog Kwikpen (Bkc)) 0 unit SC ACHS [facility]; Protocol Last Admin: 09/17/19 06:33 Dose: Not Given Documented by: Metoprolol Tartrate (Lopressor (Beta Jozef)) 12.5 mg PO BID [facility] Last Admin: 09/16/19 20:40 Dose: Not Given Documented by: Morphine Sulfate () 2 mg IV Q3H PRN PRN PRN Reason: Pain Score 4-10/10 Nitroglycerin (Nitrostat) 0.4 mg SUBLINGUAL Q5M PRN PRN Reason: CARDIAC/CHEST PAIN Nutritional Formula (Lactose Free) (Glucerna Shake) 120 ml PO TIDCM [facility] Last Admin: 09/17/19 08:03 Dose: 120 ml Documented by: Ondansetron HCl (Zofran) 4 mg IV Q8H PRN PRN PRN Reason: NAUSEA/VOMITING Prochlorperazine Edisylate (Compazine Iv) 5 mg IV Q4H PRN PRN PRN Reason: Breakthrough Nausea/Vomiting Sodium Chloride () 10 - 40 ml IV UD PRN PRN Reason: SALINE FLUSH Last Admin: 09/16/19 10:12 Dose: 10 ml Documented by: Tamsulosin HCl (Flomax) 0.4 mg PO QHS [facility] Last Admin: 09/16/19 20:39 Dose: 0.4 mg Documented by: Medical Necessity - Tobacco Use Smoking Status: Former smoker Assessment/Plan All Active Problems Acute urinary retention (Acute) Acute pancreatitis (Acute) Bladder outlet obstruction (Acute) Acute kidney injury (Acute) RUBY likely secondary to bilateral obstructive uropathy Hyperkalemia resolved Metabolic acidosis Hyperphosphatemia Bilateral hydronephrosis with bladder outlet obstruction status post Hernandes insertion Scr 4.02 improving Potassium is normal the acidosis is improving continue IV fluids with bicarb Avoid nephrotoxins and hypotension Urology is seeing the patient Monitor phos binders prn should improve with improvement in renal failure check phos mg in am T
[2019-09-17] MEDS: Metoprolol Tartrate 25 MG Tablet 12.5 MG PO (09:52)
[2019-09-17] MEDS: 0.9% Saline Lock 10 ML Syringe IV ×2 (09:59→19:08)
--- NOTE | 2019-09-17 10:58 | CASEMGMT ---
Addendum entered by Davin Hopkins 09/17/19 11:59: Call received back from Miryam @ [facility]. She states they are able to accept pt. Original Note: VON MAC NOTE: Reviewed PT/OT evals. Pt only able to ambulate 20 . Pt will also most likely be discharged home w/Hernandes catheter. VON MAC to room to discuss discharge planning. Pt states that he would like [facility], especially if he is discharged home w/a Hernandes catheter, instead of going to OP therapy. Pt given list of [facility] agencies. Pt prefers [facility]. Call placed to Miryam @ [facility] and message left with referral. Order placed for [facility]: SN, and PT/OT eval and treat. Chani ZHANG RN CM
[2019-09-17 12:45] LABS: Bedside Glucose 112 mg/dL (70-110)
--- NOTE | 2019-09-17 15:27 | CON.PCM_ITS ---
Problem List (1) BPH (benign prostatic hyperplasia) Status: Chronic Qualifiers: Lower urinary tract symptom detail: urinary retention Qualified Code(s): N40.1 - Benign prostatic hyperplasia with lower urinary tract symptoms; R33.8 - Other retention of urine Comment: Bilateral hydronephrosis - Consult Date of Consult: 09/17/19 - Reason for Consult Follow-up to consultation 79-year-old male presented bilateral hydronephrosis and obstruction and acute renal failure fortunately his kidney function is getting better his creatinine is down to 4 urine output is decent. Urine is clearing with no more blood. Slightly hypotensive overnight. He denies any chest pain or shortness of breath. Does have a history of atrial fibrillation states he was seen chamfering machine operator from [facility] and had a negative stress test about a year ago or so. He did have elevated troponins on admission to the hospital. I would need cardiac clearance before I can do surgery and then plan to do a TURP at some point either during this admission or if he gets discharged I can see him in the office to set up as an outpatient. He continues to get better continue with catheter drainage I will follow along can you call for any questions.
--- NOTE | 2019-09-17 15:59 | PN_ITS ---
Patient Problems: Active and Suspected Problems Acute urinary retention (Acute) Acute pancreatitis (Acute) Bladder outlet obstruction (Acute) Acute kidney injury (Acute) Reason for Visit: Follow-up acute kidney injury secondary to bilateral hydronephrosis and pyelonephritis. Increased high anion gap metabolic acidosis with hyperkalemia and hyponatremia Objective: Seen and examined. No fever or chills. Patient had hypotension briefly in special order jeweler hours today, lowest 76/42 which went up to maximum systolic 100/40 with IV fluid bolus total of 2 L by nighttime hospitalist. Heart rate 58. Blood pressure 100/49 dropped to 70/40 in afternoon. Discussed with the nurse. He had physical therapy, walking around nursing station and he did not complain of dizziness lightheadedness. Patient does not have any hypotensive symptoms as per nursing staff. Advised to recheck the blood pressure. Metoprolol discontinued. On physical exam: General: Alert, Oriented x3, Cooperative HEENT: Atraumatic, PERRLA, EOMI, Normocephalic Neck: Supple, No JVD, Negative Carotid Bruits Lungs: Clear to auscultation, No rhonchi, No wheeze, No rales, Diminished Cardiovascular: Normal S1, Normal S2, No murmurs. A. fib with bradycardia on dining services director, heart rate about 60 per 100. Abdomen: Bowel Sounds Present, Soft, Non Tender, non-distention : Patient has Hernandes catheter. Hematuria resolved. Urine is clear no renal angle tenderness. Extremities: No edema, Capillary Refill Less than 3 Seconds Skin: No rashes, No breakdown Musculoskeletal: No Tenderness to Palpation of Joints or Extremities, Arthritic Changes Neurological: Cranial nerves II-XII grossly intact Psych/Mental Status: Normal Affect, Appropriate Vitals/I&O's: Vital Signs Temp Pulse Resp BP Pulse Ox 97.6 F L 58 L 18 70/40 L 98 09/17/19 12:30 09/17/19 12:30 09/17/19 12:30 09/17/19 12:30 09/17/19 12:30 Oxygen Delivery Method Room Air Weight: 210 lb 8.663 oz Body Mass Index (BMI) 30.2 Intake and Output for Last 24 Hours 09/15/19 09/16/19 09/17/19 23:59 23:59 23:59 Intake Total 1070.41 / 1070.41 3626.66 / 3626.66 4436.67 / 4436.67 Output Total 3050 / 3050 3475 / 3475 3075 / 3075 Balance -1978.59 / -1978.59 151.66 / 151.66 1361.67 / 1361.67 Microbiology Past 72 Hours 09/15/19 14:50 Urine Catheter - Hernandes Urine Culture - Final Culture exhibits no growth. Laboratory Results 09/16/19 17:03: POC Glucose 91 09/16/19 21:28: POC Glucose 119 H 09/17/19 05:22: WBC 8.6, RBC 2.73 L, Hgb 8.2 L, Hct 24.9 L, MCV 91.2, MCH 30.0, MCHC 32.9, RDW Std Deviation 42.3, RDW Coeff of Vera 12.9, Plt Count 279, MPV 9.6, Immature Gran % (Auto) 0.400, Neut % (Auto) 63.1, Lymph % (Auto) 23.6, [place] % (Auto) 11.9 H, Eos % (Auto) 0.9, Baso % (Auto) 0.1, Absolute Neuts (auto) 5.4, Absolute Lymphs (auto) 2.02, Nucleated RBC % 0 09/17/19 05:22: Sodium 136, Potassium 3.8, Chloride 109 H, Carbon Dioxide 15.0 L , Anion Gap 12, BUN 88 H, Creatinine 4.02 H, Estim Creat Clear Calc 15.38, Est GFR (MDRD) Af Amer 19 L, Est GFR (MDRD) Non-Af 15 L, BUN/Creatinine Ratio 21.9 H , Glucose 115 H, Calcium 6.6 L, Total Bilirubin 0.30, AST 36, ALT 49, Alkaline Phosphatase 124 H, Total Protein 5.8 L, Albumin 2.2 L, Globulin 3.6, Albumin/Globulin Ratio 0.6 L 09/17/19 06:22: POC Glucose 110 09/17/19 12:32: POC Glucose 112 H Current Medications Acetaminophen (Tylenol) 650 mg PO Q6H PRN PRN PRN Reason: Pain Score 1-10/Temp > 100.7 F Albuterol Sulfate (Ventolin Aerosols) 2.5 mg INHALATION Q2H PRN PRN PRN Reason: SOB/Wheezing Dextrose (D50w Syringe) 0 gm IV X1 PRN; Protocol PRN Reason: Hypoglycemia Glucagon () 1 mg IM .X1 PRN PRN Reason: Hypoglycemia Sodium Chloride () 250 mls @ 15 mls/hr IV .[id number] PRN PRN Reason: Saline Flush Sodium Chloride () 250 mls @ 15 mls/hr IV .[id number] PRN PRN Reason: Additional IVPB Infusion Pantoprazole Sodium 40 mg/ (Sodium Chloride) 110 mls @ 330 mls/hr IV Q24 [facility] Last Infusion: 09/17/19 10:19 Dose: Infused Documented by: Levofloxacin (Levaquin Iv) 500 mg in 100 mls @ 100 mls/hr IV Q48 [facility] Last Infusion: 09/16/19 12:17 Dose: Infused Documented by: Sodium Bicarbonate 75 meq/ (Sodium Chloride) 1,075 mls @ 100 mls/hr IV .[id number] [facility] Last Admin: 09/17/19 15:38 Dose: 100 mls/hr Documented by: Iron Sucrose 200 mg/ Sodium (Chloride) 110 mls @ 220 mls/hr IV X1 ONE Stop: 09/17/19 16:26 Insulin Human Lispro (Humalog Kwikpen (Bkc)) 0 unit SC ACHS [facility]; Protocol Last Admin: 09/17/19 13:12 Dose: Not Given Documented by: Metoprolol Tartrate (Lopressor (Beta Jozef)) 12.5 mg PO BID [facility] Last Admin: 09/17/19 09:52 Dose: 12.5 mg Documented by: Morphine Sulfate () 2 mg IV Q3H PRN PRN PRN Reason: Pain Score 4-10/10 Nitroglycerin (Nitrostat) 0.4 mg SUBLINGUAL Q5M PRN PRN Reason: CARDIAC/CHEST PAIN Nutritional Formula (Lactose Free) (Glucerna Shake) 120 ml PO TIDCM [facility] Last Admin: 09/17/19 12:00 Dose: 120 ml Documented by: Ondansetron HCl (Zofran) 4 mg IV Q8H PRN PRN PRN Reason: NAUSEA/VOMITING Prochlorperazine Edisylate (Compazine Iv) 5 mg IV Q4H PRN PRN PRN Reason: Breakthrough Nausea/Vomiting Sodium Chloride () 10 - 40 ml IV UD PRN PRN Reason: SALINE FLUSH Last Admin: 09/17/19 09:59 Dose: 10 ml Documented by: Tamsulosin HCl (Flomax) 0.4 mg PO QHS [facility] Last Admin: 09/16/19 20:39 Dose: 0.4 mg Documented by: STROKE Vital Signs/Narrative: Vital Signs Temp Pulse Resp BP Pulse Ox 09/17/19 12:30 97.6 F L 58 L 18 70/40 L 98 Medical Necessity - Tobacco Use Smoking Status: Former smoker Assessment/Plan All Active Problems Acute urinary retention (Acute) Acute pancreatitis (Acute) Bladder outlet obstruction (Acute) Acute kidney injury (Acute) The patient is a 79 year old M with multiple comorbidities as listed above for abdominal distention and abdominal pain. Patient has increased frequency and urgency with incomplete emptying of bladder. Has chronic bladder incontinence and BPH. Denies burning micturition or fever. In ED, vitals are stable. Initial labs in ER shows BUN/creatinine 98/5.72, leukocytosis with left shift. Sodium 130, K5.2, bicarb 16 with anion gap 15. UA 0 WBC, negative nitrite and leukocyte esterase. CT abdomen and pelvis without contrast was done. Reported moderate to severe bilateral hydronephrosis left more than right due to bladder outlet obstruction. 1. Acute kidney injury on CKD stage III secondary to bladder outlet obstruction/BPH/neurogenic bladder and bilateral pyelonephritis predominantly left-sided: Patient is being admitted in PCU. IV fluid normal saline 125 mils per hour. Monitor intake and output, electrolytes and kidney function. Patient had Hernandes catheter inserted in the ED. 1000 mL clear urine came out spontaneously. Urologist Dr. Couch is been consulted from ER physician. CT reported mild peritoneal fat stranding bilaterally more prominent left side suggesting pyonephritis. UA is bland. 09/15: Ceftriaxone discontinued and started on Levaquin for more effective clearance of infection. Medications dose adjusted as per creatinine clearance. 09/16: Urine culture shows no growth. 2. Acute pancreatitis, exact etiology unclear: Lipase is elevated. CT abdomen shows multiple gallstones probably asymptomatic as patient does not have right upper quadrant or epigastric tenderness. Discussed with the surgeon. Patient started on diet. Seen by surgeon and it seems as pancreatitis probably from contiguous spread from left pyonephritis. Asymptomatic cholelithiasis. No inflammation around the gallbladder region. 3. Electrolyte abnormality: Hyponatremia and hypokalemia most likely secondary to hypovolemia/volume depletion: IV fluid normal saline. Repeat electrolytes. EKG shows A. fib with PVCs at 82 bpm. Hyperkalemia, mild hyponatremia, high anion gap metabolic acidosis secondary to acute kidney injury: Stenciling Machine Tender consulted. IV fluid changed to bicarb drip. Kayexalate given. 09/16: Discussed with immigration manager. Continue IV fluid, bicarb drip. K3.8. Improvement in BUN/creatinine. Hypomagnesemia, magnesium replacement ordered. 4. Hypotension unclear probably from metoprolol from bradycardia response: Metoprolol is discontinued. Patient had minimal response with IV fluid bolus last night. Recheck the blood pressure and if is still low will need IV fluid bolus and atropine. Paroxysmal A. fib on heart rate is controlled. Hold Eliquis and other antithrombotic/antiplatelet agent secondary to hematuria. Mild troponin elevation from 0.129, 0.147 and 0.134 most probably from demand ischemia, from acute kidney injury and possible proximal A. fib. Patient has denies history of coronary artery disease/MN or CHF. 09/16: Discussed with atm technician Dr. Barron. 2D echo shows EF 65% with mild LAE. No regional wall motion abnormality. LV function normal. Ethernet Network Architect cleared the surgery from cardiology perspective but patient still high risk in view of RUBY, and hypotension. 5. Type 2 diabetes mellitus with diabetic nephropathy: Accu-Chek AC and HS cover with blood sliding scale. Blood sugar is controlled. 6. 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 Other comorbidities include hypertension, dyslipidemia, obstructive sleep apnea on BiPAP, periodic limb movement disorder: Patient abdominal distention may be partially from BiPAP. Hold on BiPAP for few days until abdominal distention resolved. Multiple comorbidities complicates the present care and expect difficult and delay recovery DVT prophylaxis: Heparin discontinued because of hematuria. Bilateral SCDs. Total time of the visit including total time spent in counseling or coordination of care, (more than 50% of the total time, spent in obtaining medical information from nurses and other ancillary care providers), discussion with different consultants, review of labs and imaging is 30 minutes Living will/advanced directive/end of life care: Patient does have living will or advanced directive. After discussion of procedures involved with full code, DNR CC arrest and DNR CC, the patient opted for DNR-CC Arrest Patient does not want artificial life support including intubation, tube feed, ventilator and/chest compression, central venous catheter, vasopressor and DC shock if needed DNR CC arrest. Total time spent in [id number] encounter in discussion of advanced directive 16 minutes. Clinical Impression(s) from Imaging Studies Abdomen/Pelvis CT 09/15/19 12:03 IMPRESSION: There is moderate to severe by the hydronephrosis is more prominent on the left side most likely due to urinary bladder outlet obstruction. There is peritoneal fat stranding bilaterally more prominent on the left side suggesting pyelonephritis. Cholelithiasis. Inpatient E&M: [id number] [facility] L3
--- NOTE | 2019-09-17 16:31 | PN.CARD_ITS ---
Objective: Vital Signs Temp Pulse Resp BP Pulse Ox 97.6 F L 58 L 18 70/40 L 98 09/17/19 12:30 09/17/19 12:30 09/17/19 12:30 09/17/19 12:30 09/17/19 12:30 Oxygen Delivery Method Room Air Weight: 210 lb 8.663 oz Body Mass Index (BMI) 30.2 Intake and Output for Last 24 Hours 09/15/19 09/16/19 09/17/19 23:59 23:59 23:59 Intake Total 1070.41 / 1070.41 3626.66 / 3626.66 4436.67 / 4436.67 Output Total 3050 / 3050 3475 / 3475 3075 / 3075 Balance -1978.59 / -1978. 151.66 / 151.66 1361.67 / 1361.67 09/17/19 05:22: WBC 8.6, RBC 2.73 L, Hgb 8.2 L, Hct 24.9 L, MCV 91.2, MCH 30.0, MCHC 32.9, Plt Count 279, MPV 9.6, Immature Gran % (Auto) 0.400, Neut % (Auto) 63.1, Lymph % (Auto) 23.6, [place] % (Auto) 11.9 H, Eos % (Auto) 0.9, Baso % (Auto) 0.1, Absolute Neuts (auto) 5.4, Nucleated RBC % 0 09/17/19 05:22: Sodium 136, Potassium 3.8, Chloride 109 H, Carbon Dioxide 15.0 L , Anion Gap 12, BUN 88 H, Creatinine 4.02 H, Est GFR (MDRD) Af Amer 19 L, Est GFR (MDRD) Non-Af 15 L, BUN/Creatinine Ratio 21.9 H, Glucose 115 H, Calcium 6.6 L, Total Bilirubin 0.30 Rhythm: EKG: ECHO: Stress Test: Cardiac Cath: PCI: CT Surgery: Holter monitor: EPS: PPM: CXR: Chest CT Scan: Medical Necessity - Tobacco Use Smoking Status: Former smoker Assessment/Plan Patient's clinical condition was discussed with Dr. Stover. No further preoperative cardiac work-up is required prior to urologic procedures. He is at low risk for perioperative cardiac complications.
--- NOTE | 2019-09-17 16:40 | NURSING ---
Assisted patient to chair without complication, or signs of bleeding. Patient reports tolerable tenderness to bilat groin sites.
[2019-09-17] MEDS: Atropine Sulfate 1 MG/10 ML Syringe IV (16:54)
[2019-09-17] MEDS: 0.9% Normal Saline 1,000 ML 999 ML IV (17:10)
[2019-09-17 17:56] LABS: Bedside Glucose 120 mg/dL (70-110)
[2019-09-17] MEDS: Tamsulosin HCl 0.4 MG Capsule PO (21:29)
[2019-09-17 22:27] LABS: Bedside Glucose 123 mg/dL (70-110)
[2019-09-18] VITALS (14 sets, daily range): BP systolic 88–134; BP diastolic 48–62; PULSE 60–78; RESP 14–20; TEMP 36.4–37; O2SAT 97–100
[2019-09-18] MEDS: Sodium Bicarbonate 75 MEQ in 0.45% Normal Saline 1,000 ML 100 ML IV (02:19)
[2019-09-18 06:47] LABS: Anion Gap 10 (5-15); BUN 65 mg/dL (7-18); BUN/Creat Ratio 22.7 RATIO (10-20); Calcium,Total 6.7 mg/dL (8.5-10.1); Chloride 109 mmol/L (98-107); Creatinine, Serum 2.86 mg/dL (0.70-1.30); EST Glomerular Filtration Rate 23 mL/min (>60); Est Glom Filt Rate - Afr Amer 28 mL/min (>60); Estimated Creatinine Clearance 21.62 ml/min; Glucose 111 mg/dL (74-106); Magnesium 1.3 mg/dL (1.6-2.6); Potassium 3.6 mmol/L (3.5-5.1); Sodium Level 141 mmol/L (136-145)
[2019-09-18 07:05] LABS: Bedside Glucose 102 mg/dL (70-110)
--- NOTE | 2019-09-18 07:36 | PN_ITS ---
Progress Note Patient seen by cardiology, he is cleared from cardiology standpoint for a TURP his creatinine is getting better, OR availability my schedule is full at this point so I will not be able to do surgery till next Sunday he is not necessary for him to stay in the hospital till then he can be discharged with a catheter once medically stable. I have my office schedule him for an outpatient TURP next Sunday here at [facility]. Hold all blood thinners till then. Call me with questions. He can be discharged once medically stable no plan for TURP on this admission at this point mostly to have time on my operative schedule scheduled for next week.
--- NOTE | 2019-09-18 08:07 | EKG12_ITS ---
Test Reason : VTACH Blood Pressure : / mmHG Vent. Rate : 066 BPM Atrial Rate : 065 BPM P-R Int : 000 ms QRS Dur : 084 ms QT Int : 430 ms P-R-T Axes : 000 029 041 degrees QTc Int : 450 ms Atrial fibrillation Abnormal ECG When compared with ECG of 15-SEP-2019 12:23, No significant change was found Confirmed by FRANK CLARKE, KYLEE ([id number]), editor farm journal ERICK RED ([id number] on 09/23/2019 3:50:27 PM Referred By: ANGELO Confirmed By:KYLEE MARIE MD
--- NOTE | 2019-09-18 08:12 | PN_ITS ---
Patient Problems: Active and Suspected Problems Acute urinary retention (Acute) Acute pancreatitis (Acute) Bladder outlet obstruction (Acute) Acute kidney injury (Acute) Reason for Visit: Follow-up acute kidney injury with bilateral hydronephrosis and possible pyelonephritis. Objective: Nurse called me for 35 beats. Total duration was about 22.18 seconds therefore prolonged NSVT. Magnesium 2 g IV, amiodarone 150 mg IV bolus and then amiodarone drip ordered. Twelve-lead EKG and troponin ordered. Levaquin discontinued although did not get today. Patient is asymptomatic with no chest pain, shortness of breath or palpitation. He was cleaning/moist sponge in his body. Rhythm strip does not seem heart defect. patient also had frequent PVCs and pulses bigeminy and trigeminy. Yesterday he had hypotension which resolved after atropine it was mostly bradycardia driven. Vitals/I&O's: Vital Signs Temp Pulse Resp BP Pulse Ox 98.3 F 74 18 112/62 100 09/18/19 03:21 09/18/19 03:34 09/18/19 03:21 09/18/19 03:21 09/18/19 07:45 Oxygen Delivery Method Room Air Weight: 216 lb Body Mass Index (BMI) 30.2 Intake and Output for Last 24 Hours 09/16/19 09/17/19 09/18/19 23:59 23:59 23:59 Intake Total 3626.66 / 3626.66 6410.67 / 6410.67 1548.33 / 1548.33 Output Total 3475 / 3475 6975 / 6975 2800 / 2800 Balance 151.66 / 151.66 -564.33 / -564.33 -1251.67 / -1251.67 General: Alert, Oriented x3, Cooperative HEENT: Atraumatic, PERRLA, EOMI, Normocephalic Neck: Supple, No JVD, Negative Carotid Bruits Lungs: Clear to auscultation, Normal air movement, No rhonchi, No wheeze, No rales, Diminished Cardiovascular: Regular rate, Normal S1, Normal S2, No murmurs, Irregular Rate - 35 beats of NSVT, total duration 22.18-second Abdomen: Bowel Sounds Present, Soft, Non Tender Extremities: Capillary Refill Less than 3 Seconds, Edema Skin: No rashes, No breakdown Musculoskeletal: No Tenderness to Palpation of Joints or Extremities, Arthritic Changes Neurological: Cranial nerves II-XII grossly intact, Deep Tendon Reflexes 2+/4 and Symmetrical, Neuro grossly intact Psych/Mental Status: Normal Affect, Appropriate Microbiology Past 72 Hours 09/15/19 14:50 Urine Catheter - Hernandes Urine Culture - Final Culture exhibits no growth. Laboratory Results 09/17/19 05:22: Magnesium 1.0 L 09/17/19 12:32: POC Glucose 112 H 09/17/19 16:17: POC Glucose 120 H 09/17/19 21:28: POC Glucose 123 H 09/18/19 05:21: Sodium 141, Potassium 3.6, Chloride 109 H, Carbon Dioxide 22.0, Anion Gap 10, BUN 65 H, Creatinine 2.86 H, Estim Creat Clear Calc 21.62, Est GFR (MDRD) Af Amer 28 L, Est GFR (MDRD) Non-Af 23 L, BUN/Creatinine Ratio 22.7 H, Glucose 111 H, Calcium 6.7 L, Phosphorus 3.0, Magnesium 1.3 L 09/18/19 06:42: POC Glucose 102 Current Medications Acetaminophen (Tylenol) 650 mg PO Q6H PRN PRN PRN Reason: Pain Score 1-10/Temp > 100.7 F Albuterol Sulfate (Ventolin Aerosols) 2.5 mg INHALATION Q2H PRN PRN PRN Reason: SOB/Wheezing Dextrose (D50w Syringe) 0 gm IV X1 PRN; Protocol PRN Reason: Hypoglycemia Glucagon () 1 mg IM .X1 PRN PRN Reason: Hypoglycemia Sodium Chloride () 250 mls @ 15 mls/hr IV .[id number] PRN PRN Reason: Saline Flush Sodium Chloride () 250 mls @ 15 mls/hr IV .[id number] PRN PRN Reason: Additional IVPB Infusion Pantoprazole Sodium 40 mg/ (Sodium Chloride) 110 mls @ 330 mls/hr IV Q24 [facility] Last Infusion: 09/17/19 10:19 Dose: Infused Documented by: Sodium Bicarbonate 75 meq/ (Sodium Chloride) 1,075 mls @ 100 mls/hr IV .[id number] [facility] Last Admin: 09/18/19 02:19 Dose: 100 mls/hr Documented by: Magnesium Sulfate 2 gm/ Sodium (Chloride) 104 mls @ 52 mls/hr IV X1 ONE Stop: 09/18/19 09:59 Amiodarone HCl 150 mg/ (Dextrose) 103 mls @ 600 mls/hr IV BOLUS X1 ONE Stop: 09/18/19 08:30 Amiodarone HCl 360 mg/ (Dextrose) 200 mls @ 33.333 mls/hr CONT INF .Q6H [facility] Stop: 09/18/19 14:29 Amiodarone HCl 360 mg/ (Dextrose) 200 mls @ 16.667 mls/hr CONT INF .Q12H [facility] Stop: 09/19/19 08:29 Insulin Human Lispro (Humalog Kwikpen (Bkc)) 0 unit SC [facility]; Protocol Last Admin: 09/18/19 06:30 Dose: Not Given Documented by: Morphine Sulfate () 2 mg IV Q3H PRN PRN PRN Reason: Pain Score 4-10/10 Nitroglycerin (Nitrostat) 0.4 mg SUBLINGUAL Q5M PRN PRN Reason: CARDIAC/CHEST PAIN Nutritional Formula (Lactose Free) (Glucerna Shake) 120 ml PO TIDCM [facility] Last Admin: 09/17/19 18:17 Dose: Not Given Documented by: Ondansetron HCl (Zofran) 4 mg IV Q8H PRN PRN PRN Reason: NAUSEA/VOMITING Prochlorperazine Edisylate (Compazine Iv) 5 mg IV Q4H PRN PRN PRN Reason: Breakthrough Nausea/Vomiting Sodium Chloride () 10 - 40 ml IV UD PRN PRN Reason: SALINE FLUSH Last Admin: 09/17/19 19:08 Dose: 10 ml Documented by: Tamsulosin HCl (Flomax) 0.4 mg PO QHS [facility] Last Admin: 09/17/19 21:29 Dose: 0.4 mg Documented by: STROKE Vital Signs/Narrative: Vital Signs Pulse Ox 09/18/19 07:45 100 Medical Necessity - Tobacco Use Smoking Status: Former smoker Assessment/Plan All Active Problems Acute urinary retention (Acute) Acute pancreatitis (Acute) Bladder outlet obstruction (Acute) Acute kidney injury (Acute) The patient is a 79 year old M with multiple comorbidities as listed above for abdominal distention and abdominal pain. Patient has increased frequency and urgency with incomplete emptying of bladder. Has chronic bladder incontinence and BPH. Denies burning micturition or fever. In ED, vitals are stable. Initial labs in ER shows BUN/creatinine 98/5.72, leukocytosis with left shift. Sodium 130, K5.2, bicarb 16 with anion gap 15. UA 0 WBC, negative nitrite and leukocyte esterase. CT abdomen and pelvis without contrast was done. Reported moderate to severe bilateral hydronephrosis left more than right due to bladder outlet obstruction. 1. Acute kidney injury on CKD stage III secondary to bladder outlet obstruction/BPH/neurogenic bladder and bilateral pyelonephritis predominantly left-sided: Patient is being admitted in PCU. IV fluid normal saline 125 mils per hour. Monitor intake and output, electrolytes and kidney function. Patient had Hernandes catheter inserted in the ED. 1000 mL clear urine came out spontaneously. Urologist Dr. Couch is been consulted from ER physician. CT reported mild peritoneal fat stranding bilaterally more prominent left side suggesting pyonephritis. UA is bland. 09/15: Ceftriaxone discontinued and started on Levaquin for more effective clearance of infection. Medications dose adjusted as per creatinine clearance. 09/16: Urine culture shows no growth. 09/17: Antibiotic discontinued as UA and urine culture negative and patient does not have renal angle tenderness. 2. NSVT, total duration 22.18-second: Discussed with cardiology. Seems mainly secondary to metabolic in etiology, secondary to hypomagnesemia and acute kidney injury: Magnesium and potassium replacement. Keep mag more than 2 and potassium more than 4. Initially thought to start START amiodarone but later on dis continued 3. Acute pancreatitis, exact etiology unclear: Lipase is elevated. CT abdomen shows multiple gallstones probably asymptomatic as patient does not have right upper quadrant or epigastric tenderness. Discussed with the surgeon. Patient started on diet. Seen by surgeon and it seems as pancreatitis probably from contiguous spread from left pyonephritis. Asymptomatic cholelithiasis. No inflammation around the gallbladder region. 4.. Electrolyte abnormality: Hyponatremia and hypokalemia most likely secondary to hypovolemia/volume depletion: IV fluid normal saline. Repeat electrolytes. EKG shows A. fib with PVCs at 82 bpm. Hyperkalemia, mild hyponatremia, high anion gap metabolic acidosis secondary to acute kidney injury: Salesperson [employer] consulted. IV fluid changed to bicarb drip. Kayexalate given. 09/16: Discussed with director of engineering. Continue IV fluid, bicarb drip. K3.8. Improvement in BUN/creatinine. 4. Hypotension unclear probably from metoprolol from bradycardia response: Metoprolol is discontinued. 09/17: Blood pressure dropped dropped to systolic 88/48 and then recovered after a Medrol IV push was [facility]. Blood pressure recovered 102/48. No Hypoxia or tachypnea. 5. Paroxysmal A. fib on heart rate is controlled. Hold Eliquis and other antithrombotic/antiplatelet agent secondary to hematuria. Mild troponin elevation from 0.129, 0.147 and 0.134 most probably from demand ischemia, from acute kidney injury and possible proximal A. fib. Patient has denies history of coronary artery disease/HI or CHF. 09/16: Discussed with database tester Dr. Barron. 2D echo shows EF 65% with mild LAE. No regional wall motion abnormality. LV function normal. Project Production Engineer cleared the surgery from cardiology perspective but patient still high risk in view of RUBY, and hypotension. 09/17: Troponin mildly elevated 0.126 probably secondary to demand ischemia. Cardiology saw the patient and echo as mentioned above. 6.. Type 2 diabetes mellitus with diabetic nephropathy: Accu-Chek AC and HS cover with blood sliding scale. Blood sugar is controlled. 7.. 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 Other comorbidities include hypertension, dyslipidemia, obstructive sleep apnea on BiPAP, periodic limb movement disorder: Patient abdominal distention may be partially from BiPAP. Hold on BiPAP for few days until abdominal distention resolved. Multiple comorbidities complicates the present care and expect difficult and delay recovery DVT prophylaxis: Heparin discontinued because of hematuria. Bilateral SCDs. Total time of the visit including total time spent in counseling or coordination of care, (more than 50% of the total time, spent in obtaining medical information from nurses and other ancillary care providers), discussion with different consultants, review of labs and imaging is 30 minutes Living will/advanced directive/end of life care: Patient does have living will or advanced directive. After discussion of procedures involved with full code, DNR CC arrest and DNR CC, the patient opted for DNR-CC Arrest Patient does not want artificial life support including intubation, tube feed, ventilator and/chest compression, central venous catheter, vasopressor and DC shock if needed DNR CC arrest. Total time spent in [id number] encounter in discussion of advanced directive 16 minutes. Clinical Impression(s) from Imaging Studies Abdomen/Pelvis CT 09/15/19 12:03 IMPRESSION: There is moderate to severe by the hydronephrosis is more prominent on the left side most likely due to urinary bladder outlet obstruction. There is peritoneal fat stranding bilaterally more prominent on the left side suggesting pyelonephritis. Cholelithiasis. Inpatient E&M: [id number] [facility] Hosp L3
--- NOTE | 2019-09-18 08:39 | PCM.PN.REN ---
Patient Problems: Active and Suspected Problems Acute urinary retention (Acute) Acute pancreatitis (Acute) Bladder outlet obstruction (Acute) Acute kidney injury (Acute) Subjective: no sob no cp no dizziness no palpitations - Physical Exam Vitals/I&O's: Vital Signs Temp Pulse Resp BP Pulse Ox 98.3 F 74 18 112/62 100 09/18/19 03:21 09/18/19 03:34 09/18/19 03:21 09/18/19 03:21 09/18/19 07:45 Oxygen Delivery Method Room Air Weight: 97.976 kg Body Mass Index (BMI) 30.2 Intake and Output for Last 24 Hours 09/16/19 09/17/19 09/18/19 23:59 23:59 23:59 Intake Total 3626.66 / 3626.66 6410.67 / 6410.67 1548.33 / 1548.33 Output Total 3475 / 3475 6975 / 6975 2800 / 2800 Balance 151.66 / 151.66 -564.33 / -564.33 -1251.67 / -1251.67 General: Alert, Cooperative HEENT: Atraumatic, EOMI Neck: Supple Lungs: Clear to auscultation, Rales Abdomen: Bowel Sounds Present, Soft Extremities: No edema Microbiology Past 72 Hours 09/15/19 14:50 Urine Catheter - Hernandes Urine Culture - Final Culture exhibits no growth. Laboratory Results 09/17/19 05:22: Magnesium 1.0 L 09/17/19 12:32: POC Glucose 112 H 09/17/19 16:17: POC Glucose 120 H 09/17/19 21:28: POC Glucose 123 H 09/18/19 05:21: Sodium 141, Potassium 3.6, Chloride 109 H, Carbon Dioxide 22.0, Anion Gap 10, BUN 65 H, Creatinine 2.86 H, Estim Creat Clear Calc 21.62, Est GFR (MDRD) Af Amer 28 L, Est GFR (MDRD) Non-Af 23 L, BUN/Creatinine Ratio 22.7 H, Glucose 111 H, Calcium 6.7 L, Phosphorus 3.0, Magnesium 1.3 L 09/18/19 06:42: POC Glucose 102 Current Medications Acetaminophen (Tylenol) 650 mg PO Q6H PRN PRN PRN Reason: Pain Score 1-10/Temp > 100.7 F Albuterol Sulfate (Ventolin Aerosols) 2.5 mg INHALATION Q2H PRN PRN PRN Reason: SOB/Wheezing Dextrose (D50w Syringe) 0 gm IV X1 PRN; Protocol PRN Reason: Hypoglycemia Glucagon () 1 mg IM .X1 PRN PRN Reason: Hypoglycemia Sodium Chloride () 250 mls @ 15 mls/hr IV .[id number] PRN PRN Reason: Saline Flush Sodium Chloride () 250 mls @ 15 mls/hr IV .[id number] PRN PRN Reason: Additional IVPB Infusion Pantoprazole Sodium 40 mg/ (Sodium Chloride) 110 mls @ 330 mls/hr IV Q24 [facility] Last Infusion: 09/17/19 10:19 Dose: Infused Documented by: Magnesium Sulfate 2 gm/ Sodium (Chloride) 104 mls @ 52 mls/hr IV X1 ONE Stop: 09/18/19 09:59 Amiodarone HCl 360 mg/ (Dextrose) 200 mls @ 33.333 mls/hr CONT INF .Q6H [facility] Stop: 09/18/19 14:29 Amiodarone HCl 360 mg/ (Dextrose) 200 mls @ 16.667 mls/hr CONT INF .Q12H [facility] Stop: 09/19/19 08:29 Sodium Chloride () 1,000 mls @ 100 mls/hr IV .Q10H [facility] Insulin Human Lispro (Humalog Kwikpen (Bkc)) 0 unit SC [facility]; Protocol Last Admin: 09/18/19 06:30 Dose: Not Given Documented by: Morphine Sulfate () 2 mg IV Q3H PRN PRN PRN Reason: Pain Score 4-10/10 Nitroglycerin (Nitrostat) 0.4 mg SUBLINGUAL Q5M PRN PRN Reason: CARDIAC/CHEST PAIN Nutritional Formula (Lactose Free) (Glucerna Shake) 120 ml PO TIDCM [facility] Last Admin: 09/17/19 18:17 Dose: Not Given Documented by: Ondansetron HCl (Zofran) 4 mg IV Q8H PRN PRN PRN Reason: NAUSEA/VOMITING Prochlorperazine Edisylate (Compazine Iv) 5 mg IV Q4H PRN PRN PRN Reason: Breakthrough Nausea/Vomiting Sodium Chloride () 10 - 40 ml IV UD PRN PRN Reason: SALINE FLUSH Last Admin: 09/17/19 19:08 Dose: 10 ml Documented by: Tamsulosin HCl (Flomax) 0.4 mg PO QHS [facility] Last Admin: 09/17/19 21:29 Dose: 0.4 mg Documented by: Medical Necessity - Tobacco Use Smoking Status: Former smoker Assessment/Plan All Active Problems Acute urinary retention (Acute) Acute pancreatitis (Acute) Bladder outlet obstruction (Acute) Acute kidney injury (Acute) RUBY likely secondary to bilateral obstructive uropathy Hyperkalemia resolved Metabolic acidosis resolved Hyperphosphatemia resolved Hypomagnesemia Hypocalcemia Bilateral hydronephrosis with bladder outlet obstruction status post Hernandes insertion Scr 2.8 improving Patient received 3 L bolus yesterday and is more than 3 L positive we will hold the IV fluids for now considering also arrhythmia replace Mg and Ca monitor cards seeing patient for arrhytmia Avoid nephrotoxins and hypotension Urology is seeing the patient Monitor phos binders prn should improve with improvement in renal failure check phos mg in am d/w dr. Stover T
[2019-09-18] MEDS: 0.9% Saline Lock 10 ML Syringe IV ×2 (09:06→10:05)
[2019-09-18 09:30] LABS: Absolute Lymphocyte Count 1.76 X10^3/uL (0.83-4.51); Absolute Neutrophil Count 6.5 X10^3/uL (2.0-7.7); Basophil# 0.04 X10^3/uL; Basophil% 0.4 % (0-1); Eosinophil# 0.26 X10^3/uL; Eosinophils% 2.7 % (0-5); Hematocrit 27.6 % (40-54); Hemoglobin 9.2 g/dL (13.0-16.5); Lymphocyte # 1.76 X10^3/ul (4.0); Lymphocyte % 18.3 % (19-41); Mean Corp Hgb Conc 33.3 g/dL (32-36); Mean Corpuscular Hgb 30.2 pg (27.0-32.0); Mean Corpuscular Volume 90.5 fL (80-94); Monocyte# 1.03 X10^3/uL; Monocyte% 10.7 % (0-10); NRBC Flagged by Analyzer 0 % (0-5); Neutrophil # 6.49 X10^3/uL (2.7-7.7); Neutrophil % 67.4 % (47-70); Platelet Count 327 K/mm3 (150-450); Red Blood Count 3.05 M/mm3 (4.6-6.2); White Blood Count 9.6 K/mm3 (4.4-11.0)
[2019-09-18] MEDS: Glucerna Shake 120 ML LIQUID PO ×2 (09:58→16:39)
[2019-09-18 10:01] LABS: Magnesium 1.1 mg/dL (1.6-2.6)
[2019-09-18] MEDS: Insulin Lispro 100 UNIT/ML INSULN.PEN SC (11:24)
[2019-09-18 12:40] LABS: Bedside Glucose 168 mg/dL (70-110)
--- NOTE | 2019-09-18 15:35 | PCM.CONS.C ---
Reason for Consult Date of Consultation: 09/18/19 Reason for Consultation: Nonsustained V. tach, preoperative evaluation History of Present Illness: The patient is a 79 year old male who presented to the hospital with abdominal pain and had been urinating frequently small volumes now for quite some time could not really remember how long, he did see a urologist long time ago but has not seen one in a while. No history of prostate cancer. No history of prior prostate surgery. Presented with abdominal pain CAT scan was done that demonstrated bilateral hydronephrosis and a distended bladder catheter was put in a significant volume of urine was drained out another urine is slightly bloody but clearing. He does have an elevated creatinine on admission with acute kidney injury. Cardiology consult was requested for evaluation prior to transurethral resection of prostate. Patient had borderline elevation of troponin. Last night he had a 35 beat run of nonsustained V. tach. Patient has history of A. fib. He has seen Dr. Lopez in the past. He apparently had a stress test about a year back which was negative for ischemia. He had a 2D echo during this admission which showed preserved EF. His magnesium was low and potassium was at lower limits of normal. Patient was given magnesium IV after his episode of nonsustained V. tach. Since then he has had occasional PVCs but no long runs of nonsustained V. tach. Patient was also started on amiodarone which has now been discontinued. Review of systems: All systems reviewed. All else is negative except in HPI. Past Medical History Allergies/Adverse Reactions: Allergies Penicillins Allergy (Verified 09/15/19 11:16) Hives Home Medications: Ambulatory Orders Medication Instructions Recorded Apixaban [Eliquis] 5 mg PO BID 09/15/19 Hydrochlorothiazide 12.5 mg PO DAILY 09/15/19 Lisinopril [Zestril] 20 mg PO DAILY 09/15/19 Metformin HCl 500 mg PO DAILY 09/15/19 Pantoprazole Sodium [Protonix] 20 mg PO DAILY 09/15/19 Rosuvastatin Calcium [Crestor] 40 mg PO DAILY 09/15/19 Tamsulosin HCl 0.4 mg PO QHS 09/15/19 Past Medical History (Chronic Problems): Chronic Problems GERD (gastroesophageal reflux disease) (Chronic) Osteoarthritis (Chronic) HTN (hypertension) (Chronic) Hyperlipidemia (Chronic) Type 2 diabetes mellitus with diabetic nephropathy, 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) BPH (benign prostatic hyperplasia) (Chronic) Bilateral hydronephrosis GOLDEN treated with BiPAP (Chronic) CVA (cerebral vascular accident) (Chronic) Multiple thyroid nodules (Chronic) Periodic limb movement disorder (Chronic) PAF (paroxysmal atrial fibrillation) (Chronic) Surgical History: no surgical history Smoking Status: Former smoker Objective: Vital Signs Temp Pulse Resp BP Pulse Ox 97.6 F L 63 18 102/48 L 99 09/18/19 11:15 09/18/19 15:00 09/18/19 11:15 09/18/19 11:15 09/18/19 11:15 Oxygen Delivery Method Room Air Weight: 216 lb Body Mass Index (BMI) 30.2 Intake and Output for Last 24 Hours 09/16/19 09/17/19 09/18/19 23:59 23:59 23:59 Intake Total 3626.66 / 3626.66 6410.67 / 6410.67 3289.66 / 3289.66 Output Total 3475 / 3475 6975 / 6975 3350 / 3350 Balance 151.66 / 151.66 -564.33 / -564.33 -60.34 / -60.34 General: Awake, Alert, Oriented x 3 HEENT: Atraumatic Neck: Supple Cardiovascular: Irregular Rhythm Psych/Mental Status: Appropriate 09/17/19 05:22: Magnesium 1.0 L 09/18/19 05:21: Sodium 141, Potassium 3.6, Chloride 109 H, Carbon Dioxide 22.0, Anion Gap 10, BUN 65 H, Creatinine 2.86 H, Est GFR (MDRD) Af Amer 28 L, Est GFR (MDRD) Non-Af 23 L, BUN/Creatinine Ratio 22.7 H, Glucose 111 H, Calcium 6.7 L, Phosphorus 3.0, Magnesium 1.3 L 09/18/19 09:20: Troponin I 0.126 H 09/18/19 09:20: Magnesium 1.1 L 09/18/19:20: WBC 9.6, RBC 3.05 L, Hgb 9.2 L, Hct 27.6 L, MCV 90.5, MCH 30.2, MCHC 33.3, Plt Count 327, MPV 9.0, Immature Gran % (Auto) 0.500, Neut % (Auto) 67.4, Lymph % (Auto) 18.3 L, [place] % (Auto) 10.7 H, Eos % (Auto) 2.7, Baso % (Auto) 0.4, Absolute Neuts (auto) 6.5, Nucleated RBC % 0 Rhythm: EKG: ECHO: Stress Test: Cardiac Cath: PCI: CT Surgery: Holter monitor: EPS: PPM: CXR: Chest CT Scan: Assessment/Plan 1. Preoperative cardiovascular evaluation: Patient does not need any further tests at this time prior to transurethral resection of prostate. This has been scheduled for next Sunday according to the patient. It would be okay to hold any blood thinners for this procedure. 2. Nonsustained V. tach: Likely secondary to hypomagnesemia and potassium being on the lower side. Recommend keeping the magnesium level close to 2 and potassium level close to 4. When patient presented to the hospital secondary to acute kidney injury his potassium was on the high side. It is reasonable to be cautious with loading him up with potassium. Agree with stopping the amiodarone. Patient's heart rate is on the low side and so we will not keep him on a beta-leslie either.
[2019-09-18 16:45] LABS: Bedside Glucose 108 mg/dL (70-110)
[2019-09-18] MEDS: Tamsulosin HCl 0.4 MG Capsule PO (22:20)
[2019-09-19] VITALS (7 sets, daily range): BP systolic 92–101; BP diastolic 51–59; PULSE 54–73; RESP 13–16; TEMP 36.3–36.6; O2SAT 96–97
--- NOTE | 2019-09-19 00:27 | NURSING ---
Just before 2300, charge master specialist reported to this RN that pt was threatening to leave AMA d/t not receiving his Gabapentin. This RN was in with another pt; therefore Cuca Valentine RN communicated with Dr. Bangura. Dr. Bangura placed an order for Gabapentin. This RN gave Gabapentin. No further issues with pt wanting to leave at this time.
[2019-09-19 03:11] LABS: Bedside Glucose 128 mg/dL (70-110)
[2019-09-19 06:05] LABS: Absolute Lymphocyte Count 2.44 X10^3/uL (0.83-4.51); Basophil# 0.05 X10^3/uL; Basophil% 0.5 % (0-1); Eosinophil# 0.54 X10^3/uL; Eosinophils% 5.3 % (0-5); Hematocrit 27.4 % (40-54); Hemoglobin 9.3 g/dL (13.0-16.5); Lymphocyte # 2.44 X10^3/ul (4.0); Lymphocyte % 23.9 % (19-41); Mean Corp Hgb Conc 33.9 g/dL (32-36); Mean Corpuscular Hgb 30.3 pg (27.0-32.0); Mean Corpuscular Volume 89.3 fL (80-94); Mean Platelet Vol. 9.4 fl (6.2-12.0); Monocyte# 1.18 X10^3/uL; Monocyte% 11.5 % (0-10); NRBC Flagged by Analyzer 0 % (0-5); Neutrophil # 5.96 X10^3/uL (2.7-7.7); Neutrophil % 58.3 % (47-70); Platelet Count 341 K/mm3 (150-450); RBC Distribution Width SD 42.9 fl (35.1-43.9); Red Blood Count 3.07 M/mm3 (4.6-6.2); White Blood Count 10.2 K/mm3 (4.4-11.0)
[2019-09-19 06:40] LABS: Anion Gap 6 (5-15); BUN 43 mg/dL (7-18); BUN/Creat Ratio 19.7 RATIO (10-20); Calcium,Total 7.3 mg/dL (8.5-10.1); Chloride 107 mmol/L (98-107); Creatinine, Serum 2.18 mg/dL (0.70-1.30); EST Glomerular Filtration Rate 31 mL/min (>60); Est Glom Filt Rate - Afr Amer 38 mL/min (>60); Estimated Creatinine Clearance 28.37 ml/min; Glucose 116 mg/dL (74-106); Magnesium 1.8 mg/dL (1.6-2.6); Potassium 4.1 mmol/L (3.5-5.1); Sodium Level 136 mmol/L (136-145)
[2019-09-19 08:05] LABS: Bedside Glucose 96 mg/dL (70-110)
[2019-09-19] MEDS: Glucerna Shake 120 ML LIQUID PO (09:09)
--- NOTE | 2019-09-19 10:59 | PN.RENAL_ITS ---
Patient Problems: Active and Suspected Problems Acute urinary retention (Acute) Acute pancreatitis (Acute) Bladder outlet obstruction (Acute) Acute kidney injury (Acute) Subjective: no sob/cp no c/o - Physical Exam Vitals/I&O's: Vital Signs Temp Pulse Resp BP Pulse Ox 97.3 F L 69 16 92/51 L 96 09/19/19 10:29 09/19/19 10:29 09/19/19 10:29 09/19/19 10:29 09/19/19 10:29 Oxygen Delivery Method Room Air Weight: 97.976 kg Body Mass Index (BMI) 30.2 Intake and Output for Last 24 Hours 09/17/19 09/18/19 09/19/19 23:59 23:59 23:59 Intake Total 6410.67 / 6410.67 4494.66 / 4494.66 200 / 200 Output Total 6975 / 6975 8275 / 8275 1600 / 1600 Balance -564.33 / -564.33 -3780.34 / -3780.34 -1400 / -1400 General: Alert, Oriented x3 HEENT: Atraumatic, Normocephalic Neck: Supple Lungs: Clear to auscultation, Normal air movement Cardiovascular: Regular rate, Regular Rhythm Abdomen: Bowel Sounds Present, Soft Extremities: No clubbing, No edema Skin: No rashes Neurological: Cranial nerves II-XII grossly intact Microbiology Past 72 Hours 09/15/19 14:50 Urine Catheter - Hernandes Urine Culture - Final Culture exhibits no growth. Laboratory Results 09/18/19 11:22: POC Glucose 168 H 09/18/19 16:38: POC Glucose 108 09/18/19 22:19: POC Glucose 128 H 09/19/19 05:23: Sodium 136, Potassium 4.1, Chloride 107, Carbon Dioxide 23.0, Anion Gap 6, BUN 43 H, Creatinine 2.18 H, Estim Creat Clear Calc 28.37, Est GFR (MDRD) Af Amer 38 L, Est GFR (MDRD) Non-Af 31 L, BUN/Creatinine Ratio 19.7, Glucose 116 H, Calcium 7.3 L, Magnesium 1.8 09/19/19 05:23: WBC 10.2, RBC 3.07 L, Hgb 9.3 L, Hct 27.4 L, MCV 89.3, MCH 30.3, MCHC 33.9, RDW Std Deviation 42.9, RDW Coeff of Vera 13.0, Plt Count 341, MPV 9.4, Immature Gran % (Auto) 0.500, Neut % (Auto) 58.3, Lymph % (Auto) 23.9, [place] % (Auto) 11.5 H, Eos % (Auto) 5.3 H, Baso % (Auto) 0.5, Absolute Neuts (auto) 6.0, Absolute Lymphs (auto) 2.44, Nucleated RBC % 0 09/19/19 06:29: POC Glucose 96 Current Medications Acetaminophen (Tylenol) 650 mg PO Q6H PRN PRN PRN Reason: Pain Score 1-10/Temp > 100.7 F Albuterol Sulfate (Ventolin Aerosols) 2.5 mg INHALATION Q2H PRN PRN PRN Reason: SOB/Wheezing Dextrose (D50w Syringe) 0 gm IV X1 PRN; Protocol PRN Reason: Hypoglycemia Glucagon () 1 mg IM .X1 PRN PRN Reason: Hypoglycemia Sodium Chloride () 250 mls @ 15 mls/hr IV .[id number] PRN PRN Reason: Saline Flush Sodium Chloride () 250 mls @ 15 mls/hr IV .[id number] PRN PRN Reason: Additional IVPB Infusion Insulin Human Lispro (Humalog K[facility] (B[facility])) [facility] Protocol Last Admin: 09/19/19 06:30 Dose: Not Given Documented by: Morphine Sulfate () 2 mg IV Q3H PRN PRN PRN Reason: Pain Score 4-10/10 Nitroglycerin (Nitrostat) 0.4 mg SUBLINGUAL Q5M PRN PRN Reason: CARDIAC/CHEST PAIN Nutritional Formula (Lactose Free) (Glucerna Shake) 120 ml PO TIDCM [facility]END[facility] TO [facility] Last Admin: 09/19/19 09:09 Dose: 120 ml Documented by: Ondansetron HCl (Zofran) 4 mg IV Q8H PRN PRN PRN Reason: NAUSEA/VOMITING Pantoprazole Sodium (Protonix) 40 mg PO DAILY [facility] TO [facility] Prochlorperazine Edisylate (Compazine Iv) 5 mg IV Q4H PRN PRN PRN Reason: Breakthrough Nausea/Vomiting Sodium Chloride () 10 - 40 ml IV UD PRN PRN Reason: SALINE FLUSH Last Admin: 09/18/19 10:05 Dose: 10 ml Documented by: Tamsulosin HCl (Flomax) 0.4 mg PO QHS [facility] Last Admin: 09/18/19 22:20 Dose: 0.4 mg Documented by: Medical Necessity - Tobacco Use Smoking Status: Former smoker Assessment/Plan All Active Problems Acute urinary retention (Acute) Acute pancreatitis (Acute) Bladder outlet obstruction (Acute) Acute kidney injury (Acute) RUBY likely secondary to bilateral obstructive uropathy Hyperkalemia resolved Metabolic acidosis resolved Hyperphosphatemia resolved Hypomagnesemia Hypocalcemia Bilateral hydronephrosis with bladder outlet obstruction status post Hernandes insertion Scr 2.1 improving Mg 1.8 today Avoid nephrotoxins and hypotension Urology is seeing the patient for TURP in one week will go home with Greta d/w dr. Ck Rajan
--- NOTE | 2019-09-19 11:05 | DCINST_ITS ---
- Discharge Diagnoses Current Active Problems: Current Active and Chronic Problems Acute urinary retention (Acute) Acute pancreatitis (Acute) Bladder outlet obstruction (Acute) Acute kidney injury (Acute) You will use the following diet at home:: Calorie/Carbohydrate Controlled (specify 1200, 1400, etc) Your food should be the consistency of: Regular Discharge Activity: May Not Drive Weight Bearing Status: Weight bearing as tolerated Call your doctor if you observe: Fever of 101 or Higher, Change in Color, Inability to urinate, Inability to have a bowel movement, Shortness of breath, Dizziness, Fainting spells, Swelling in the ankles, Chest pain, Prolonged hiccoughing, Increased palpitations (irregular heartbeat), Calf discomfort Additional Instructions: Hold all medications except Protonix and Flomax. Last dose of Eliquis was Sunday evening dose. Allergies/Adverse Reactions: Allergies Penicillins Allergy (Verified 09/15/19 11:16) Hives Medications to take at Discharge Pantoprazole Sodium [Protonix] 20 mg PO DAILY 09/15/19 Tamsulosin HCl 0.4 mg PO QHS 09/15/19 Apixaban [Eliquis] 2.5 mg PO BID #0 09/19/19 Hydrochlorothiazide 12.5 mg PO DAILY #0 09/19/19 Lisinopril [Zestril] 10 mg PO DAILY #0 09/19/19 Metformin HCl 500 mg PO DAILY #0 09/19/19 Rosuvastatin Calcium [Crestor] 40 mg PO DAILY #0 09/19/19 Primary Care Physician: Brady Drake MD [Primary Care Provider] - Please follow up with your Primary Care Physician in: ON 09/23/2019 to follow up BMP Test Results: Test results from this visit will be discussed in further detail at your follow- up appointment, if applicable. Please Follow Up With: Solo Bunch MD When: IN 2 WEEKS for RUBY Please Follow Up With: Car Thayer MD When: next week TURP on Sunday Please Follow Up With: Samy Barron MD When: for A fib in 4 weeks
--- NOTE | 2019-09-19 11:09 | CASEMGMT ---
Pt will go home with jimmy at discharge. Call to Miryam at [facility] to notify of pt discharge today and message left for her at this time. Joe LONGORIA CM
[2019-09-19] MEDS: Pantoprazole Sodium 40 MG Tablet PO (11:10)
--- NOTE | 2019-09-19 11:12 | DS.PCM_ITS ---
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 Patient has increased frequency and urgency with incomplete emptying of bladder. Has chronic bladder incontinence and BPH. Denies burning micturition or fever. In ED, vitals are stable. Initial labs in ER shows BUN/creatinine 98/5.72, leukocytosis with left shift. Sodium 130, K5.2, bicarb 16 with anion gap 15. UA 0 WBC, negative nitrite and leukocyte esterase. CT abdomen and pelvis without contrast was done. Reported moderate to severe bilateral hydronephrosis left more than right due to bladder outlet obstruction. 1. Acute kidney injury on CKD stage III secondary to bladder outlet obstruction/BPH/neurogenic bladder and bilateral pyelonephritis predominantly left-sided: Patient is being admitted in PCU. IV fluid normal saline 125 mils per hour. Monitor intake and output, electrolytes and kidney function. Patient had Hernandes catheter inserted in the ED. 1000 mL clear urine came out spontaneously. Urologist Dr. Couch is been consulted from ER physician. CT reported mild peritoneal fat stranding bilaterally more prominent left side suggesting pyonephritis. UA is bland. Urine culture showed no growth. Empirically patient was treated with ceftriaxone and then Levaquin but discontinued. Discussed with the urologist Dr. Thayer. CT abdomen pelvis again reviewed and seems more peritoneal fat stranding and bilateral hydronephrosis rather than true pyelonephritis. Pyelonephritis/UTI ruled out. 2. NSVT, total duration 22.18-second: Discussed with cardiology. Seems mainly secondary to metabolic in etiology, secondary to hypomagnesemia and acute kidney injury: Magnesium and potassium replacement. Keep mag more than 2 and potassium more than 4. Initially thought to start START amiodarone but later on discontinued. Repeat magnesium level normal. Potassium 4.1. Resolved. Did not require amiodarone. 3. Acute pancreatitis, exact etiology unclear: Lipase is elevated. CT abdomen shows multiple gallstones probably asymptomatic as patient does not have right upper quadrant or epigastric tenderness. Discussed with the surgeon. Patient tolerated diet well. Seen by surgeon and it seems as pancreatitis probably from contiguous spread from left pyonephritis. Asymptomatic cholelithiasis. No inflammation around the gallbladder region. 4.. Electrolyte abnormality: Hyponatremia and hypokalemia most likely secondary to hypovolemia/volume depletion: IV fluid normal saline. Repeat electrolytes. EKG shows A. fib with PVCs at 82 bpm. Hyperkalemia, mild hyponatremia, high anion gap metabolic acidosis secondary to acute kidney injury: Aromatherapist consulted. IV fluid bicarb drip. Kayexalate given. Overall patient electrolytes were managed. 4. Hypotension unclear probably from metoprolol from bradycardia response: Metoprolol is discontinued. Blood pressure was controlled. Did not require vasopressor. 5. Paroxysmal A. fib on heart rate is controlled. Hold Eliquis and other antithrombotic/antiplatelet agent secondary to hematuria. Mild troponin elevation from 0.129, 0.147 and 0.134 most probably from demand ischemia, from acute kidney injury and possible proximal A. fib. Patient has denies history of coronary artery disease/[place] or CHF. 2D echo shows EF 65% with mild LAE. No regional wall motion abnormality. LV function normal. Audit Practice Intern cleared the surgery from cardiology perspective but patient still high risk in view of RUBY, and hypotension. Patient is a scheduled for TURP next Sunday with Dr. Thayer 6.. Type 2 diabetes mellitus with diabetic nephropathy: Accu-Chek AC and HS cover with blood sliding scale. Blood sugar is controlled. 7.. 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 Other comorbidities include hypertension, dyslipidemia, obstructive sleep apnea on BiPAP, periodic limb movement disorder: Patient abdominal distention may be partially from BiPAP. Hold on BiPAP for few days until abdominal disten tion resolved. Multiple comorbidities complicates the present care and expect difficult and delay recovery DVT prophylaxis: Heparin discontinued because of hematuria. Bilateral SCDs. Living will/advanced directive/end of life care: Patient does have living will or advanced directive. DNR CC arrest Discharge medication reconciliation done. Discharge follow-up instructions completed. Discharge process discussed with the patient and all questions were answered to patient's satisfaction. Eliquis to be discontinued on Sunday night. All medications were held except Flomax and Protonix because of acute kidney injury. Total time spent, exact 35 minutes on discharge meds reconciliation, examination, coordination of care with nurses and ancillary staff, review of imaging and blood test and discussion with the patient on follow-up instructions Clinical Impression(s) from Imaging Studies Abdomen/Pelvis CT 09/15/19 12:03 IMPRESSION: There is moderate to severe by the hydronephrosis is more prominent on the left side most likely due to urinary bladder outlet obstruction. There is peritoneal fat stranding bilaterally more prominent on the left side suggesting pyelonephritis. Cholelithiasis. Objective: Seen and examined. color television console monitor reviewed. A. fib, controlled heart rate with intermittent PVCs. Patient denies chest pain, shortness of breath. Blood pressure 101/59 pulse ox 96% on room air On exam General: Alert, Oriented x3, Cooperative HEENT: Atraumatic, PERRLA, EOMI, Normocephalic Neck: Supple, No JVD, Negative Carotid Bruits Lungs: Clear to auscultation, No rhonchi, No wheeze, No rales, air entry diminished in bilateral lung bases diminished Cardiovascular: Regular rate, Normal S1, Normal S2, No murmurs, Irregular Rate A. fib. No major NSVT after 09/17 Abdomen: Bowel Sounds Present, Soft, Non Tender Extremities: Capillary Refill Less than 3 Seconds, Edema Skin: No rashes, No breakdown Musculoskeletal: No Tenderness to Palpation of Joints or Extremities, Arthritic Changes Neurological: Cranial nerves II-XII grossly intact, Deep Tendon Reflexes 2+/4 and Symmetrical, Neuro grossly intact Psych/Mental Status: Normal Affect, Appropriate - Physical Exam Vitals/I&O's: Vital Signs Temp Pulse Resp BP Pulse Ox 97.3 F L 69 16 92/51 L 96 09/19/19 10:29 09/19/19 10:29 09/19/19 10:29 09/19/19 10:29 09/19/19 10:29 Oxygen Delivery Method Room Air Weight: 212 lb 4.8 oz Body Mass Index (BMI) 30.2 Intake and Output for Last 24 Hours 09/17/19 09/18/19 09/19/19 23:59 23:59 23:59 Intake Total 6410.67 / 6410.67 4494.66 / 4494.66 200 / 200 Output Total 6975 / 6975 8275 / 8275 1600 / 1600 Balance -564.33 / -564.33 -3780.34 / -3780.34 -1400 / -1400 Microbiology Past 72 Hours 09/15/19 14:50 Urine Catheter - Hernandes Urine Culture - Final Culture exhibits no growth. Laboratory Results 09/18/19 11:22: POC Glucose 168 H 09/18/19 16:38: POC Glucose 108 09/18/19 22:19: POC Glucose 128 H 09/19/19 05:23: Sodium 136, Potassium 4.1, Chloride 107, Carbon Dioxide 23.0, Anion Gap 6, BUN 43 H, Creatinine 2.18 H, Estim Creat Clear Calc 28.37, Est GFR (MDRD) Af Amer 38 L, Est GFR (MDRD) Non-Af 31 L, BUN/Creatinine Ratio 19.7, Glucose 116 H, Calcium 7.3 L, Magnesium 1.8 09/19/19 05:23: WBC 10.2, RBC 3.07 L, Hgb 9.3 L, Hct 27.4 L, MCV 89.3, MCH 30.3, MCHC 33.9, RDW Std Deviation 42.9, RDW Coeff of Vera 13.0, Plt Count 341, MPV 9.4, Immature Gran % (Auto) 0.500, Neut % (Auto) 58.3, Lymph % (Auto) 23.9, [place] % (Auto) 11.5 H, Eos % (Auto) 5.3 H, Baso % (Auto) 0.5, Absolute Neuts (auto) 6.0, Absolute Lymphs (auto) 2.44, Nucleated RBC % 0 09/19/19 06:29: POC Glucose 96 Current Medications Acetaminophen (Tylenol) 650 mg PO Q6H PRN PRN PRN Reason: Pain Score 1-10/Temp > 100.7 F Albuterol Sulfate (Ventolin Aerosols) 2.5 mg INHALATION Q2H PRN PRN PRN Reason: SOB/Wheezing Dextrose (D50w Syringe) 0 gm IV X1 PRN; Protocol PRN Reason: Hypoglycemia Glucagon () 1 mg IM .X1 PRN PRN Reason: Hypoglycemia Sodium Chloride () 250 mls @ 15 mls/hr IV .[id number] PRN PRN Reason: Saline Flush Sodium Chloride () 250 mls @ 15 mls/hr IV .[id number] PRN PRN Reason: Additional IVPB Infusion Insulin Human Lispro (Humalog Kwikpen (Bkc)) 0 unit SC ACHS [facility]; Protocol Last Admin: 09/19/19 06:30 Dose: Not Given Documented by: Morphine Sulfate () 2 mg IV Q3H PRN PRN PRN Reason: Pain Score 4-10/10 Nitroglycerin (Nitrostat) 0.4 mg SUBLINGUAL Q5M PRN PRN Reason: CARDIAC/CHEST PAIN Nutritional Formula (Lactose Free) (Glucerna Shake) 120 ml PO TIDCM [facility] Last Admin: 09/19/19 09:09 Dose: 120 ml Documented by: Ondansetron HCl (Zofran) 4 mg IV Q8H PRN PRN PRN Reason: NAUSEA/VOMITING Pantoprazole Sodium (Protonix) 40 mg PO DAILY [facility] Prochlorperazine Edisylate (Compazine Iv) 5 mg IV Q4H PRN PRN PRN Reason: Breakthrough Nausea/Vomiting Sodium Chloride () 10 - 40 ml IV UD PRN PRN Reason: SALINE FLUSH Last Admin: 09/18/19 10:05 Dose: 10 ml Documented by: Tamsulosin HCl (Flomax) 0.4 mg PO QHS [facility] Last Admin: 09/18/19 22:20 Dose: 0.4 mg Documented by: Discharge Activity: May Not Drive Weight Bearing Status: Weight bearing as tolerated Call your doctor if you observe: Fever of 101 or Higher, Change in Color, Inability to urinate, Inability to have a bowel movement, Shortness of breath, Dizziness, Fainting spells, Swelling in the ankles, Chest pain, Prolonged hiccoughing, Increased palpitations (irregular heartbeat), Calf discomfort Home Medications: Medications to take at Discharge Pantoprazole Sodium [Protonix] 20 mg PO DAILY 09/15/19 Tamsulosin HCl 0.4 mg PO QHS 09/15/19 Apixaban [Eliquis] 2.5 mg PO BID #0 09/19/19 Hydrochlorothiazide 12.5 mg PO DAILY #0 09/19/19 Lisinopril [Zestril] 10 mg PO DAILY #0 09/19/19 Metformin HCl 500 mg PO DAILY #0 09/19/19 Rosuvastatin Calcium [Crestor] 40 mg PO DAILY #0 09/19/19 Primary Care Physician: Brady Drake MD [Primary Care Provider] - Please follow up with your Primary Care Physician in: ON 09/23/2019 to follow up BMP Please Follow Up With: Solo Bunch MD When: IN 2 WEEKS for RUBY Please Follow Up With: Car Thayer MD When: next week TURP on Sunday Please Follow Up With: Samy Barron MD When: for A fib in 4 weeks Medical Necessity - Tobacco Use Smoking Status: Former smoker Meaningful Use Info Meaningful Use Diagnoses (Choose all that apply): None applicable Inpatient E&M: 601[address] [facility]
--- NOTE | 2019-09-19 11:29 | PHA.DC.MR ---
Pharmacy Service has performed discharge medication reconciliation for this patient. Pt will be holding all medications except for pantoprazole and tamsulosin. The patient's discharge medication list was reviewed for discrepancies and discrepancies were resolved. Home Medications Pantoprazole Sodium [Protonix] 20 mg PO DAILY 09/15/19 Tamsulosin HCl 0.4 mg PO QHS 09/15/19 Apixaban [Eliquis] 2.5 mg PO BID #0 09/19/19 Hydrochlorothiazide 12.5 mg PO DAILY #0 09/19/19 Lisinopril [Zestril] 10 mg PO DAILY #0 09/19/19 Metformin HCl 500 mg PO DAILY #0 09/19/19 Rosuvastatin Calcium [Crestor] 40 mg PO DAILY #0 09/19/19
[2019-09-19 12:40] LABS: Bedside Glucose 147 mg/dL (70-110)
[2019-09-23 12:22] LABS: Hemoglobin A1c 6.3 % (3.8-5.6)
== END 2019-09-19 12:56 | disposition home health service (06) | DRG 682 ==
LOC: ED 14:29 → PCU 14:49
PROVIDERS: Internal Medicine; Admitting Provider Internal Medicine; Emergency Provider Emergency Medicine; PCP Internal Medicine; Visit Provider Internal Medicine
DX: N17.9 Acute kidney failure, unspecified (principal); K85.90 Acute pancreatitis without necrosis or infection, unspecified; N13.8 Other obstructive and reflux uropathy; E87.1 Hypo-osmolality and hyponatremia; E87.2 Acidosis; I47.2 Ventricular tachycardia; E11.22 Type 2 diabetes mellitus with diabetic chronic kidney disease; I12.9 Hypertensive chronic kidney disease with stage 1 through stage 4 chronic kidney disease, or unspecified chronic kidney disease; N18.9 Chronic kidney disease, unspecified; E11.40 Type 2 diabetes mellitus with diabetic neuropathy, unspecified; N40.1 Benign prostatic hyperplasia with lower urinary tract symptoms; N32.0 Bladder-neck obstruction; R35.0 Frequency of micturition; N39.498 Other specified urinary incontinence; R33.8 Other retention of urine; N13.30 Unspecified hydronephrosis; R39.14 Feeling of incomplete bladder emptying; R39.15 Urgency of urination; N18.3 Chronic kidney disease, stage 3 (moderate); R31.0 Gross hematuria; N31.9 Neuromuscular dysfunction of bladder, unspecified; I48.0 Paroxysmal atrial fibrillation; E87.6 Hypokalemia; E86.1 Hypovolemia; G47.61 Periodic limb movement disorder; E83.39 Other disorders of phosphorus metabolism; E87.5 Hyperkalemia; E83.42 Hypomagnesemia; E83.51 Hypocalcemia; I95.2 Hypotension due to drugs; T44.7X5A Adverse effect of beta-adrenoreceptor antagonists, initial encounter; Y92.239 Unspecified place in hospital as the place of occurrence of the external cause; E78.5 Hyperlipidemia, unspecified; M19.90 Unspecified osteoarthritis, unspecified site; K21.9 Gastro-esophageal reflux disease without esophagitis; G47.33 Obstructive sleep apnea (adult) (pediatric); Z79.01 Long term (current) use of anticoagulants; Z79.899 Other long term (current) drug therapy; Z79.84 Long term (current) use of oral hypoglycemic drugs; I69.998 Other sequelae following unspecified cerebrovascular disease; Z91.81 History of falling; Z88.0 Allergy status to penicillin; Z87.891 Personal history of nicotine dependence
CPT/HCPCS: 36415; 74176; 80048; 80053; 81001; 82962; 82977; 83036; 83690; 83735; 84100; 84484; 85025; 87086; 93005; 93306; 97116; 97162; 97166; 97530; 97535; 97802; 97803; 99251; 99285; J1756; J7030; J7040; J7120; Q9957; A4216; G0463; J0610; J0696

== ENCOUNTER 2019-09-27 14:58 | Inpatient (IN) | payer MEDICARE, OTHER, SELFPAY ==
[2019-09-15 15:22] VITALS: BMI 30.2
[2019-09-26] VITALS (11 sets, daily range): BP systolic 97–169; BP diastolic 55–95; PULSE 63–94; RESP 16–18; TEMP 36.3–37.2; O2SAT 95–100; BMI 28.8
--- NOTE | 2019-09-26 | PROS_PTH ---
PATIENT: FRANKIE CHOPRA LOC: MS3 U#:[id number] AGE/SX: 79/M [place] [facility] [place]: Dr. Ama Baum MD : [id number] BED: 1 DIS: 09/29/2019 SPEC #: [id number] RECD: 09/26/19 10:57 STATUS: JAMES REJordi #: [id number] SOLANGE: 09/26/19 00:[address]: Car Thayer DEPT: SURGICAL PATHOLOGY RECD BY: Jose G Carver ENTERED: 09/26/19 10:57 SP TYPE: TURP OTHR DR: Dr. Brady Drake MD Tissues: Prostate, NOS Procedures: Surgery Specimen Level IV HEADER OPERATION: Cysto, TUR prostate, Olympus PRE-OP DIAGNOSIS: BPH, obstruction, urinary retention TISSUE SUBMITTED: Prostate tissue MICROSCOPIC DIAGNOSIS Prostate tissue, TUR: Benign prostatic hyperplasia, glandular and stromal type. Focal basal cell hyperplasia and mild chronic inflammation. FLORINDA:wei 09/29/19 MICROSCOPIC DESCRIPTION Slides are reviewed. GROSS DESCRIPTION Received is one container labeled with the patient's name and designated prostate tissue. The specimen consists of multiple irregular fragments of pink-lai, rubbery, soft tissue that in aggregate weigh 8 gm and measure in aggregate 5 x 4 x 2 cm. The entire specimen is submitted in eight cassettes. / FLORINDA:wei 09/26/19 TC:5 CPT: 10215
[2019-09-26] MEDS: Lactated Ringers 1,000 ML 100 ML IV ×2 (07:56→10:00)
[2019-09-26 08:06] LABS: Bedside Glucose 113 mg/dL (70-110)
--- NOTE | 2019-09-26 08:13 | HP.PCM_ITS ---
History of Present Illness Date of Admission: 09/26/19 Chief Complaint: Urinary retention bilateral hydronephrosis The patient is a 79 year old male with a history of retention of urine and bilateral hydronephrosis presented the hospital with bleeding and bilateral hydronephrosis elevated creatinine acute kidney injury. Since then the urine is cleared up catheter is been in place his creatinine is getting better he is now clinically stable working to proceed with a transurethral resection of the prostate. Spoke to the patient today regarding his surgery all his questions were answered explained we will be cutting the prostate at carb open the channels he can urinate normally, we talked about the risk of bleeding infection, risk of incontinence, risk of bladder control, risk that the surgery may not work he may need a catheter self intermittent catheterization for long- term. After reviewing everything with the patient he was agreeable with proceeding. 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) BPH (benign prostatic hyperplasia) (Chronic) Bilateral hydronephrosis GOLDEN treated with BiPAP (Chronic) CVA (cerebral vascular accident) (Chronic) Multiple thyroid nodules (Chronic) Periodic limb movement disorder (Chronic) PAF (paroxysmal atrial fibrillation) (Chronic) Allergies Penicillins Allergy (Verified 09/23/19 10:58) Hives Home Medications: Ambulatory Orders Medication Instructions Recorded Pantoprazole Sodium [Protonix] 20 mg PO DAILY 09/15/19 Tamsulosin HCl 0.4 mg PO QHS 09/15/19 Apixaban [Eliquis] 2.5 mg PO BID #0 09/19/19 Zolpidem Tartrate [Ambien] 10 mg PO QHS PRN 09/23/19 Surgical History: no surgical history Smoking Status: Former smoker Tobacco Use: Non-smoker Review of Systems Constitutional: Denies: Chills, Fever, Weight Change HEENT: Denies: Head Aches, Sinus Congestion, Sinus Drainage Cardiovascular: Denies: Chest Pain, Palpitations Respiratory: Denies: Cough, Shortness of breath at rest, Sputum production Gastrointestinal: Denies: Abdominal Pain, Nausea, Vomiting Genitourinary: Denies: Dysuria Musculoskeletal: Denies: Joint Pain, Joint Tenderness Skin: Denies: Rash, Wounds Neurological: Denies: Numbness, Tingling, Focal weakness Psychiatric: Denies: Anxiety, Depression, Homicidal Ideations, Suicidal Ideations Hematologic/ Lymphatic: Denies: Easy Bruising, Easy Bleeding VTE Information - Inpt Only VTE Present on Admission: No VTE Mechan Device Prophylaxis: SCD's - Physical Exam Vitals/I&O's: Vital Signs Temp Pulse Resp BP Pulse Ox 98.8 F 86 16 117/71 95 09/26/19 07:44 09/26/19 07:44 09/26/19 07:44 09/26/19 07:44 09/26/19 07:44 Oxygen Delivery Method Room Air Weight: 91.2 kg Body Mass Index (BMI) 28.8 General: Alert, Oriented x3, Cooperative HEENT: Atraumatic, PERRLA, EOMI, Normocephalic Neck: Supple, No JVD, Negative Carotid Bruits Lungs: Clear to auscultation, Normal air movement Cardiovascular: Regular rate, No murmurs Abdomen: Bowel Sounds Present, Soft, Non Tender Extremities: No edema, Capillary Refill Less than 3 Seconds Skin: No rashes, No breakdown Musculoskeletal: No Tenderness to Palpation of Joints or Extremities Neurological: Cranial nerves II-XII grossly intact Psych/Mental Status: Normal Affect, Appropriate Microbiology Past 72 Hours 09/25/19 12:45 Mucosa - Nasopharyngeal Coronavirus COVID-19 PCR - Final Laboratory Results 09/26/19 07:52: POC Glucose 113 H Current Medications Cefazolin Sodium 2 gm/ Sodium (Chloride) 110 mls @ 150 mls/hr IV PREOP ONE Stop: 09/26/19 09:23 Lactated Ringer's () 1,000 mls @ 100 mls/hr IV .Q10H SANDER Last Admin: 09/26/19 07:56 Dose: 100 mls/hr Documented by: Assessment/Plan All Active Problems Acute urinary retention (Acute) Acute pancreatitis (Acute) Bladder outlet obstruction (Acute) Acute kidney injury (Acute) Plan to proceed with a transurethral section of the prostate, consent was signed all his questions were answered.
--- NOTE | 2019-09-26 08:21 | DCINST_ITS ---
Discharge Diet: No Restrictions, Light diet - advance as tolerated Discharge Activity: Return to Normal Activity, May Not Drive - for 2 days. Additional Activity Instructions:: Please be aware that pain medications may cause nausea. You should typically eat light foods as you take your pain medication. Pain medication may cause constipation, if this is a problem for you, please discuss with your doctor. Call your doctor if your incision/area has: Continuous Slow Oozing, Sudden Incr eased Bleeding, Increased Pain/ Swelling, Increased Redness, Foul Smelling Discharge, Swelling at the incision site Call your doctor if you observe: Fever of 101 or Higher, Inability to urinate, Inability to have a bowel movement, Uncontrolled pain Suture Line Care: Avoid Pulling/Pushing, Avoid Pinching/Bending Instructions: Transurethral Resection of the Prostate (TURP): Home Recovery Allergies/Adverse Reactions: Allergies Penicillins Allergy (Verified 09/23/19 10:58) Hives Medications to take at Discharge Pantoprazole Sodium [Protonix] 20 mg PO DAILY 09/15/19 Tamsulosin HCl 0.4 mg PO QHS 09/15/19 Apixaban [Eliquis] 2.5 mg PO BID #0 09/19/19 Zolpidem Tartrate [Ambien] 10 mg PO QHS PRN 09/23/19 Orders to be completed after discharge: Hemoglobin A1c Time Frame: 09/23/19, Facility: [facility], Location: Laboratory Primary Care Physician: Brady Drake MD [Primary Care Provider] - Test Results: Test results from this visit will be discussed in further detail at your follow- up appointment, if applicable. Please Follow Up With: Car Thayer MD When: in 2 weeks, please call to make an appointment.
[2019-09-26] MEDS: Cefazolin 2 GM in 0.9% Normal Saline 100 ML IV (08:32)
[2019-09-26] MEDS: Lubricating Jelly 60 GM Tube 30 GM TOPICAL (08:42)
--- NOTE | 2019-09-26 09:21 | OP.PCM_ITS ---
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 We talked about what risks and benefits are involved and all his questions were addressed he signed the consent form. 79-year-old male was taken back to the operating room after smooth induction of general anesthesia he was placed supine on the table. The legs were then placed in dorsolithotomy position. Penis and testicle perineum were prepped and draped in usual sterile fashion. I took out the existing catheter. We then dilated the meatus to 28 Marshallese. I then went in with a 26 Marshallese continuous flow resectoscope. Once inside the bladder then I inspected he had a lot of bullous edema within the bladder identified the left and right ureteral orifice. No tumors are seen within the bladder. On inspection of the prostate he had some large flapping tissue coming from the roof of the prostate and over the floor the prostate is causing obstruction the length of the prostate is actually quite short most of the obstruction was caused by the flapping BPH growth coming from the top of the prostate. I started by resection at the 6:[address] back to the verumontanum I then resected the right lobe of the prostate the left lobe of the prostate and then went to the bladder neck and resected this flapping tissue from the prostate especially at the 12:00. This was causing most of the obstruction. A large piece was then resected off in the 12:00 and then had to go inside the bladder and resected further into small tiny pieces. I then resected a nice channel all the way back to the verumontanum that a nice flow test had a wide open flow sphincter was intact verumontanum was intact. At the end of the case the left and right ureter orifice were intact all the prostate chips were Ellik out of the bladder hemostasis was obtained. I then put a catheter in the bladder and continuous irrigation the urine was nice and clear and the patient's anesthesia is being reversed. Type of Anesthesia:: General, MAC Drains: 3 way marquez - Admit VTE Documentation VTE Present on Admission: No VTE Mechan Device Prophylaxis: SCD's
[2019-09-26 09:46] LABS: Bedside Glucose 118 mg/dL (70-110)
[2019-09-26] MEDS: 0.9% Normal Saline 1,000 ML 75 ML IV (11:31)
--- NOTE | 2019-09-26 11:53 | PN_ITS ---
Progress Note 79-year-old male status post TURP the three-way catheter clotted off and the nurses called me came up and saw the patient he was not draining urine so we remove the old three-way catheter put in a regular 20 Kinyarwanda catheter and drained a significant amount of urine from his bladder and the catheter clotted off we could not get it open so at this point organ to continue with just a 20 Kinyarwanda catheter the nurse about the irrigate as necessary for any blood clots. STROKE Vital Signs/Narrative: Vital Signs Temp Pulse Resp BP Pulse Ox 09/26/19 11:04 98.0 F 79 16 163/93 H 98 09/26/19 10:29 98.3 F 71 18 166/86 H 100 09/26/19 10:15 68 18 159/91 H 100 09/26/19 10:00 63 18 163/78 H 100 09/26/19 09:45 66 18 169/79 H 100 09/26/19 09:35 97.4 F L 72 18 154/95 H 100
--- NOTE | 2019-09-26 12:22 | CASEMGMT ---
VON MAC NOTE: Call received frommikhail Miryam @ [facility] and she states pt active w/them and receives SN/PT/OT. She asks for [facility] to be notified when pt is discharged. VON Montes, made aware and states will pass this info along to oncoming shifts. Green sheet w/instructions also placed on pt's chart for [facility] to be notified when pt is discharged. Chani ZHANG RN CM
--- NOTE | 2019-09-26 13:32 | NURSING ---
on pt admission to unit, noted to have CBI running fully open with dark blood in the marquez bag. during initial post op assessment, noted that marquez was no longer draining. attempted to manually irrigate with return of small amount of bloody urine and quarter size clot. then was able to irrigate but no urine return. Dr Thayer was called and came to unit, he changed marquez catheter, stopped CBI, irrigated with return and instructed for manual irrigation. pt educated on all of the above and aware to call with increasing bladder pressure. pt Chanel updated on pt status.
[2019-09-26] MEDS: 0.9% Normal Saline 1,000 ML 125 ML IV (19:30)
[2019-09-26] MEDS: Zolpidem Tartrate 5 MG Tablet PO (21:50)
[2019-09-26] MEDS: Tamsulosin HCl 0.4 MG Capsule PO (21:50)
[2019-09-26] MEDS: Ciprofloxacin 500 MG Tablet PO (21:50)
[2019-09-27 01:47] VITALS: BP 104/63; PULSE 74; RESP 16; TEMP 36.6; O2SAT 100
[2019-09-27] MEDS: 0.9% Normal Saline 1,000 ML 125 ML IV ×3 (03:33→19:13)
[2019-09-27 05:57] VITALS: BP 103/54; PULSE 76; RESP 16; TEMP 36.6; O2SAT 96
[2019-09-27] MEDS: Ciprofloxacin 500 MG Tablet PO ×2 (08:16→21:05)
[2019-09-27] MEDS: Docusate Sodium 100 MG Capsule PO (08:16)
[2019-09-27] MEDS: Pantoprazole Sodium 40 MG Tablet PO (08:17)
[2019-09-27 08:31] LABS: Anion Gap 6 (5-15); BUN 35 mg/dL (7-18); BUN/Creat Ratio 16.4 RATIO (10-20); Calcium,Total 8.7 mg/dL (8.5-10.1); Chloride 106 mmol/L (98-107); Creatinine, Serum 2.13 mg/dL (0.70-1.30); EST Glomerular Filtration Rate 32 mL/min (>60); Est Glom Filt Rate - Afr Amer 39 mL/min (>60); Estimated Creatinine Clearance 29.04 ml/min; Glucose 120 mg/dL (74-106); Potassium 5.5 mmol/L (3.5-5.1); Sodium Level 136 mmol/L (136-145)
[2019-09-27 10:19] VITALS: BP 102/55; PULSE 76; RESP 16; TEMP 36.7; O2SAT 98
[2019-09-27 10:30] VITALS: BP 126/84; PULSE 82
--- NOTE | 2019-09-27 10:43 | NURSING ---
Vital signs were obtained prior to getting pt out of bed, he was a little bit dizzy when he got to the chair, but leaned to the left momentarily to the left a min after in the chair, nurse called for help and quickly he sat up better, and when asked if he is okay, he said yes. Reclined him the chair and obtained vs. notified charge nurse and called Dr. Thayer.
[2019-09-27] MEDS: Lactated Ringers 500 ML 999 ML IV (10:57)
[2019-09-27 15:20] VITALS: BP 111/62; PULSE 69; RESP 16; TEMP 36.7; O2SAT 98
[2019-09-27 20:22] VITALS: BP 119/66; PULSE 86; RESP 16; TEMP 36.4; O2SAT 97
[2019-09-27] MEDS: Tamsulosin HCl 0.4 MG Capsule PO (21:05)
[2019-09-27] MEDS: Zolpidem Tartrate 5 MG Tablet PO (21:06)
[2019-09-28] VITALS (7 sets, daily range): BP systolic 82–142; BP diastolic 49–84; PULSE 66–93; RESP 16–18; TEMP 36.5–36.9; O2SAT 94–98
[2019-09-28] MEDS: 0.9% Normal Saline 1,000 ML 125 ML IV (02:58)
[2019-09-28] MEDS: Lactated Ringers 500 ML 999 ML IV (03:03)
[2019-09-28 03:21] LABS: Absolute Neutrophil Count 7.8 X10^3/uL (2.0-7.7); Basophil# 0.03 X10^3/uL; Basophil% 0.3 % (0-1); Eosinophil# 0.39 X10^3/uL; Eosinophils% 3.4 % (0-5); Hematocrit 24.8 % (40-54); Lymphocyte % 18.4 % (19-41); Mean Corp Hgb Conc 32.3 g/dL (32-36); Mean Corpuscular Hgb 30.2 pg (27.0-32.0); Mean Corpuscular Volume 93.6 fL (80-94); Mean Platelet Vol. 8.8 fl (6.2-12.0); Monocyte# 1.03 X10^3/uL; NRBC Flagged by Analyzer 0 % (0-5); Neutrophil # 7.83 X10^3/uL (2.7-7.7); Neutrophil % 68.5 % (47-70); Platelet Count 280 K/mm3 (150-450); RBC Distribution Width CV 12.2 % (11.6-14.6); RBC Distribution Width SD 41.5 fl (35.1-43.9); Red Blood Count 2.65 M/mm3 (4.6-6.2); White Blood Count 11.4 K/mm3 (4.4-11.0)
[2019-09-28 03:45] LABS: Anion Gap 7 (5-15); BUN 34 mg/dL (7-18); BUN/Creat Ratio 17.7 RATIO (10-20); Calcium,Total 8.1 mg/dL (8.5-10.1); Chloride 105 mmol/L (98-107); Creatinine, Serum 1.92 mg/dL (0.70-1.30); EST Glomerular Filtration Rate 36 mL/min (>60); Est Glom Filt Rate - Afr Amer 44 mL/min (>60); Estimated Creatinine Clearance 32.21 ml/min; Glucose 118 mg/dL (74-106); Sodium Level 135 mmol/L (136-145)
--- NOTE | 2019-09-28 07:07 | PCM.PROGNOTE ---
Subjective: 79 yo male s/p turp yesturday marquez came out, was not able to void marquez replaced, urine still bloody, overnight hypotensive and given fluid bolus BP better this am, HCT low this am from bleeding but does not need transfusion HGb 8.0, BP better this am, Heplock IVF. - Physical Exam Vitals/I&O's: Vital Signs Temp Pulse Resp BP Pulse Ox 98.3 F 85 16 115/62 95 09/28/19 03:33 09/28/19 06:31 09/28/19 03:33 09/28/19 06:31 09/28/19 03:33 Oxygen Flow Rate (L/min) 2 Oxygen Delivery Method Room Air Weight: 91.2 kg Body Mass Index (BMI) 28.8 Finger Stick Blood Glucose 118 Intake and Output for Last 24 Hours 09/26/19 09/27/19 09/28/19 23:59 23:59 23:59 Intake Total 4190.42 / 4190.42 7610.41 / 7610.41 1679.17 / 1679.17 Output Total 3750 / 3750 4025 / 4025 1000 / 1000 Balance 440.42 / 440.42 3585.41 / 3585.41 679.17 / 679.17 General: Alert, Oriented x3, Cooperative HEENT: Atraumatic, PERRLA, EOMI, Normocephalic Neck: Supple, No JVD, Negative Carotid Bruits Lungs: Clear to auscultation, Normal air movement Cardiovascular: Regular rate, No murmurs Abdomen: Bowel Sounds Present, Soft, Non Tender Extremities: No edema, Capillary Refill Less than 3 Seconds Skin: No rashes, No breakdown Musculoskeletal: No Tenderness to Palpation of Joints or Extremities Neurological: Cranial nerves II-XII grossly intact Psych/Mental Status: Normal Affect, Appropriate Microbiology Past 72 Hours 09/25/19 12:45 Mucosa - Nasopharyngeal Coronavirus COVID-19 PCR - Final Laboratory Results 09/27/19 07:16: Sodium 136, Potassium 5.5 H, Chloride 106, Carbon Dioxide 24.0, Anion Gap 6, BUN 35 H, Creatinine 2.13 H, Estim Creat Clear Calc 29.04, Est GFR (MDRD) Af Amer 39 L, Est GFR (MDRD) Non-Af 32 L, BUN/Creatinine Ratio 16.4, Glucose 120 H, Calcium 8.7 09/28/19 03:10: WBC 11.4 H, RBC 2.65 L, Hgb 8.0 L, Hct 24.8 L, MCV 93.6, MCH 30.2, MCHC 32.3, RDW Std Deviation 41.5, RDW Coeff of Vera 12.2, Plt Count 280, MPV 8.8, Immature Gran % (Auto) 0.400, Neut % (Auto) 68.5, Lymph % (Auto) 18.4 L, Hooker % (Auto) 9.0, Eos % (Auto) 3.4, Baso % (Auto) 0.3, Absolute Neuts (auto) 7.8 H, Absolute Lymphs (auto) 2.10, Nucleated RBC % 0 09/28/19 03:10: Sodium 135 L, Potassium 5.0, Chloride 105, Carbon Dioxide 23.0, Anion Gap 7, BUN 34 H, Creatinine 1.92 H, Estim Creat Clear Calc 32.21, Est GFR (MDRD) Af Amer 44 L, Est GFR (MDRD) Non-Af 36 L, BUN/Creatinine Ratio 17.7, Glucose 118 H, Calcium 8.1 L Current Medications Acetaminophen (Tylenol) 325 mg PO Q4H PRN PRN PRN Reason: Pain Score 1-10/10 Al Hydroxide/Mg Hydroxide (Mylanta Ii) 30 ml PO Q4H PRN PRN PRN Reason: Heartburn Ciprofloxacin HCl (Cipro) 500 mg PO BID [facility] Last Admin: 09/27/19 21:05 Dose: 500 mg Documented by: Docusate Sodium (Colace) 100 mg PO BID [facility] Last Admin: 09/27/19 21:03 Dose: Not Given Documented by: Sodium Chloride () 250 mls @ 15 mls/hr IV .[id number] PRN PRN Reason: Saline Flush Sodium Chloride () 250 mls @ 15 mls/hr IV .[id number] PRN PRN Reason: Additional IVPB Infusion Ibuprofen (Motrin) 600 mg PO Q6H PRN PRN PRN Reason: Pain Score 1-10/10 Pantoprazole Sodium (Protonix) 40 mg PO DAILY [facility] Last Admin: 09/27/19 08:17 Dose: 40 mg Documented by: Sodium Chloride () 10 - 40 ml IV UD PRN PRN Reason: SALINE FLUSH Tamsulosin HCl (Flomax) 0.4 mg PO QHS [facility] Last Admin: 09/27/19 21:05 Dose: 0.4 mg Documented by: Zolpidem Tartrate (Ambien (Generic)) 5 mg PO QHS PRN PRN Reason: INSOMNIA Last Admin: 09/27/19 21:06 Dose: 5 mg Documented by: Medical Necessity - Tobacco Use Smoking Status: Former smoker Tobacco Use: Non-smoker Assessment/Plan All Active Problems Acute urinary retention (Acute) Acute pancreatitis (Acute) Bladder outlet obstruction (Acute) Acute kidney injury (Acute) continue to monitor hold discharge, inpatient for now for low BP and anemia 2nd to surgery I dont think he need transfusion, consult medical team for manegement of low BP.
[2019-09-28] MEDS: Ciprofloxacin 500 MG Tablet PO ×2 (07:49→21:02)
[2019-09-28] MEDS: Pantoprazole Sodium 40 MG Tablet PO (07:49)
[2019-09-28] MEDS: Docusate Sodium 100 MG Capsule PO ×2 (07:49→21:02)
--- NOTE | 2019-09-28 10:55 | NURSING ---
irrigated with 60 ml of ns, sm to mod of clots returned, and had a total of 800 returns.
[2019-09-28] MEDS: Zolpidem Tartrate 5 MG Tablet PO (21:02)
[2019-09-28] MEDS: Tamsulosin HCl 0.4 MG Capsule PO (21:02)
[2019-09-29 02:49] VITALS: BP 98/61; PULSE 72; RESP 16; TEMP 36.5; O2SAT 98
[2019-09-29 05:35] LABS: Hematocrit 26.4 % (40-54); Hemoglobin 8.7 g/dL (13.0-16.5); Mean Platelet Vol. 8.9 fl (6.2-12.0); Platelet Count 328 K/mm3 (150-450); RBC Distribution Width CV 12.3 % (11.6-14.6); RBC Distribution Width SD 41.2 fl (35.1-43.9); White Blood Count 11.8 K/mm3 (4.4-11.0)
[2019-09-29 05:57] LABS: Anion Gap 8 (5-15); BUN 33 mg/dL (7-18); BUN/Creat Ratio 16.8 RATIO (10-20); Calcium,Total 8.9 mg/dL (8.5-10.1); Chloride 105 mmol/L (98-107); Creatinine, Serum 1.96 mg/dL (0.70-1.30); EST Glomerular Filtration Rate 35 mL/min (>60); Est Glom Filt Rate - Afr Amer 43 mL/min (>60); Estimated Creatinine Clearance 31.55 ml/min; Glucose 115 mg/dL (74-106); Potassium 4.8 mmol/L (3.5-5.1); Sodium Level 137 mmol/L (136-145)
--- NOTE | 2019-09-29 07:14 | PN_ITS ---
Subjective: 79-year-old male status post TURP had to keep in the hospital longer because of more bleeding and hypotension this is finally resolved the urine is clear hematocrit is up to 8.7 he looks well this morning we will remove his catheter for another voiding trial. - Physical Exam Vitals/I&O's: Vital Signs Temp Pulse Resp BP Pulse Ox 97.7 F L 72 16 98/61 98 09/29/19 02:49 09/29/19 02:49 09/29/19 02:49 09/29/19 02:49 09/29/19 02:49 Oxygen Flow Rate (L/min) 2 Oxygen Delivery Method Room Air Weight: 91.2 kg Body Mass Index (BMI) 28.8 Finger Stick Blood Glucose 118 Intake and Output for Last 24 Hours 09/27/19 09/28/19 09/29/19 23:59 23:59 23:59 Intake Total 7610.41 / 7610.41 3939.59 / 4139.59 450 / 450 Output Total 4025 / 4025 3800 / 4660 2040 / 204 Balance 3585.41 / 3585.41 139.59 / -520.41 -1590 / -1590 General: Alert, Oriented x3, Cooperative HEENT: Atraumatic, PERRLA, EOMI, Normocephalic Neck: Supple, No JVD, Negative Carotid Bruits Lungs: Clear to auscultation, Normal air movement Cardiovascular: Regular rate, No murmurs Abdomen: Bowel Sounds Present, Soft, Non Tender Extremities: No edema, Capillary Refill Less than 3 Seconds Skin: No rashes, No breakdown Musculoskeletal: No Tenderness to Palpation of Joints or Extremities Neurological: Cranial nerves II-XII grossly intact Psych/Mental Status: Normal Affect, Appropriate Laboratory Results 09/29/19 05:15: WBC 11.8 H, RBC 2.90 L, Hgb 8.7 L, Hct 26.4 L, MCV 91.0, MCH 3 0.0, MCHC 33.0, RDW Std Deviation 41.2, RDW Coeff of Vera 12.3, Plt Count 328, MPV 8.9 09/29/19 05:15: Sodium 137, Potassium 4.8, Chloride 105, Carbon Dioxide 24.0, Anion Gap 8, BUN 33 H, Creatinine 1.96 H, Estim Creat Clear Calc 31.55, Est GFR (MDRD) Af Amer 43 L, Est GFR (MDRD) Non-Af 35 L, BUN/Creatinine Ratio 16.8, Glucose 115 H, Calcium 8.9 Current Medications Acetaminophen (Tylenol) 325 mg PO Q4H PRN PRN PRN Reason: Pain Score 1-10/10 Al Hydroxide/Mg Hydroxide (Mylanta Ii) 30 ml PO Q4H PRN PRN PRN Reason: Heartburn Ciprofloxacin HCl (Cipro) 500 mg PO BID [facility] Last Admin: 09/28/19 21:02 Dose: 500 mg Documented by: Docusate Sodium (Colace) 100 mg PO BID [facility] Last Admin: 09/28/19 21:02 Dose: 100 mg Documented by: Sodium Chloride () 250 mls @ 15 mls/hr IV .[id number] PRN PRN Reason: Saline Flush Sodium Chloride () 250 mls @ 15 mls/hr IV .[id number] PRN PRN Reason: Additional IVPB Infusion Ibuprofen (Motrin) 600 mg PO Q6H PRN PRN PRN Reason: Pain Score 1-10/10 Pantoprazole Sodium (Protonix) 40 mg PO DAILY [facility] Last Admin: 09/28/19 07:49 Dose: 40 mg Documented by: Sodium Chloride () 10 - 40 ml IV UD PRN PRN Reason: SALINE FLUSH Tamsulosin HCl (Flomax) 0.4 mg PO QHS [facility] Last Admin: 09/28/19 21:02 Dose: 0.4 mg Documented by: Zolpidem Tartrate (Ambien (Generic)) 5 mg PO QHS PRN PRN Reason: INSOMNIA Last Admin: 09/28/19 21:02 Dose: 5 mg Documented by: Medical Necessity - Tobacco Use Smoking Status: Former smoker Tobacco Use: Non-smoker Assessment/Plan All Active Problems Acute urinary retention (Acute) Acute pancreatitis (Acute) Bladder outlet obstruction (Acute) Acute kidney injury (Acute) 79-year-old male with history of BPH with obstruction status post TURP kept in the hospital longer because of hypotension and bleeding this is resolved today we will remove the catheter for voiding trial. If doing well he can go home today without a catheter if he still can urinate have to go home with a catheter 18 Portuguese.
[2019-09-29] MEDS: Ciprofloxacin 500 MG Tablet PO (08:59)
[2019-09-29] MEDS: Pantoprazole Sodium 40 MG Tablet PO (08:59)
[2019-09-29] MEDS: Docusate Sodium 100 MG Capsule PO (08:59)
[2019-09-29 10:00] VITALS: BP 116/63; PULSE 77; RESP 18; TEMP 36.6; O2SAT 98
--- NOTE | 2019-09-29 11:30 | CASEMGMT ---
VON MAC Face to Face with patient for initial transition planning/care coordination assessment. VON MAC introduced self and role at [facility]. Patient lying in bed, alert and oriented. Patient willing to participate in assessment and is able to answer all questions appropriately. Care providers, pharmacy, and demographics verified. Patient wishes to discharge home, with resumption of HHC with [facility]. Patient states he has no further needs or concerns at this time. CM to follow for discharge planning needs that may arise. PCP: Vidal Specialists: Jeovany urologist Preferred [facility]acy: [facility] Insurance: [employer] Prescription Benefit: yes Living Will/HPOA: yes, son Gurdeep Daugherty LNOK: , son Living Arrangements: Patient lives with in 2 story home with 3 steps and grab bars to enter the home. Patient states he is independent at home. Transportation: self/ DME/HHC: Patient states he has walker, raised toilet, grab bars, and bipap at home. Patient is active with [facility] for SN, PT, OT. VON MAC called [facility] and updated regarding discharge for today. Disposition Plan: Patient to discharge home with resumption of HHC, family support, and follow-up plans in place. Em ZHANG, RN, CM
[2019-09-29 15:28] VITALS: BP 148/78; PULSE 90; RESP 18; TEMP 36.6; O2SAT 96
--- NOTE | 2019-09-29 16:37 | NURSING ---
pts called in with questions regarding medications to take at home, specifically his eliquis. this RN called Dr Thayer to clarify. per Dr Thayer, pt to hold eliquis until follow-ups with MD in office. pts updated on doctors orders. denies further questions.
== END 2019-09-29 15:38 | disposition home or self-care (01) | DRG 988 ==
LOC: SDC 16:35 → MS3 16:35
PROVIDERS: Admitting Provider Urology; PCP Internal Medicine; Referring Provider Urology; Visit Provider Student in an Organized Health Care Education/Training Program
PROC: 0VT08ZZ Resection of Prostate, Via Natural or Artificial Opening Endoscopic (ICD-10-PCS; principal; 2019-09-26 08:40)
DX: I95.9 Hypotension, unspecified (principal); N13.8 Other obstructive and reflux uropathy; N40.1 Benign prostatic hyperplasia with lower urinary tract symptoms; R33.8 Other retention of urine; N28.9 Disorder of kidney and ureter, unspecified; E11.21 Type 2 diabetes mellitus with diabetic nephropathy; I48.0 Paroxysmal atrial fibrillation; I10 Essential (primary) hypertension; E78.5 Hyperlipidemia, unspecified; M19.90 Unspecified osteoarthritis, unspecified site; G47.61 Periodic limb movement disorder; G47.33 Obstructive sleep apnea (adult) (pediatric); K21.9 Gastro-esophageal reflux disease without esophagitis; Z79.899 Other long term (current) drug therapy; Z88.0 Allergy status to penicillin; Z87.891 Personal history of nicotine dependence; Z86.73 Personal history of transient ischemic attack (TIA), and cerebral infarction without residual deficits
CPT/HCPCS: 36415; 80048; 82962; 85025; 85027; 87635; 88305; 97802; G2023; J7030; J7120; J2405; U0004

== ENCOUNTER → 2019-10-14 10:53 | Outpatient (CLI) | payer MEDICARE, OTHER, SELFPAY ==
[2019-09-26 10:49] VITALS: BMI 28.8
[2019-10-14 11:40] LABS: Anion Gap 8 (5-15); BUN 29 mg/dL (7-18); BUN/Creat Ratio 15.7 RATIO (10-20); Calcium,Total 9.2 mg/dL (8.5-10.1); Chloride 104 mmol/L (98-107); Creatinine, Serum 1.85 mg/dL (0.70-1.30); EST Glomerular Filtration Rate 38 mL/min (>60); Est Glom Filt Rate - Afr Amer 46 mL/min (>60); Glucose 141 mg/dL (74-106); Potassium 4.3 mmol/L (3.5-5.1); Sodium Level 138 mmol/L (136-145)
== END ==
PROVIDERS: PCP Internal Medicine; Visit Provider Internal Medicine
DX: N17.9 Acute kidney failure, unspecified (principal)
CPT/HCPCS: 36415; 80048

== ENCOUNTER → 2020-01-08 13:45 | Outpatient (CLI) | payer MEDICARE, OTHER, SELFPAY ==
[2019-09-26 10:49] VITALS: BMI 28.8
[2019-12-22 11:37] VITALS: BMI 30.5
--- NOTE | 2020-01-08 13:48 | US_ITS ---
STUDY: RENAL ULTRASOUND - COMPLETE REASON FOR EXAM: Male, 79 years old. CKD 3 TECHNIQUE: Ultrasound evaluation of the kidneys was performed with real-time and static gonzalez-scale imaging. COMPARISON: None. FINDINGS: RIGHT KIDNEY: Normal location of the right kidney, which is normal in size. The right kidney measures 11.1 cm x 6.1 cm x 6.2 cm. There is a normal cortex of the right kidney. The renal cortex measures 1.4 cm. There is no right renal mass or cyst. There are no right renal calculi. There is no right hydronephrosis. DISTAL RIGHT URETER: There is non-visualization of the distal right ureter. There is no demonstrated right ureterovesical junction calculus. There is a visualized right ureteral jet. LEFT KIDNEY: Normal location of the left kidney, which is normal in size. The left kidney measures 11.0 cm x 4.5 cm x 4.7 cm. There is a normal cortex of the left kidney. The renal cortex measures 1.6 cm. There is no left renal mass or cyst. There are no left renal calculi. There is mild hydronephrosis of the left kidney. DISTAL LEFT URETER: There is non-visualization of the distal left ureter. There is no demonstrated left ureterovesical junction calculus. There is a visualized left ureteral jet. BLADDER: The distended urinary bladder has a volume of 548.6 ml. Bladder wall trabeculations. There is no demonstrated mass within the urinary bladder. There are no demonstrated bladder calculi. US/Kidney and Bladder IMPRESSION: Mild degree of left-sided hydronephrosis. Bladder wall trabeculations. Electronically Signed: Geoff Mazariegos, at 11:01 EDT , Service support ,
[2020-01-08 15:56] LABS: Protein, Urine (Random) 14.2 mg/dL (<11.9); Protein:Creat Ratio 198 mg/g CRE (0-200)
[2020-01-08 16:28] LABS: Anion Gap 6 (5-15); BUN 26 mg/dL (7-18); Calcium,Total 9.5 mg/dL (8.5-10.1); Chloride 104 mmol/L (98-107); EST Glomerular Filtration Rate 57 mL/min (>60); Est Glom Filt Rate - Afr Amer 68 mL/min (>60); Glucose 113 mg/dL (74-106); Phosphorus 3.5 mg/dL (2.5-4.9); Potassium 4.2 mmol/L (3.5-5.1); Sodium Level 136 mmol/L (136-145)
[2020-01-08 16:33] LABS: Vitamin D,25 Hydroxy 58.1 ng/mL
[2020-01-14 16:08] LABS: PROEL- A/G Ratio 1.1 (0.7-1.7); PROEL- Albumin 3.9 g/dL (2.9-4.4); PROEL- Alpha-1 Globulin 0.2 g/dL (0.0-0.4); PROEL- Alpha-2 Globulin 1.1 g/dL (0.4-1.0); PROEL- Beta Globulin 1.1 g/dL (0.7-1.3); PROEL- Gamma Globulin 1.1 g/dL (0.4-1.8); PROEL- Globulin, Total 3.5 g/dL (2.2-3.9); PROEL- TOTAL PROTEIN 7.4 g/dL (6.0-8.5); PROELU- Albumin, Urine 30.7 % (.); PROELU- Alpha-1-Globulin,Ur 1.8 % (.); PROELU- Alpha-2-Globulin,Ur 15.3 % (.); PROELU- Beta Globulin, Ur 29.9 % (.); PROELU- Gamma Globulin, Ur 22.3 % (.); Total Protein, Ur 7.1 mg/dL (Not Estab.)
== END ==
PROVIDERS: PCP Internal Medicine; Referring Provider Internal Medicine; Visit Provider Internal Medicine
DX: N18.3 Chronic kidney disease, stage 3 (moderate) (principal); N17.9 Acute kidney failure, unspecified
CPT/HCPCS: 36415; 76770; 80048; 82306; 82570; 84100; 84156; 84165; 84166

== ENCOUNTER → 2020-01-10 11:09 | Outpatient (CLI) | payer MEDICARE, OTHER, SELFPAY ==
[2019-12-22 11:37] VITALS: BMI 30.5
[2020-01-10 12:09] LABS: 24 Hour Urine Protein 246.7 mg/24HR (<150 MG/24HR); 24HR. UA Prot. Total Volume 1725 mL; Creat.Clear Total Volume 1725 mL; Creatinine Clearance 64 ml/min (100-200); Creatinine Serum Creat 1.3 mg/dL (0.8-1.3); EST Glomerular Filtration Rate 57 mL/min (>60); Est Glom Filt Rate - Afr Amer 68 mL/min (>60); Urine Protein (24 Hour) 14.3 mg/dL (<11.9)
== END ==
PROVIDERS: PCP Internal Medicine; Referring Provider Internal Medicine; Visit Provider Internal Medicine
DX: N18.3 Chronic kidney disease, stage 3 (moderate) (principal); N17.9 Acute kidney failure, unspecified
CPT/HCPCS: 81050; 82575; 84156

== ENCOUNTER 2020-01-15 17:54 | Emergency (ER) | payer MEDICARE, OTHER, SELFPAY ==
[2019-12-22 11:37] VITALS: BMI 30.5
[2020-01-15 17:55] VITALS: BP 127/81; PULSE 76; RESP 18; TEMP 36.1; O2SAT 97; BMI 29.9
--- NOTE | 2020-01-15 18:10 | EKG12_ITS ---
Test Reason : DYSRHYTHMIA Blood Pressure : / mmHG Vent. Rate : 064 BPM Atrial Rate : 070 BPM P-R Int : 000 ms QRS Dur : 082 ms QT Int : 400 ms P-R-T Axes : 000 029 041 degrees QTc Int : 412 ms Atrial fibrillation Abnormal ECG Confirmed by FRANK CLARKE, KYLEE ([id number]), story editor MERLINE TOLLIVER ([id number]) on 01/19/2020 1:34:52 PM Referred By: Confirmed By:KYLEE MARIE MD
--- NOTE | 2020-01-15 18:33 | ED.DCSUM_ITS ---
History of Present Illness Chief Complaint: Head Injury Informant: Patient, Significant Other Onset: - - And spouse report multiple falls since September. He has had 5 falls in the past month. Most recent fall is approximately 1 week ago. Mechanism/Context: Blunt Injury, Fall Quality of Pain: Dull Current Severity: Mild Maximum Severity: Moderate Worsened by: Nothing Relieved by: Nothing Associated Symptoms: - - Trouble with balance Narrative: Patient is an elderly male on Eliquis. Took last dose of Eliquis this morning. He is on 2.5 mg. He is on Eliquis for atrial fib and stroke in 2017. Patient last ate earlier this afternoon. States he had a hot dog. Patient does report headache. Denies double vision, blurred vision loss of vision. 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 He denies trouble with speech or swallowing. Denies cardiac respiratory symptoms. He denies nausea or vomiting. He denies black or maroon stool. He denies paresthesia, anesthesia or motor weakness upper or lower extremities. He does report trouble with balance. He presented with disc from [facility] outpatient radiology suite. Disc was reviewed. He has a dural mostly subacute subdural hematoma with evidence of acute bleed. There appears to be a small epidural hematoma noted on image 14 and 15 that was not commented on by the radiologist. Patient is requesting transfer to [facility]. Prior similar symptoms: No Recent Illness/Hospitalization: No - Past Medical History (1) CVA (cerebral vascular accident) Status: Chronic (2) Essential hypertension Status: Chronic (3) GERD (gastroesophageal reflux disease) Status: Chronic (4) Hyperlipidemia Status: Chronic (5) GOLDEN treated with BiPAP Status: Chronic (6) Osteoarthritis Status: Chronic (7) PAF (paroxysmal atrial fibrillation) Status: Chronic (8) Type 2 diabetes mellitus with diabetic nephropathy, without long-term current use of insulin Status: Chronic Past Medical History - Allergies and Home Meds Allergies/Adverse Reactions: Allergies Penicillins Allergy (Verified 01/15/20 17:54) Hives Primary Care Physician: Brady Drake MD [Primary Care Provider] - Prior records reviewed: Yes Surgical History: noncontributory Lives: Spouse/ Significant Other Smoking Status: Former smoker Alcohol: None Drugs: None Review of Systems General: Denies: Chills, Fever, Malaise Eyes: Denies: Visual changes - bilaterally, Blurred Vision - bilaterally ENT: Denies: Bilateral ear pain, Rhinorrhea, Sore throat Cardiovascular: Denies: Chest pain, Palpitations Respiratory: Denies: Dyspnea, Cough, Sputum, Dyspnea on exertion Gastrointestinal: Denies: Abdominal pain, Nausea, Vomiting, Diarrhea Genitourinary: Denies: Dysuria, Hematuria, Frequency Musculoskeletal: Denies: Myalgias, Arthralgias, Neck pain, Back pain, Swelling, Extremity Pain, -, - Skin: Denies: Rash, Wounds Neurological: Reports: Headache, Numbness, - - Trouble with walking, balance off. Denies: Weakness, Parasthesia Endocrine: Denies: Polyuria, Polydipsia Hematologic: Reports: Easy bruising Physical Exam Vital Signs/Narrative: Vital Signs Temp Pulse Resp BP Pulse Ox 01/15/20 17:55 97 F L 76 18 127/81 H 97 Inital Vital Signs reviewed: Yes General: Well nourished, Well developed Head: Normocephalic, Atraumatic Eyes: Perrl, EOMI ENT: TM's clear, No hemotympanum or drainage, No trauma Neck: Nontender, Full ROM Cardiovascular: Regular rate, Regular rhythm, No murmurs Respiratory: No distress, CTA bilaterally, Chest nontender Abdomen: Soft, Nontender, Nondistended, Normal bowel sounds Back: Nontender Skin: Normal color, No rash Neurological: Alert, Oriented x3, Cranial nerves II-XII grossly intact, Normal Strength, Normal Sensation, Normal DTR - There is no clonus or Babinski sign., - - Nose to finger and [id number] were performed adequately. He appears slightly unsteady watching him ambulate from triage to his examination room. Psychological: Normal affect - Glascow Coma Scale Eye Opening: Spontaneous Motor: Obeys Commands Verbal: Oriented Coma Scale Total: 15 Diagnostic/Tx/Re-eval - EKG Initial EKG Interpretation: Atrial Fibrillation - Atrial fibrillation with ventricular rate of 64. QRS duration 82 ms. QT duration 400 ms. Florence is normal. There is no ischemic changes noted. - Medical Decision Making With subacute subdural as well as acute bleed. There may be a small epidural hematoma noted on image 14 and 15. Patient requested transfer to [facility]. He he was informed he would need to go to a trauma facility in the closest trauma facility affiliated with the [facility]. Patient states that would be fine. Spoke with the neurosurgeon Dr. Munir Sauceda. Discussed concerns regarding epidural. After discussion in agreement this would be highly unlikely since his last fall was 1 week ago. Would like patient admitted to neuro ICU. Awaiting callback from neuro past due accounts clerk to accept admission. Kcentra was not given since there is a 4 to 10% incidence of stroke. Patient was accepted by Dr. Espino Critical care time (excluding procedures): 30-74 minutes - This included independent review of CT head, history and physical, documentation, discussion with transfer nurse at [facility], discussion with neurosurgeon and neuro past due accounts clerk. Also included discussion with patient and family requiring need for transfer. ED Disposition - Plan for ED Patient: Disposition: [facility] Diagnosis: Subdural hematoma, acute, Subacute subdural hematoma, Atrial fibrillation Referrals: Brady Draek MD [Primary Care Provider] -
[2020-01-15 18:44] LABS: Absolute Lymphocyte Count 3.44 X10^3/uL (0.83-4.51); Absolute Neutrophil Count 6.9 X10^3/uL (2.0-7.7); Basophil# 0.04 X10^3/uL; Basophil% 0.3 % (0-1); Eosinophil# 0.35 X10^3/uL; Eosinophils% 3.1 % (0-5); Hematocrit 40.2 % (40-54); Hemoglobin 13.4 g/dL (13.0-16.5); Lymphocyte # 3.44 X10^3/ul (4.0); Lymphocyte % 30.1 % (19-41); Mean Corp Hgb Conc 33.3 g/dL (32-36); Mean Corpuscular Hgb 29.9 pg (27.0-32.0); Mean Corpuscular Volume 89.7 fL (80-94); Mean Platelet Vol. 9.6 fl (6.2-12.0); Monocyte# 0.68 X10^3/uL; Monocyte% 5.9 % (0-10); NRBC Flagged by Analyzer 0 % (0-5); Neutrophil % 60.3 % (47-70); Platelet Count 289 K/mm3 (150-450); RBC Distribution Width CV 12.1 % (11.6-14.6); RBC Distribution Width SD 39.8 fl (35.1-43.9); Red Blood Count 4.48 M/mm3 (4.6-6.2); White Blood Count 11.4 K/mm3 (4.4-11.0)
[2020-01-15 18:47] LABS: ALB/GLOB Ratio 0.9 RATIO (0.9-2.4); AST(SGOT) 14 U/L (15-37); Alanine Aminotransfer ALT/SGPT 24 U/L (16-61); Albumin, Serum 3.9 g/dL (3.2-5.0); Alkaline Phosphatase 108 U/L (45-117); Anion Gap 8 (5-15); BUN 26 mg/dL (7-18); Calcium,Total 9.4 mg/dL (8.5-10.1); Chloride 106 mmol/L (98-107); EST Glomerular Filtration Rate 57 mL/min (>60); Est Glom Filt Rate - Afr Amer 68 mL/min (>60); Estimated Creatinine Clearance 47.57 ml/min; Globulin 4.2 g/dL (2.2-4.2); Glucose 102 mg/dL (74-106); Potassium 4.1 mmol/L (3.5-5.1); Protein, Total 8.1 g/dL (6.4-8.2); Sodium Level 138 mmol/L (136-145)
[2020-01-15 18:52] LABS: International Normalized Ratio 1.3; Partial Thromboplast Time 32.9 Seconds (24.1-36.2); Prothrombin Time (Protime)PT. 15.2 SECONDS (11.7-14.9)
[2020-01-15 19:46] VITALS: BP 135/83; PULSE 75; RESP 18; O2SAT 97
[2020-01-15 20:36] VITALS: BP 144/81; PULSE 71; RESP 18; O2SAT 97
== END 2020-01-15 21:23 | disposition short-term general hospital (02) ==
LOC: ED 18:55
PROVIDERS: Emergency Provider Emergency Medicine; PCP Internal Medicine
DX: S06.5X9A Traumatic subdural hemorrhage with loss of consciousness of unspecified duration, initial encounter (principal); W19.XXXA Unspecified fall, initial encounter; Y93.9 Activity, unspecified; Y92.9 Unspecified place or not applicable; Y99.9 Unspecified external cause status; R29.6 Repeated falls; I48.0 Paroxysmal atrial fibrillation; E11.21 Type 2 diabetes mellitus with diabetic nephropathy; I10 Essential (primary) hypertension; E78.5 Hyperlipidemia, unspecified; K21.9 Gastro-esophageal reflux disease without esophagitis; G47.33 Obstructive sleep apnea (adult) (pediatric); M19.90 Unspecified osteoarthritis, unspecified site; Z79.01 Long term (current) use of anticoagulants; Z79.84 Long term (current) use of oral hypoglycemic drugs; Z79.899 Other long term (current) drug therapy; Z86.73 Personal history of transient ischemic attack (TIA), and cerebral infarction without residual deficits; Z87.891 Personal history of nicotine dependence
CPT/HCPCS: 80053; 85025; 85610; 85730; 93005; 99285; A4216